=== PATIENT | female | born 1970 | race Caucasian/White ===

== ENCOUNTER → 2019-12-09 09:23 | Outpatient (BNVA) | payer MEDICAID, SELFPAY | PROVIDERS: Family Provider Registered Nurse; PCP Nurse Practitioner Family; Visit Provider Nurse Practitioner | DX: G89.29 Other chronic pain (principal); M48.061 Spinal stenosis, lumbar region without neurogenic claudication; F17.210 Nicotine dependence, cigarettes, uncomplicated; Z79.891 Long term (current) use of opiate analgesic | CPT/HCPCS: 99212; 99213 ==

== ENCOUNTER → 2019-12-23 10:50 | Outpatient (BNVA) | payer MEDICAID, SELFPAY | PROVIDERS: Family Provider Registered Nurse; PCP Nurse Practitioner Family; Visit Provider Nurse Practitioner Psychiatric/Mental Health | DX: F43.12 Post-traumatic stress disorder, chronic (principal); F33.2 Major depressive disorder, recurrent severe without psychotic features; F10.21 Alcohol dependence, in remission; F17.210 Nicotine dependence, cigarettes, uncomplicated | CPT/HCPCS: 99213 ==

== ENCOUNTER → 2020-02-05 09:36 | Outpatient (BNVA) | payer MEDICAID, SELFPAY | PROVIDERS: Family Provider Registered Nurse; PCP Nurse Practitioner Family; Visit Provider Nurse Practitioner | DX: M48.061 Spinal stenosis, lumbar region without neurogenic claudication (principal); M47.816 Spondylosis without myelopathy or radiculopathy, lumbar region; F17.210 Nicotine dependence, cigarettes, uncomplicated; Z79.891 Long term (current) use of opiate analgesic; Z71.6 Tobacco abuse counseling | CPT/HCPCS: 99213; 99214 ==

== ENCOUNTER 2020-03-22 10:48 | Outpatient (CLI) | payer MEDICAID, SELFPAY ==
--- NOTE | 2020-03-22 11:00 | MR_ITS ---
WS: [id number] MRI LUMBAR SPINE NONCONTRAST HISTORY: lumbar pain COMPARISON: 04/02/2019 TECHNIQUE: Sagittal and axial multisequence imaging is submitted. Prior cervical fusion. Normal lumbar alignment. No fractures or marrow edema. Mild disc space narrowing and desiccation at L4-5 and L5-S1. No progression. Conus terminates normally at L1-2 disc level. L1-L2: Normal. L2-L3: Small amount of fluid in the facet joints. No stenosis. L3-L4: Asymmetric facet joint arthropathy, greatest on the RIGHT. RIGHT facet joint arthritis and lig amentum flavum hypertrophy encroaching upon the RIGHT lateral thecal sac with mild deformity. Small a mount of fluid in the facet joints bilaterally. Moderate stenosis involving the RIGHT subarticular re cess and proximal foramen without progression. L4-L5: Moderate ligamentum flavum hypertrophy and facet arthritis with mild annular disc bulging. No focal disc protrusion. Bilateral facet joint cysts. Mild central stenosis. Moderate RIGHT and moderat e to severe LEFT foraminal stenosis without significant progression of disease. Bilateral annular fis sures. L5-S1: Moderate facet joint arthritis bilaterally with mild ligamentum flavum hypertrophy. Very mild encroachment upon the central thecal sac. Mild osteophytic ridging. Mild bilateral foraminal narrowin g. Fluid in the facet joint on the RIGHT. Bilateral facet joint cysts. Paraspinal soft tissues are negative. Mild atherosclerosis aorta. MR/MR lumbar spine wo con* [id number] IMPRESSION: 1. Stenoses and degenerative changes at L4-5 and L5-S1 are similar to the prio r study. Most significant stenosis involving the foramina at L4-5. 2. Moderate RIGHT subarticular recess and proximal foraminal stenosis at L3-4 with no change. 3. Mild central stenosis with moderate RIGHT and moderate to severe LEFT kimberly inal stenosis at L4-5. 4. Mild bilateral foraminal stenosis at L5-S1. Not quite as significant as on the prior study but there is still advanced facet joint arthritis.
--- NOTE | 2020-03-22 12:29 | XRR_ITS ---
PROCEDURE INFORMATION: Exam: XR Lumbosacral Spine, 2 or 3 Views Exam date and time: 03/22/2020 12:38 PM Age: 49 years old Clinical indication: Low back pain; Additional info: Lumbar pain x 5 years TECHNIQUE: Imaging protocol: XR of the lumbosacral spine, 2 or 3 views. COMPARISON: CR Lumbar Spine Flex/Extens [id number] 10/22/2018 4:22 PM FINDINGS: Vertebrae: Degenerative change with prominent lumbar facet arthropathy. Anatomic alignment. No instability. Questionable L5 spondylolysis, which can be better evaluated with oblique radiographs. Gastrointestinal tract: Prominent stool. Vasculature: Vascular calcification. XR/XR lumbar spine f/e only [id number] IMPRESSION: Degenerative change with prominent lumbar facet arthropathy.
== END 2020-03-22 10:49 | disposition home or self-care (01) ==
LOC: RADSHAW 10:51
PROVIDERS: PCP Nurse Practitioner Family; Visit Provider Specialist
DX: M54.5 Low back pain (principal); M47.816 Spondylosis without myelopathy or radiculopathy, lumbar region; M48.07 Spinal stenosis, lumbosacral region
CPT/HCPCS: 72120; 72148

== ENCOUNTER → 2020-05-11 13:10 | Outpatient (BNVA) | payer MEDICAID, SELFPAY | PROVIDERS: Family Provider Registered Nurse; PCP Nurse Practitioner Family; Visit Provider Anesthesiology | DX: M48.061 Spinal stenosis, lumbar region without neurogenic claudication (principal); M47.816 Spondylosis without myelopathy or radiculopathy, lumbar region; M54.16 Radiculopathy, lumbar region; M25.50 Pain in unspecified joint; F17.210 Nicotine dependence, cigarettes, uncomplicated; Z79.891 Long term (current) use of opiate analgesic; Z71.6 Tobacco abuse counseling | CPT/HCPCS: 99214 ==

== ENCOUNTER → 2020-07-07 13:29 | Outpatient (BNVA) | payer MEDICAID, SELFPAY | PROVIDERS: Family Provider Registered Nurse; PCP Nurse Practitioner Family; Visit Provider Anesthesiology | DX: M48.061 Spinal stenosis, lumbar region without neurogenic claudication (principal); M54.16 Radiculopathy, lumbar region; M47.816 Spondylosis without myelopathy or radiculopathy, lumbar region; M25.50 Pain in unspecified joint; F17.210 Nicotine dependence, cigarettes, uncomplicated; Z79.891 Long term (current) use of opiate analgesic | CPT/HCPCS: 99213; 99214 ==

== ENCOUNTER → 2020-07-27 07:50 | Outpatient (BNVA) | payer MEDICAID, SELFPAY | PROVIDERS: Family Provider Registered Nurse; PCP Nurse Practitioner Family; Visit Provider Nurse Practitioner Psychiatric/Mental Health | DX: F43.12 Post-traumatic stress disorder, chronic (principal); F33.2 Major depressive disorder, recurrent severe without psychotic features; F10.21 Alcohol dependence, in remission; F17.210 Nicotine dependence, cigarettes, uncomplicated | CPT/HCPCS: 99214 ==

== ENCOUNTER → 2020-08-18 12:01 | Outpatient (BNVA) | payer MEDICAID, SELFPAY | PROVIDERS: Family Provider Registered Nurse; PCP Nurse Practitioner Family; Referring Provider Specialist; Visit Provider Specialist | DX: G62.9 Polyneuropathy, unspecified; G83.11 Monoplegia of lower limb affecting right dominant side; M62.838 Other muscle spasm; G57.01 Lesion of sciatic nerve, right lower limb | CPT/HCPCS: 99204 ==

== ENCOUNTER → 2020-08-24 07:34 | Outpatient (BNVA) | payer MEDICAID, SELFPAY | PROVIDERS: Family Provider Registered Nurse; PCP Nurse Practitioner Family; Visit Provider Nurse Practitioner Psychiatric/Mental Health | DX: F43.12 Post-traumatic stress disorder, chronic (principal); F33.2 Major depressive disorder, recurrent severe without psychotic features; F10.21 Alcohol dependence, in remission; F17.210 Nicotine dependence, cigarettes, uncomplicated; F25.0 Schizoaffective disorder, bipolar type | CPT/HCPCS: 99214 ==

== ENCOUNTER → 2020-09-03 13:10 | Outpatient (BNVA) | payer MEDICAID, SELFPAY | PROVIDERS: Family Provider Registered Nurse; PCP Nurse Practitioner Family; Visit Provider Anesthesiology | DX: M48.061 Spinal stenosis, lumbar region without neurogenic claudication (principal); M54.16 Radiculopathy, lumbar region; M47.816 Spondylosis without myelopathy or radiculopathy, lumbar region; F17.210 Nicotine dependence, cigarettes, uncomplicated; Z79.891 Long term (current) use of opiate analgesic | CPT/HCPCS: 99213; 99214 ==

== ENCOUNTER → 2020-10-05 07:29 | Outpatient (BNVA) | payer MEDICAID, SELFPAY | PROVIDERS: Family Provider Registered Nurse; PCP Nurse Practitioner Family; Visit Provider Nurse Practitioner Psychiatric/Mental Health | DX: F43.12 Post-traumatic stress disorder, chronic (principal); F33.2 Major depressive disorder, recurrent severe without psychotic features; F10.21 Alcohol dependence, in remission; F17.210 Nicotine dependence, cigarettes, uncomplicated | CPT/HCPCS: 99213 ==

== ENCOUNTER → 2020-11-18 12:51 | Outpatient (BNVA) | payer MEDICAID, SELFPAY | PROVIDERS: Family Provider Registered Nurse; PCP Nurse Practitioner Family; Visit Provider Nurse Practitioner | DX: M48.061 Spinal stenosis, lumbar region without neurogenic claudication (principal); M47.816 Spondylosis without myelopathy or radiculopathy, lumbar region; M54.16 Radiculopathy, lumbar region; G83.11 Monoplegia of lower limb affecting right dominant side; M25.50 Pain in unspecified joint; F17.210 Nicotine dependence, cigarettes, uncomplicated; Z79.891 Long term (current) use of opiate analgesic; Z71.6 Tobacco abuse counseling | CPT/HCPCS: 99213; 99214 ==

== ENCOUNTER → 2020-11-24 13:57 | Outpatient (BNVA) | payer MEDICAID, SELFPAY | PROVIDERS: Family Provider Registered Nurse; PCP Nurse Practitioner Family; Visit Provider Specialist | DX: G83.11 Monoplegia of lower limb affecting right dominant side (principal); F17.210 Nicotine dependence, cigarettes, uncomplicated | CPT/HCPCS: 64642; 99212; J0585 ==

== ENCOUNTER → 2020-12-22 08:14 | Outpatient (BNVA) | payer MEDICAID, SELFPAY | PROVIDERS: Family Provider Registered Nurse; Visit Provider Nurse Practitioner Psychiatric/Mental Health | DX: F43.12 Post-traumatic stress disorder, chronic (principal); F33.2 Major depressive disorder, recurrent severe without psychotic features; F10.21 Alcohol dependence, in remission; F17.210 Nicotine dependence, cigarettes, uncomplicated | CPT/HCPCS: 99214 ==

== ENCOUNTER → 2021-01-13 09:19 | Outpatient (BNVA) | payer MEDICAID, SELFPAY | PROVIDERS: Family Provider Registered Nurse; PCP Nurse Practitioner Family; Visit Provider Nurse Practitioner | DX: G83.11 Monoplegia of lower limb affecting right dominant side (principal); M48.061 Spinal stenosis, lumbar region without neurogenic claudication; M47.816 Spondylosis without myelopathy or radiculopathy, lumbar region; M54.16 Radiculopathy, lumbar region; M25.50 Pain in unspecified joint; F17.210 Nicotine dependence, cigarettes, uncomplicated; Z79.1 Long term (current) use of non-steroidal anti-inflammatories (NSAID); Z79.891 Long term (current) use of opiate analgesic | CPT/HCPCS: 99213; 99214 ==

== ENCOUNTER → 2021-01-27 08:11 | Outpatient (BNVA) | payer MEDICAID, SELFPAY | PROVIDERS: Family Provider Registered Nurse; Visit Provider Nurse Practitioner Psychiatric/Mental Health | DX: F43.12 Post-traumatic stress disorder, chronic (principal); F33.2 Major depressive disorder, recurrent severe without psychotic features; F10.21 Alcohol dependence, in remission; F17.210 Nicotine dependence, cigarettes, uncomplicated | CPT/HCPCS: 99214 ==

== ENCOUNTER → 2021-02-24 09:38 | Outpatient (BNVA) | payer MEDICAID, SELFPAY | PROVIDERS: Family Provider Registered Nurse; Visit Provider Nurse Practitioner Psychiatric/Mental Health | DX: F43.12 Post-traumatic stress disorder, chronic (principal); F33.2 Major depressive disorder, recurrent severe without psychotic features; F10.21 Alcohol dependence, in remission; F17.210 Nicotine dependence, cigarettes, uncomplicated | CPT/HCPCS: 99214 ==

== ENCOUNTER → 2021-03-15 11:20 | Outpatient (BNVA) | payer MEDICAID, SELFPAY | PROVIDERS: Family Provider Registered Nurse; PCP Nurse Practitioner Family; Visit Provider Nurse Practitioner | DX: M48.061 Spinal stenosis, lumbar region without neurogenic claudication (principal); M47.816 Spondylosis without myelopathy or radiculopathy, lumbar region; M54.16 Radiculopathy, lumbar region; G83.11 Monoplegia of lower limb affecting right dominant side; F17.210 Nicotine dependence, cigarettes, uncomplicated; Z79.1 Long term (current) use of non-steroidal anti-inflammatories (NSAID); Z79.891 Long term (current) use of opiate analgesic; Z71.6 Tobacco abuse counseling | CPT/HCPCS: 99214 ==

== ENCOUNTER → 2021-03-28 07:35 | Outpatient (BNVA) | payer MEDICAID, SELFPAY | PROVIDERS: Family Provider Registered Nurse; PCP Nurse Practitioner Family; Visit Provider Nurse Practitioner Psychiatric/Mental Health | DX: F43.12 Post-traumatic stress disorder, chronic (principal); F33.2 Major depressive disorder, recurrent severe without psychotic features; F10.21 Alcohol dependence, in remission; F17.210 Nicotine dependence, cigarettes, uncomplicated | CPT/HCPCS: 99214 ==

== ENCOUNTER → 2021-04-25 08:08 | Outpatient (BNVA) | payer MEDICAID, SELFPAY | PROVIDERS: Family Provider Registered Nurse; PCP Nurse Practitioner Family; Visit Provider Nurse Practitioner Psychiatric/Mental Health | DX: F43.12 Post-traumatic stress disorder, chronic (principal); F33.2 Major depressive disorder, recurrent severe without psychotic features; F10.21 Alcohol dependence, in remission; F17.210 Nicotine dependence, cigarettes, uncomplicated | CPT/HCPCS: 99214 ==

== ENCOUNTER → 2021-05-10 10:57 | Outpatient (BNVA) | payer MEDICAID, SELFPAY | PROVIDERS: Family Provider Registered Nurse; PCP Nurse Practitioner Family; Visit Provider Nurse Practitioner | DX: M47.816 Spondylosis without myelopathy or radiculopathy, lumbar region (principal); M48.061 Spinal stenosis, lumbar region without neurogenic claudication; M54.16 Radiculopathy, lumbar region; M25.50 Pain in unspecified joint; G83.11 Monoplegia of lower limb affecting right dominant side; F17.210 Nicotine dependence, cigarettes, uncomplicated; Z79.1 Long term (current) use of non-steroidal anti-inflammatories (NSAID); Z79.891 Long term (current) use of opiate analgesic; Z71.6 Tobacco abuse counseling | CPT/HCPCS: 99214 ==

== ENCOUNTER → 2021-05-27 09:53 | Outpatient (BNVA) | payer MEDICAID, SELFPAY | PROVIDERS: Family Provider Registered Nurse; PCP Nurse Practitioner Family; Visit Provider Orthopaedic Surgery | DX: M47.896 Other spondylosis, lumbar region (principal); M54.5 Low back pain | CPT/HCPCS: 72110 ==

== ENCOUNTER → 2021-06-06 07:25 | Outpatient (BNVA) | payer MEDICAID, SELFPAY | PROVIDERS: Family Provider Registered Nurse; PCP Nurse Practitioner Family; Visit Provider Nurse Practitioner Psychiatric/Mental Health | DX: F43.12 Post-traumatic stress disorder, chronic (principal); F33.2 Major depressive disorder, recurrent severe without psychotic features; F10.21 Alcohol dependence, in remission; F17.210 Nicotine dependence, cigarettes, uncomplicated | CPT/HCPCS: 99214 ==

== ENCOUNTER → 2021-07-06 10:22 | Outpatient (BNVA) | payer MEDICAID, SELFPAY | PROVIDERS: PCP Nurse Practitioner Family; Visit Provider Anesthesiology | DX: M48.061 Spinal stenosis, lumbar region without neurogenic claudication (principal); M54.16 Radiculopathy, lumbar region; M47.816 Spondylosis without myelopathy or radiculopathy, lumbar region; M48.062 Spinal stenosis, lumbar region with neurogenic claudication; F17.210 Nicotine dependence, cigarettes, uncomplicated; Z79.891 Long term (current) use of opiate analgesic; Z79.1 Long term (current) use of non-steroidal anti-inflammatories (NSAID) | CPT/HCPCS: 99213 ==

== ENCOUNTER → 2021-07-08 11:35 | Outpatient (BNVA) | payer MEDICAID, SELFPAY | PROVIDERS: PCP Nurse Practitioner Family; Visit Provider Orthopaedic Surgery | DX: Z01.812 Encounter for preprocedural laboratory examination (principal); Z20.822 Contact with and (suspected) exposure to COVID-19 | CPT/HCPCS: 87635 ==

== ENCOUNTER → 2021-07-09 14:46 | Outpatient (BNVA) | payer MEDICAID, SELFPAY | PROVIDERS: PCP Nurse Practitioner Family; Visit Provider Registered Nurse Neonatal Intensive Care | DX: Z20.2 Contact with and (suspected) exposure to infections with a predominantly sexual mode of transmission (principal) | CPT/HCPCS: 87491; 87591; 87661 ==

== ENCOUNTER 2021-07-11 11:41 | Day surgery (SDC) | payer MEDICAID, SELFPAY ==
[2021-07-01 09:38] VITALS: BMI 29.4
--- NOTE | 2021-07-01 09:53 | ANES.PREANE2 ---
Pre-Anesthetic Assessment Pre-Anesthetic Assessment: Height/Weight: Height 1.7 m Weight 85.275 kg Preop Diagnosis: back pain Proposed Procedure: Operation Date: 07/11/21 10:20 Proposed Procedures p MIS lumbar decompression L3/4 97922 L4/5 49937 M48.062(Not Applicable) - Eusebio Pereira DO Familial anesthetic complications: none Social: Social History: Tobacco and No alcohol Exam: Pre-Anes Outpt Exam: alert, oriented x 3, clear to auscultation bilaterally and regular rate & rhythm Airway: Cervical ROM: WNL MP: 2 Dentition: Full Pulmonary: Pulmonary: COPD Musc/skel: Musc/skel: Lower Back Pain Neuropsych: Comments: R leg anesthesia Anesthetic Plan: ASA status: 3 Anesthesia: General Risk of > 500 ml blood loss (7ml/kg in children): No PFSH Anesthesia PFSH: Medical History (Updated 05/27/21 @ 10:30 by Eusebio Pereira DO) Alcohol use disorder, moderate, in sustained remission Chronic post-traumatic stress disorder Generalized joint pain Heavy cigarette smoker 1-1.5 pack cigarettes per day Lumbar spondylosis Major depressive disorder, recurrent severe without psychotic features Smoker Spinal stenosis of lumbar region with radiculopathy Surgical History H/O spinal fusion 1998 [facility] C5-C6 DISCECTOMY/ FUSION/ FIXATION Hx of foot surgery (~2017) RIGHT FOOT SURGERY POST WOUND NOT HEALING OSTEOMYLITIS S/P correction of deviated nasal septum S/P excision of ganglion cyst S/P tonsillectomy Status post carpal tunnel release of both wrists Status post delivery Family History Father Cancer STOMACH CANCER Mother Dementia Other Heart disease Social History Smoking and tobacco status: current every day smoker cigarettes Years cigarettes smoked: 40 [ Other cigarette details: 1 TO 1.5 PKS DAY ] Quit status (tobacco): not considering quitting Second hand smoke exposure: Yes Smoking risk assessment/counseling performed?: No Alcohol intake: former Former alcohol use details: QUIT 2014 Adopted: No Caregiver/support person: No Lives independently: Yes Household members: none Housing: Apartment Marital status: Marital status details: since 2009 Number of children: 3 Number of grandchildren: 6 Highest education level completed: GED or Equivalent service: No Current occupational status: disabled Current occupational exposures/hazards: No Pets and animals: No History of recent travel: No Leisure activites: other Leisure activities details: TV and plant weinstein Sexually active: No Current gender identity: Female Celeste/Protestant: Restorationism Special celeste needs: No Agree to transfusion: Yes Financial difficulty paying for basics: Not Very Hard Female Reproductive History: Para: 3 Spontaneous abortions: No Data Anesthesia Cardiac Studies: No Data to Display
[2021-07-11] VITALS (9 sets, daily range): BP systolic 91–132; BP diastolic 64–96; PULSE 62–113; RESP 15–18; TEMP 36.1–36.7; O2SAT 93–99
--- NOTE | 2021-07-11 | SCC_ITS ---
Procedure Done: 1. right L3/4 laminectomy with partial facetectomy 2. right L4/5 laminectomy with partial facetectomy 34.4 seconds of fluoroscopic guidance, for a cumulative dose of 10.12 mGy, was provided to Dr. Pereira by the radiology department. C-arm images of the lumbar spine were saved for the patient's permanent record. [facility]
--- NOTE | 2021-07-11 | XR_ITS ---
WS: [id number] C-ARM RADIOGRAPHS LUMBAR SPINE; 8 IMAGES HISTORY: VALENTINE PICS COMPARISON: None available. Intraoperative imaging during fusion of the lumbar spine. XR/XR lumbar spine 1V port [id number] IMPRESSION: Intraoperative imaging during lumbar fusion.
[2021-07-11] MEDS: sodium chloride 0.9% 1,000 ML 30 ML IV (12:39)
--- NOTE | 2021-07-11 13:02 | P.ANESUD_ITS ---
Pre-Anesthetic Update Pre-Anesthetic Assessment: Date of Surgery/Procedure: 07/11/21 Preop Che gnosis: lumbar stenosis with neurogenic claudication Proposed Procedure: Operation Date: 07/11/21 13:10 Proposed Procedures p MIS lumbar decompression L3/4 77578 L4/5 10058 M48.062(Not Applicable) - Eusebio Pereira, DO Any changes to Pre-Anesthetic Assessment?: No Last Intake: Intake Last Liquid Date 07/10/21 Last Liquid Time 23:59 Last Solid Date 07/10/21 Last Solid Time 18:00 Vitals: Temperature 98.1 F 07/11/21 12:10 Temperature Source Temporal Artery S can 07/11/21 12:10 Pulse Rate 62 07/11/21 12:10 Respiratory Rate 18 07/11/21 12:10 Blood Pressure 91/64 07/11/21 12:10 Blood Pressure Zena n 73 07/11/21 12:10 Pulse Oximetry 99 07/11/21 12:10 Oxygen Delivery Me thod 07/11/21 12:41 Exam: Pre-Anes Outpt Exam: alert, oriented x 3, clear to auscultation bilaterally and regular rate & rhythm Cardiac Studies: No Data to Display
--- NOTE | 2021-07-11 13:34 | PM.HP ---
Providers/Chief Complaint Primary Care Provider: Daljit Rosen Chief Complaint: MIS lumbar decompression L3/4 94829 L4/5 History of Present Illness Kailyn Jeffers is a 50 year old female She states in 2014 she tried to commit suicide by consume pills. She states she has no sensation to her right lower extremity. Her pain today is 5/10. Chief Complaint: low back pain Onset: 2014 Duration: 6 years Characteristics: sharp, tight, ache, weakness Severity: 510 Location: low back Radiating symptoms: hips, posterior thigh Aggravating factors: walking Alleviating factors: laying down , ice with some relief Neuro deficits: denies incontinence of bowel/bladder, saddle anesthesia. Prior tx: injection with Hien Lozano Review of Systems Narrative: General ROS: negative for weight changes, fever ENT ROS: negative for nasal congestion, drainage or bleeding, sore throat, dysphagia or ear pain Eyes: PERRL Hematological and Lymphatic ROS: negative for swollen glands or abnormal bleeding Endocrine ROS: negative for polyuria/polydpsia or new changes in weight Respiratory ROS: negative for cough, shortness of breath, or wheezing Cardiovascular ROS: negative for chest pain or dyspnea on exertion Gastrointestinal ROS: negative for reflux, abdominal pain, change in bowel habits, or black or bloody stools Musculoskeletal ROS: negative for back pain, neck pain, or joint pain or swelling except for current problem Neurological ROS: negative for TIA or stoke symptoms Skin: no rashes Medications/Allergies Home Medications Medication Instructions Recorded Confirmed Last Taken Type acetaminophen 500 mg tablet 1,000 mg PO TID PRN tab 12/03/19 07/09/21 Unknown History albuterol sulfate 90 mcg/actuation 2 puff INHALATION Q6H PRN 12/03/19 07/09/21 07/10/21 History aerosol inhaler ibuprofen 600 mg tablet 600 mg PO Q6H PRN 12/03/19 07/09/21 Unknown History zonisamide 100 mg capsule 400 mg PO DAILY #120 cap 02/21/21 07/09/21 07/11/21 09:00 Rx atorvastatin 40 mg tablet 40 mg PO DAILY 03/15/21 07/09/21 07/09/21 History pregabalin 300 mg capsule 300 mg PO BID 30 Days #60 cap 05/24/21 07/09/21 07/11/21 09:00 Rx trazodone 50 mg tablet 50 mg PO .bedtime PRN #30 tab 06/06/21 07/09/21 07/10/21 Rx Vitamin D3 1 tab PO DAILY 07/01/21 07/09/21 07/11/21 09:00 History ascorbic acid (vitamin C) 500 mg 250 mg PO .6 tabs day tab 07/06/21 07/11/21 07/11/21 09:00 History tablet diclofenac sodium 75 mg 75 mg PO BID #60 tab 07/06/21 07/11/21 07/11/21 09:00 Rx tablet,delayed release gabapentin 600 mg tablet 600 mg PO .HS #30 tab 07/06/21 07/11/21 07/10/21 Rx oxycodone 15 mg tablet 15 mg PO TID PRN 30 Days #90 tab 07/06/21 07/11/21 07/11/21 09:00 Rx tizanidine 4 mg tablet 4 - 8 mg PO TID PRN 30 Days #180 07/06/21 07/11/21 07/11/21 09:00 Rx tab ipratropium-albuterol [Combivent 1 puff INHALATION DAILY 07/11/21 07/11/21 07/10/21 History Respimat] Allergies Allergy/AdvReac Type Severity Reaction Status Date / Time bacitracin Allergy BLISTERS Verified 07/09/21 12:33 [From Neosporin ([id number])] neomycin Allergy BLISTERS Verified 07/09/21 12:33 [From Neosporin ([id number])] polymyxin B Allergy BLISTERS Verified 07/09/21 12:33 [From Neosporin ([id number])] PFSH Acute PFSH: Medical History Alcohol use disorder, moderate, in sustained remission Chronic post-traumatic stress disorder Generalized joint pain Heavy cigarette smoker 1-1.5 pack cigarettes per day Lumbar spondylosis Major depressive disorder, recurrent severe without psychotic features Smoker Spinal stenosis of lumbar region with radiculopathy Surgical History H/O spinal fusion 1998 [facility] C5-C6 DISCECTOMY/ FUSION/ FIXATION Hx of foot surgery (~2017) RIGHT FOOT SURGERY POST WOUND NOT HEALING OSTEOMYLITIS S/P correction of deviated nasal septum S/P excision of ganglion cyst S/P tonsillectomy Status post carpal tunnel release of both wrists Status post delivery Family History Father Cancer STOMACH CANCER Mother Dementia Other Heart disease Social History Smoking and tobacco status: current every day smoker cigarettes Years cigarettes smoked: 40 [ Other cigarette details: 1 TO 1.5 PKS DAY ] Quit status (tobacco): not considering quitting Second hand smoke exposure: Yes Smoking risk assessment/counseling performed?: No Alcohol intake: former Former alcohol use details: QUIT 2014 Adopted: No Caregiver/support person: No Lives independently: Yes Household members: none Housing: Apartment Marital status: Marital status details: since 2009 Number of children: 3 Number of grandchildren: 6 Highest education level completed: GED or Equivalent service: No Current occupational status: disabled Current occupational exposures/hazards: No Pets and animals: No History of recent travel: No Leisure activites: other Leisure activities details: TV and plant weinstein Sexually active: No Current gender identity: Female Celeste/Faith: Anabaptist Special celeste needs: No Agree to transfusion: Yes Financial difficulty paying for basics: Not Very Hard Female Reproductive History: Para: 3 Spontaneous abortions: No Vitals/I&O/Wt Last Vital Signs Temp 98.1 F 07/11/21 12:10 Pulse 62 07/11/21 12:10 Resp 18 07/11/21 12:10 BP 91/64 07/11/21 12:10 Pulse Ox 99 07/11/21 12:10 Physical Exam Narrative: EXAM NARRATIVE: General ROS: negative for weight changes, fever ENT ROS: negative for nasal congestion, drainage or bleeding, sore throat, dysphagia or ear pain Eyes: PERRL Hematological and Lymphatic ROS: negative for swollen glands or abnormal bleeding Endocrine ROS: negative for polyuria/polydpsia or new changes in weight Respiratory ROS: negative for cough, shortness of breath, or wheezing Cardiovascular ROS: negative for chest pain or dyspnea on exertion Gastrointestinal ROS: negative for reflux, abdominal pain, change in bowel habits, or black or bloody stools Musculoskeletal ROS: negative for back pain, neck pain, or joint pain or swelling except for current problem Neurological ROS: negative for TIA or stoke symptoms Skin: no rashes A&P Additional A&P Information Patient has severe lumbar stenosis at L3-4 and L4-5. Patient is complaining of right sided leg pain. My plan is to do a right L3-4 and L4-5 minimally invasive decompression. Patient's failed conservative therapy which includes injections and physical therapy. Risk and benefits of surgery explained to patient which include bleeding infection scar pain damage blood vessels nerves risk of further surgery and anesthesia risk. Attestations Medical Necessity Statement*: failed conservatieve tx Coding Level of Care Code Acute Registered Clinical Dietitian for Corazon Goldstein
--- NOTE | 2021-07-11 15:19 | PM.OP ---
Operative Report Date of procedure: July 11, 2021 Pre-op Diagnosis: lumbar stenosis with neurogenic claudication Post-op diagnosis: same Procedure Done: 1. right L3/4 laminectomy with partial facetectomy 2. right L4/5 laminectomy with partial facetectomy Surgeon: Eusebio Pereira Anesthesia: General Estimated blood loss (mL): 50 Condition: stable Disposition: PACU Procedure: 1. right L3/4 laminectomy with partial facetectomy 2. right L4/5 laminectomy with partial facetectomy Patient is brought to the operative suite. After undergoing anesthesia they are placed in the supine position. All areas of impingement are well padded. Patient is then prepped and draped in the normal sterile fashion. A skin incision is made over the L3/4 level. This is confirmed under c-arm guidance. A series of dilators are passed and the tubular retractor is docked on the L3 lamina. A bovie is used to clear the soft tissue off the lamina and the L 3/4 facet joint. A high speed paul is then used to perform the laminectomy and take down the medial aspect of the L 3/4 facet joint. A kerrison rongeure was then used to take down the remaining lamina and smooth the edge of the laminectomy up to the point where the ligamentum flavum attaches. Attention was then brought to the medial aspect of the facet joint. The remaining medial aspect of the superior and inferior aspect of the facet joint were taken down with the kerrison from the pedicle of L3 to L 4. The facet joint had significant hypertrophy. Attention was then brought to the Ligamentum Flavum. The ligament was taken down from the lamina of L3 to L4 and out medially to the remaining facet joint. The ligament was thick. The dura was then exposed. The dura was in good repair. The L3 nerve was then traced with a curette out the L3/4 foramen and found to be adequately decompressed. The L4 nerve was traced with a curette around the L4 pedicle. The lateral recess was opened with a kerrison helping to further decompress the L4 nerve. A skin incision is made over the L4/5 level. This is confirmed under c-arm guidance. A series of dilators are passed and the tubular retractor is docked on the L4 lamina. A bovie is used to clear the soft tissue off the lamina and the L 4/5 facet joint. A high speed paul is then used to perform the laminectomy and take down the medial aspect of the L 4/5 facet joint. A kerrison rongeure was then used to take down the remaining lamina and smooth the edge of the laminectomy up to the point where the ligamentum flavum attaches. Attention was then brought to the medial aspect of the facet joint. The remaining medial aspect of the superior and inferior aspect of the facet joint were taken down with the kerrison from the pedicle of L4 to L 5. The facet joint had significant hypertrophy. Attention was then brought to the Ligamentum Flavum. The ligament was taken down from the lamina of L4 to L5 and out medially to the remaining facet joint. The ligament was thick. The dura was then exposed. The dura was in good repair. The L4 nerve was then traced with a curette out the L4/5 foramen and found to be adequately decompressed. The L5 nerve was traced with a curette around the L5 pedicle. The lateral recess was opened with a kerrison helping to further decompress the L5 nerve. Wound is then irrigated copiously with saline and surgiflo is used to stop any bleeding. The tubular retractor is removed and the wound is closed with vicryl and monocryl suture. Glue is then used to protect the wound. A sterile dressing is then placed. Patient was then placed in the supine position and transferred to the PACU in stable condition.
--- NOTE | 2021-07-11 15:41 | SUR.PHASEI ---
PT MORE AWAKE ALERT WITH GOOD RESP NOTED PT ON RA TRIAL TAKING OCC ICE CHIPS VSS.
--- NOTE | 2021-07-11 15:42 | SUR.PHASEI ---
PT SATS 93-94% ON RA PT COUGHING TO COMMAND TAKING ICE CHIPS MOVES ALL EXTREMITIES TO COMMAND AND, STRONGLY.
[2021-07-11] MEDS: fentaNYL 50 mcg/mL INJ 2mL IVP (15:46)
--- NOTE | 2021-07-11 16:01 | ANE.PACU2 ---
Inpatient post-anesthesia follow up: Airway intact: Yes Vital signs: Temperature 97.1 F Pulse Rate 83 Respiratory Rate 17 Blood Pressure 130/85 Pulse Oximetry 93 Oxygen Delivery Me thod Room Air Oxygen Flow Rate 6 Fraction of Inspir ed Oxygen Hydration adequate: Yes Nausea and vomiting: No Pain level: 2 Mental status: Baseline
== END 2021-07-11 17:15 | disposition home or self-care (01) ==
PROVIDERS: PCP Nurse Practitioner Family; Visit Provider Orthopaedic Surgery
PROC: (CPT 63005; principal; 2021-07-11 13:10)
DX: M48.062 Spinal stenosis, lumbar region with neurogenic claudication (principal); F17.210 Nicotine dependence, cigarettes, uncomplicated; Z98.1 Arthrodesis status; J44.9 Chronic obstructive pulmonary disease, unspecified
CPT/HCPCS: 63047; 63048; 72020; 76000; 96365; J0690; J1100; J2405; J2704; J3010; J3490; J7030

== ENCOUNTER → 2021-08-01 07:40 | Outpatient (BNVA) | payer MEDICAID, SELFPAY | PROVIDERS: PCP Nurse Practitioner Family; Visit Provider Nurse Practitioner Psychiatric/Mental Health | DX: F43.12 Post-traumatic stress disorder, chronic (principal); F33.2 Major depressive disorder, recurrent severe without psychotic features; F10.21 Alcohol dependence, in remission; F17.210 Nicotine dependence, cigarettes, uncomplicated | CPT/HCPCS: 99214 ==

== ENCOUNTER → 2021-09-06 14:54 | Outpatient (BNVA) | payer MEDICAID, SELFPAY | PROVIDERS: PCP Nurse Practitioner Family; Visit Provider Physician Assistant | DX: Z48.89 Encounter for other specified surgical aftercare (principal) | CPT/HCPCS: 72110 ==

== ENCOUNTER → 2021-09-27 11:00 | Outpatient (BNVA) | payer MEDICAID, SELFPAY | PROVIDERS: PCP Nurse Practitioner Family; Visit Provider Anesthesiology | DX: G89.29 Other chronic pain (principal); M47.816 Spondylosis without myelopathy or radiculopathy, lumbar region; M48.061 Spinal stenosis, lumbar region without neurogenic claudication; M48.062 Spinal stenosis, lumbar region with neurogenic claudication; M54.16 Radiculopathy, lumbar region; G62.9 Polyneuropathy, unspecified; F17.210 Nicotine dependence, cigarettes, uncomplicated; Z79.1 Long term (current) use of non-steroidal anti-inflammatories (NSAID); Z79.891 Long term (current) use of opiate analgesic; Z71.6 Tobacco abuse counseling | CPT/HCPCS: 99214 ==

== ENCOUNTER → 2021-12-06 10:35 | Outpatient (BNVA) | payer MEDICAID, SELFPAY | PROVIDERS: PCP Nurse Practitioner Family; Visit Provider Anesthesiology | DX: M47.816 Spondylosis without myelopathy or radiculopathy, lumbar region (principal); M48.061 Spinal stenosis, lumbar region without neurogenic claudication; M48.062 Spinal stenosis, lumbar region with neurogenic claudication; G57.00 Lesion of sciatic nerve, unspecified lower limb; G62.9 Polyneuropathy, unspecified; F17.210 Nicotine dependence, cigarettes, uncomplicated; Z79.891 Long term (current) use of opiate analgesic | CPT/HCPCS: 99213 ==

== ENCOUNTER → 2022-04-24 13:17 | Outpatient (BNVA) | payer MEDICAID, SELFPAY | PROVIDERS: PCP Nurse Practitioner Family; Visit Provider Nurse Practitioner Psychiatric/Mental Health | DX: F33.2 Major depressive disorder, recurrent severe without psychotic features (principal); F43.12 Post-traumatic stress disorder, chronic; F17.210 Nicotine dependence, cigarettes, uncomplicated; F10.21 Alcohol dependence, in remission | CPT/HCPCS: 80053; 80061; 83036; 99214 ==

== ENCOUNTER 2022-06-23 12:46 | Emergency (ER) | payer MEDICAID, SELFPAY ==
[2022-06-23 12:57] VITALS: BP 93/63; PULSE 69; RESP 16; TEMP 36.4; O2SAT 98; BMI 29.0
--- NOTE | 2022-06-23 13:06 | XR_ITS ---
WS: [id number] XR foot RT min 3V* [id number] REASON FOR EXAM: pain after kicking bed this morning FINDINGS: No fracture or focal bone lesion. Findings of moderate osteoarthritis in the metatarsal-phalangeal and tarsal metatarsal joint of the g reat toe with mild valgus deformity. Remainder of the joint spaces of the right forefoot, midfoot, and hindfoot are intact and without sig nificant abnormality. No bone abnormality in the midfoot or hindfoot. XR/XR foot RT min 3V* [id number] IMPRESSION: No acute abnormality. Osteoarthritis great toe.
--- NOTE | 2022-06-23 14:13 | ED_ITS ---
HPI - Extremity Problem General: Chief complaint: Extremity Injury, Lower Stated complaint: right foot injury Time Seen by Provider: 06/23/22 13:06 History of Present Illness: Patient is a 51-year-old female comes to the ED with right foot pain. Just prior to arrival patient was walking in her house and stubbed her foot on her bed. Patient has peripheral neuropathy and does not feel her feet. Denies any pain in right foot. She just wanted to get checked out to make sure she did not break any bones. Associated symptoms: Deny chest pain, fever(s) or rash Review of Systems Const: Denies: fever(s), chills or fatigue Eyes: Denies: change in vision or eye discomfort ENMT: Denies: throat pain, odynophagia, nasal discharge or nasal congestion Card: Denies: chest pain, palpitations, edema, swelling of feet/ankles, dyspnea on exertion or orthopnea Resp: Denies: dyspnea, productive cough or non-productive cough GI: Denies: abdominal pain, nausea, vomiting, diarrhea, constipation or hematochezia : Denies: flank pain, dysuria or hematuria Musc: Reports: extremity pain (Right foot) and extremity swelling (Right foot); Denies: neck pain or back pain Skin/Breast: Denies: rash or new lesions Neuro: Denies: headache(s), numbness in extremities or weakness in extremities PFSH ED PFSH: Medical History Alcohol use disorder, moderate, in sustained remission Chronic post-traumatic stress disorder Cigarette smoker motivated to quit Generalized joint pain Heavy cigarette smoker 1-1.5 pack cigarettes per day Lumbar spondylosis Major depressive disorder, recurrent severe without psychotic features Psychiatric care Smoker Spinal stenosis of lumbar region with radiculopathy Surgical History H/O spinal fusion 1998 [facility] C5-C6 DISCECTOMY/ FUSION/ FIXATION Hx of foot surgery (~2017) RIGHT FOOT SURGERY POST WOUND NOT HEALING OSTEOMYLITIS S/P correction of deviated nasal septum S/P excision of ganglion cyst S/P tonsillectomy Status post carpal tunnel release of both wrists Status post delivery Family History Father Cancer STOMACH CANCER Mother Dementia Other Heart disease Social History (Updated 12/06/21 @ 11:25 by Shirley Razo LPN) Smoking and tobacco status: current every day smoker cigarettes Years cigarettes smoked: 40 [ Other cigarette details: 1 PPD] Quit status (tobacco): considering quitting Second hand smoke exposure: Yes Smoking risk assessment/counseling performed?: No Alcohol intake: former Former alcohol use details: QUIT 2014 Adopted: No Caregiver/support person: No Lives independently: Yes Household members: none Housing: Apartment Marital status: Marital status details: since 2009 Number of children: 3 Number of grandchildren: 6 Highest education level completed: GED or Equivalent service: No Current occupational status: disabled Current occupational exposures/hazards: No Pets and animals: No History of recent travel: No Leisure activites: other Leisure activities details: TV and plant weinstein Sexually active: No Current gender identity: Female Celeste/Mosque: Jewish Special celeste needs: No Agree to transfusion: Yes Financial difficulty paying for basics: Not Very Hard Female Reproductive History: Para: 3 Spontaneous abortions: No Physical Exam Const: COMMON NORMALS: no acute distress, patient oriented x3 and alert GENERAL APPEARANCE: cooperative and comfortable HENMT: COMMON NORMALS: normocephalic HEAD & SCALP: normocephalic MOUTH: Normal oral and palatal mucosa present THROAT: posterior oropharynx normal and uvula midline Neck/C-Spine: COMMON NORMALS: supple GENERAL: Yes normal visual inspection Resp: COMMON NORMALS: normal respiratory effort, No retractions, No use of accessory muscles and clear to auscultation bilaterally AUSCULTATION: clear to auscultation bilaterally Cardio: COMMON NORMALS: regular rate, regular rhythm, S1 normal heart sound present, S2 normal heart sound present, No gallops present (Cardio), No clicks present (Cardio), No murmurs present (Cardio) and Peripheral pulses 2+ throughout RATE: regular rate RHYTHM: regular rhythm HEART SOUNDS: S1 normal heart sound present and S2 normal heart sound present PERIPHERAL PULSES: Peripheral pulses 2+ throughout GI: COMMON NORMALS: Normal to inspection, nondistended, normoactive bowel sounds present, Soft to palpation, non-tender and no masses PALPATION: Yes Soft to palpation : COMMON NORMALS: Yes no CVA tenderness BLADDER/KIDNEY EXAM: Yes no CVA tenderness Back/Pelvis: COMMON NORMALS: no CVA tenderness Extremity: NARRATIVE EXTREMITY EXAM: Right foot?no visible deformity noted. Mild swelling and tenderness to lateral midfoot. Neurovascular tact. Neuro: COMMON NORMALS: patient oriented x3 SENSORIUM/ORIENTATION: Yes alert GAIT: Yes Normal gait present Skin: GENERAL SKIN EXAM: dry skin Course Vital Signs: Vital signs: Vital Signs Temperature 97.6 F 06/23/22 12:57 Pulse Rate 69 06/23/22 12:57 Respiratory Rate 16 06/23/22 12:57 Blood Pressure 93/63 06/23/22 12:57 Pulse Oximetry 98 06/23/22 12:57 Oxygen Delivery Me thod 06/23/22 12:57 MDM - Extremity (Nontraumatic) Medical Decision Making Patient is a 51-year-old female comes to the ED with right foot injury. Patient stubbed her right foot on bed. Vitals are stable. Patient appears in no acute distress or pain. Right foot has a little bit of swelling and tenderness over lateral aspect of midfoot. X-ray of right foot showed no acute fractures or findings. Patient was diagnosed with right foot contusion and was discharged home. Told to follow-up with PCP in the next week for reevaluation. Return to ED precautions given. Patient understood and agreed with plan. Lab Data Radiology Impressions Foot X-Ray 06/23/22 13:06 IMPRESSION: No acute abnormality. Osteoarthritis great toe. Discharge Plan Discharge Patient Disposition: Home Clinical Impression: Contusion of foot, right Qualifiers: Encounter type: initial encounter Qualified Code(s): S90.31XA - Contusion of right foot, initial encounter Condition: Stable Prescriptions: No Action atorvastatin 40 mg tablet 40 mg PO DAILY albuterol sulfate [ProAir HFA] 90 mcg/actuation HFA aerosol inhaler 2 puff INHALATION Q6H PRN (Reason: sob) acetaminophen [Tylenol Extra Strength] 500 mg tablet 1,000 mg PO TID PRN (Reason: Pain) oxycodone 5 mg tablet 5 mg PO TID PRN pregabalin [Lyrica] 300 mg capsule 300 mg PO BID tizanidine 4 mg tablet 4 - 8 mg PO TID PRN (Reason: muscle spasm) diclofenac sodium 75 mg tablet,delayed release (DR/EC) 75 mg PO BID fluoxetine [Prozac] 40 mg capsule 40 mg PO QAM Qty: 30 3RF Rx Instructions: Take one capsule every morning aripiprazole [Abilify] 2 mg tablet 2 mg PO .morning Qty: 30 3RF Rx Instructions: Take one tablet every morning trazodone 50 mg tablet 50 mg PO .bedtime PRN (Reason: sleep) Qty: 60 3RF Rx Instructions: Take one to two tablets at bedtime as needed for sleep Combivent Respimat 20-100 mcg/actuation mist 1 puff INHALATION DAILY Discharge Orders: Discharge ED (Routine); Ordered 06/23/22 Ordered By: Immanuel Ca Referrals: Yobany Iverson [Primary Care Provider] - Discharge Diet: Regular Discharge Activity: Increase activity as tolerated Patient Instructions: Foot Contusion (ED) Activity Restrictions/Additional Instructions: Follow-up with medical provider as directed in the next 5 to 7 days for reevaluation. Continue taking all home medications as previously prescribed. Rest, ice and elevate right foot as needed for the next couple days and limit weightbearing for the next 2 to 3 days to help with healing. Return to the ER or your medical provider if condition worsens. Please read and understand discharge instructions. Thank you for choosing [facility] for your healthcare needs today. Oni singh realize this is an emergency room and that we are providing you with a medical screening exam and this may not be complete and all inclusive of all the testing and or work up that you may need to determine your ailment or severity of your illness. It is very important that you follow up as instructed or that you return to the Emergency Department should you have concerns or if your condition changes or worsens in any way. Coding Level of Care Code ED [employer] Founder for Corazon Goldstein Exam Comprehensive
== END 2022-06-23 14:31 | disposition home or self-care (01) ==
PROVIDERS: Emergency Provider Physician Assistant; PCP Family Medicine
DX: S90.31XA Contusion of right foot, initial encounter (principal); F17.210 Nicotine dependence, cigarettes, uncomplicated; W22.03XA Walked into furniture, initial encounter
CPT/HCPCS: 73630; 99283

== ENCOUNTER 2022-06-28 15:33 | Outpatient (CLI) | payer MEDICAID, SELFPAY ==
--- NOTE | 2022-06-28 15:41 | MM_ITS ---
WS: [id number] BILATERAL 3D TOMOSYNTHESIS DIGITAL SCREENING MAMMOGRAPHY WITH CAD CLINICAL INFORMATION: SCREENING HISTORY: Screening mammogram. RIGHT breast soreness COMPARISON: February 16, 2021 TECHNIQUE: Bilateral CC and MLO views. FINDINGS: Scattered fibroglandular densities bilaterally. A few tiny punctate calcifications. No suspicious foc al mass, asymmetry, calcifications, or architectural distortion. No evidence of malignancy. MM/[place] [id number] IMPRESSION: BI-RADS: 2-Benign FOLLOW UP: 1 Year Follow-up Recommend return to annual screening mammography.
== END 2022-06-28 15:34 | disposition home or self-care (01) ==
LOC: RAD 15:34
PROVIDERS: PCP Family Medicine; Visit Provider Family Medicine
DX: Z12.31 Encounter for screening mammogram for malignant neoplasm of breast (principal)
CPT/HCPCS: 77063; 77067

== ENCOUNTER 2023-03-27 17:11 | Outpatient (CLI) | payer MEDICAID, SELFPAY ==
--- NOTE | 2023-03-27 17:15 | CT_ITS ---
WS: [id number] CT NECK TECHNIQUE: Contrast-enhanced CT of the neck with coronal and sagittal reformatted images. CLINICAL INFORMATION: NEOPLASM OF UNCERTAIN BEHAVIOR OF PHARYNX COMPARISON: None. DLP: 215.[address] scans at [facility] use at least one of these dose optimization techniques: automated e xposure control; mA and/or kV adjustment per patient size (includes targeted exams where dose is matc hed to clinical indication); or iterative reconstruction. FINDINGS: Mastoid air cells well aerated. Paranasal sinuses well aerated. Normal posterior nasopharynx. Normal parapharyngeal fat. Polypoid lesion in the posterior nasal cavity measuring 1.7 x 1.1 CM. No evidence of supraglottic or glottic mass. Normal subglottic airway. Lung apices are well aerated. Calcified g ranuloma RIGHT upper lobe. Fibrosis and emphysematous changes in the lung apices. Small nodule RIGHT upper lobe anteriorly measu ring 6 mm. Lungs can be further evaluated chest CT. A few additional smaller subcentimeter nodules. T hyroid gland appears normal. Parotid glands are normal. Submandibular glands. Straightening of the normal cervical lordosis. Prior postoperative changes in the cervical spine. CT/CT neck w con* [id number] IMPRESSION: 1. Normal salivary glands. 2. No evidence of supraglottic or glottic mass. 3. Polypoid lesion in the posterior RIGHT nasal cavity measuring 1.7 x 1.1 CM. Recommend direct visualization. 4. Otherwise normal posterior nasopharynx. 5. No cervical lymphadenopathy. 6. Small nodule RIGHT upper lobe anteriorly measuring 6 mm. Lungs can be furth er evaluated with chest CT.
[2023-03-27] MEDS: iohexol 350 mg/mL 500 mL Btl (per mL) IV (17:33)
== END 2023-03-27 17:12 | disposition home or self-care (01) ==
PROVIDERS: PCP Family Medicine; Visit Provider Otolaryngology
DX: D37.05 Neoplasm of uncertain behavior of pharynx (principal)
CPT/HCPCS: 70491; Q9967

== ENCOUNTER 2023-04-16 17:10 | Outpatient (CLI) | payer MEDICAID, SELFPAY ==
--- NOTE | 2023-04-16 17:36 | ECG_ITS ---
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 Measurements Intervals [place] Rate: 70 P: 56 FL: 152 QRS: 59 QRSD: 101 T: 59 QT: 410 QTc: 443 Interpretive Statements SINUS RHYTHM No previous ECG available for comparison Electronically Signed On 04-16-2023 18:28:22 CDT by Zen Rhodes M.D. [email or web address]
[2023-04-16 18:13] LABS: Alanine Aminotransferase 25 U/L (0-33); Alkaline Phosphatase 74 U/L (35-105); Anion Gap 14.3 (5-19); Aspartate Amino Transferase 22 U/L (0-32); Blood Urea Nitrogen 9 mg/dL (6-20); Calcium 8.9 mg/dL (8.5-10.5); Carbon Dioxide 27 mmol/L (22-29); Chloride 104 mmol/L (98-107); Globulin 2.6 g/dL (1.3-4.6); Glomerular Filtration Rate 74.7 mL/min (90-130); Glucose 106 mg/dL (65-115); NT Pro B Type Natriuretic Pept 292 pg/mL (0-125); Osmolality Calculated 291 mOsm/kg (285-295); Potassium 4.3 mmol/L (3.5-5.1); Sodium 141 mmol/L (136-145); Total Bilirubin 0.3 mg/dL (0.15-1.2); Total Protein 6.6 g/dL (6.6-8.7)
== END 2023-04-16 17:11 | disposition home or self-care (01) ==
PROVIDERS: PCP Family Medicine; Visit Provider Nurse Practitioner Psychiatric/Mental Health
DX: I50.810 Right heart failure, unspecified (principal); Z79.899 Other long term (current) drug therapy
CPT/HCPCS: 36415; 80053; 83880; 93005

== ENCOUNTER 2023-07-02 17:05 | Emergency (ER) | payer MEDICAID, SELFPAY ==
[2023-07-02 17:47] VITALS: BMI 35.5
[2023-07-02 17:50] VITALS: BP 96/67; PULSE 62; RESP 16; TEMP 36.8; O2SAT 94
--- NOTE | 2023-07-02 18:39 | XRR_ITS ---
PROCEDURE INFORMATION: Exam: XR Chest Exam date and time: 07/02/2023 6:45 PM Age: 52 years old Clinical indication: Other: Swelling; Additional info: Edema TECHNIQUE: Imaging protocol: Radiologic exam of the chest. Views: 1 view. COMPARISON: CT neck w con* [id number] 03/27/2023 5:25 PM FINDINGS: Lungs: No consolidation. Pleural spaces: No pleural effusion. No pneumothorax. Heart/Mediastinum: No cardiomegaly. Bones/joints: Postop changes of the cervical spine are noted. XR/XR chest 1V portable [id number] IMPRESSION: No acute abnormality demonstrated.
--- NOTE | 2023-07-02 18:40 | ED_ITS ---
HPI - General Adult General: Chief complaint: General Medical Stated complaint: body swelling, blisters in mouth Time Seen by Provider: 07/02/23 18:07 Source: patient and other (And) Mode of arrival: ambulatory Limitations: no limitations History of Present Illness: This patient is here in the emergency department accompanied by one of her friends. She developed some blisters on her tongue over the past few days that are painful. She is also had dependent edema which she has been off and on and apparently worsening according to the friend. Has chronic low back pain and hip pain. There is been no recent injuries. She states she has been taking all the medications prescribed. She denies any exposure to anyone with recent oral angina, herpes, upper respiratory infection etc. She denies any recent URIs sore throat etc. She is a tobacco user. She also has a history of COPD. No history of congestive heart failure or coronary disease or renal failure. [facility] ED PFSH: Medical History Alcohol use disorder, moderate, in sustained remission Chronic post-traumatic stress disorder Cigarette smoker motivated to quit Generalized joint pain Heavy cigarette smoker 1-1.5 pack cigarettes per day Lumbar spondylosis Major depressive disorder, recurrent severe without psychotic features Psychiatric care Smoker Spinal stenosis of lumbar region with radiculopathy Surgical History H/O spinal fusion 1998 [facility] C5-C6 DISCECTOMY/ FUSION/ FIXATION Hx of foot surgery (~2017) RIGHT FOOT SURGERY POST WOUND NOT HEALING OSTEOMYLITIS S/P correction of deviated nasal septum S/P excision of ganglion cyst S/P tonsillectomy Status post carpal tunnel release of both wrists Status post delivery Family History Father Cancer STOMACH CANCER Mother Dementia Other Heart disease Social History (Updated 10/24/22 @ 09:32 by Eduardo Murdock LPN) Smoking and tobacco status: current every day smoker cigarettes Years cigarettes smoked: 40 [ Other cigarette details: 1 PPD] Quit status (tobacco): considering quitting Second hand smoke exposure: Yes Smoking risk assessment/counseling performed?: No Alcohol intake: current Alcohol intake frequency: holidays/special occasions only Substance/Drug Use: current Substance/Drug use frequency: few times a month Other substance/drug use details: smokes about once a week Adopted: No Caregiver/support person: No Lives independently: Yes Household members: none Housing: Apartment Marital status: Marital status details: since 2009 Number of children: 3 Number of grandchildren: 6 Highest education level completed: GED or Equivalent service: No Current occupational status: disabled Current occupational exposures/hazards: No Pets and animals: No Leisure activites: other Leisure activities details: TV and plant weinstein Sexually active: No Do you think of yourself as: Straight/Heterosexual Current gender identity: Female Celeste/Jain: Protestant Special celeste needs: No Agree to transfusion: Yes Financial difficulty paying for basics: Not Very Hard Female Reproductive History: Para: 3 Spontaneous abortions: No Physical Exam Narrative: EXAM NARRATIVE: Patient answers questions appropriately in a goal-directed fashion. Not appear to be in any acute distress. Const: COMMON NORMALS: no acute distress, patient oriented x3 and alert GENERAL APPEARANCE: comfortable NUTRITIONAL APPEARANCE: overweight HENMT: COMMON NORMALS: normocephalic, Normal nasal mucous membranes and turbinates present and moist oral mucous membranes HEAD & SCALP: normoce phalic NOSE: Normal nasal mucous membranes and turbinates present MOUTH: Normal oral and palatal mucosa present and lip normal MOUTH IMAGES: 1. Area of leukoplakia and irregular papillae Eye: COMMON NORMALS: Equal, round and reactive pupils present, EOMs intact b ilaterally, conjunctivae normal and no scleral icterus CONJUNCTIVA: Yes c onjunctivae normal PUPIL: Yes Equal, round and reactive pupils present Neck/C-Spine: COMMON NORMALS: full ROM, no lymphadenopathy and Thyroid normal THYROID: Thyroid normal Chest: COMMONS NORMALS: normal inspection of the chest Resp: COMMON NORMALS: normal respiratory effort, No retractions, No use of accessory muscles and clear to auscultation bilaterally AUSCULTATION: clear to auscultation bilaterally Cardio: COMMON NORMALS: regular rate, regular rhythm, No murmurs present (Cardio) and Peripheral pulses 2+ throughout RATE: regular rate RHYTHM: regular rhythm PERIPHERAL PULSES: Peripheral pulses 2+ throughout GI: COMMON NORMALS: Normal to inspection, nondistended, normoactive bowel sounds present and Soft to palpation PALPATION: Yes Soft to palpation : COMMON NORMALS: Yes no CVA tenderness BLADDER/KIDNEY EXAM: Yes no CVA tenderness Back/Pelvis: COMMON NORMALS: no CVA tenderness, thoracic and lumbar spine normal to inspection and straight leg raise negative bilaterally SACROILIAC JOINTS: Yes SI joint(s) abnormal SI joint details: tender to palpation (Bilaterally but right greater than left.) Extremity: COMMON NORMALS: normal to inspection, full ROM, capillary refill normal and no calf tenderness NARRATIVE EXTREMITY EXAM: She has trace pretibial edema which is notable of both lower extremities. There is no proximal lymphadenitis, lymphadenopathy, Neuro: COMMON NORMALS: patient oriented x3, moves all extremities, no focal motor deficits and no sensory deficits noted SENSORIUM/ORIENTATION: Yes alert SPEECH: speech normal Psych: COMMON NORMALS: mental status grossly normal, denies hallucinations, denies homicidal ideation and denies suicidal ideation SPEECH: Yes slow and Yes soft MOOD & AFFECT: Yes Flat affect present INSIGHT: Limited insight present (Psych) JUDGEMENT: Fair judgement present (Psych) Skin: COMMON NORMALS: no rashes or lesions noted, no wounds and turgor normal GENERAL SKIN EXAM: no rashes or lesions noted and turgor normal Course Reevaluation(s): Reevaluation #1: Patient remains clinically stable. No new or focal findings on repeat examination. We reviewed her current findings their limitations and implications with the patient as well as the accompanying friends and family. Time: 21:10 Vital Signs: Vital signs: Vital Signs Temperature 98.3 F 07/02/23 17:50 Pulse Rate 56 L 07/02/23 21:03 Respiratory Rate 16 07/02/23 21:03 Blood Pressure 112/80 07/02/23 21:03 Pulse Oximetry 91 07/02/23 21:03 Oxygen Delivery Me thod Room Air 07/02/23 17:50 [facility] - General Adult Medical Decision Making Presented to the emergency department with various somatic complaints to include tongue blisters, peripheral edema, somnolence at times and edema. The symptoms of been going on for many many months according to the friend but she is here now because they think something needs to be done. I initially reviewed her history as well as her medications that she had presented with. There is are numerous medications to include trazodone, opiates, Lyrica etc. that may contribute to her decreased alertness at times. There is also chronic nonsteroidals as well as Lasix that may or may not be a factor in some of her edema. We will engage in a work-up to evaluate for possible acute kidney disease versus chronic kidney disease versus other potential causes for edema. And then evaluate after the studies are obtained. Laboratories are obtained. No evidence of renal dysfunction, thyroid dysfunction, or other abnormalities on chest x-ray resting EKG etc. At this point does not suggest renal dysfunction, congestive heart failure, other suggest she findings of ongoing emergency medical condition. I think most of her presentation is related to her chronic opiate use and other sedating medications to include her tizanidine Lyrica and trazodone. Her relative inactivity due to these medications and probably because of some of her chronic sciatica likely contributed to her fluid retention and lower extremity edema. Discussed the need to reduce her opiate and other medication use and become more physically active to improve her overall health and reduce much of her symptoms. She does have mild stomatitis which does not appear to be significant verity at this time. She also had freely admits to chewing her tongue as well as teeth grinding at night which may also of contributed to the appearance of her tongue. We will place a consult to case management for Ortho follow-up from her spine surgeon. We also discussed this in detail regarding follow-up as well as return precautions and future for any worsening symptoms and this was discussed now with the patient but in the presence of friends and family. Medical Records I reviewed the patient's medical records. Prior surgery in 2020 for spinal stenosis Lab Data I reviewed the patient's lab results. 07/02/23 18:56 07/02/23 19:35 Radiology Impressions Chest X-Ray 07/02/23 18:39 IMPRESSION: No acute abnormality demonstrated. Laboratory Results WBC 7.0 10^3/uL (4.0-10.0) 07/02/23 18:56 RBC 4.85 10^6/uL (4.1-5.3) 07/02/23 18:56 Hgb 15.0 g/dL (11.5-15.3) 07/02/23 18:56 Hct 45.8 % (37.0-47.0) 07/02/23 18:56 MCV 94.4 fl (81-99) 07/02/23 18:56 MCH 30.9 pg (28.0-34.0) 07/02/23 18:56 MCHC 32.8 g/dL (30.0-36.0) 07/02/23 18:56 RDW 14.2 % (12.1-15.1) 07/02/23 18:56 Plt Count 129 10^3/cmm (130-400) L 07/02/23 18:56 MPV 13.4 fL (7.4-10.4) H 07/02/23 18:56 Neut % (Auto) 34.6 % 07/02/23 18:56 Lymph % (Auto) 51.2 % 07/02/23 18:56 [place] % (Auto) 7.8 % 07/02/23 18:56 Eos % (Auto) 5.4 % 07/02/23 18:56 Baso % (Auto) 0.9 % 07/02/23 18:56 Neut # (Auto) 2.43 10^3/uL (1.8-7.7) 07/02/23 18:56 Lymph # (Auto) 3.6 10^3/uL (0.8-4.8) 07/02/23 18:56 [place]ven # (Auto) 0.6 10^3/uL (0.2-0.9) 07/02/23 18:56 Eos # (Auto) 0.4 10^3/uL (0.0-0.8) 07/02/23 18:56 Baso # (Auto) 0.1 10^3/uL (0.0-0.1) 07/02/23 18:56 Nucleated RBC % (auto) 0 % 07/02/23 18:56 Nucleated RBCs # 0.0 /100WBC 07/02/23 18:56 Sodium 138 mmol/L (136-145) 07/02/23 19:35 Potassium 4.0 mmol/L (3.5-5.1) 07/02/23 19:35 Chloride 101 mmol/L (98-107) 07/02/23 19:35 Carbon Dioxide 30 mmol/L (22-29) H 07/02/23 19:35 Anion Gap 11.0 (5-19) 07/02/23 19:35 BUN 9 mg/dL (6-20) 07/02/23 19:35 Creatinine 0.9 mg/dL (0.5-0.9) 07/02/23 19:35 GFR Calculation 65.2 mL/min (90-130) L 07/02/23 19:35 Glucose 92 mg/dL (65-115) 07/02/23 19:35 Calculated Osmolality 284 mOsm/kg (285-295) L 07/02/23 19:35 Calcium 8.6 mg/dL (8.5-10.5) 07/02/23 19:35 Magnesium 1.9 mg/dL (1.7-2.3) 07/02/23 19:35 Total Bilirubin 0.4 mg/dL (0.15-1.2) 07/02/23 19:35 AST 19 U/L (0-32) 07/02/23 19:35 ALT 24 U/L (0-33) 07/02/23 19:35 Alkaline Phosphatase 75 U/L (35-105) 07/02/23 19:35 Total Protein 6.2 g/dL (6.6-8.7) L 07/02/23 19:35 Albumin 3.6 g/dL (3.5-5.2) 07/02/23 19:35 Globulin 2.6 g/dL (1.3-4.6) 07/02/23 19:35 TSH 0.71 uIU/mL (0.27-4.20) 07/02/23 19:35 Urine Color Yellow (Yellow) 07/02/23 19:05 Urine Appearance Clear (CLEAR) 07/02/23 19:05 Urine pH 5 (5-7) 07/02/23 19:05 Ur Specific [place] 1.015 (1.005-1.030) 07/02/23 19:05 Urine Protein Neg (Negative) 07/02/23 19:05 Urine Glucose (UA) Norm (Normal) 07/02/23 19:05 Urine Ketones Negative (Negative) 07/02/23 19:05 Urine Blood Neg (Negative) 07/02/23 19:05 Urine Nitrate Negative (Negative) 07/02/23 19:05 Urine Bilirubin Neg (Negative) 07/02/23 19:05 Urine Urobilinogen Norm mg/dL (Negative) 07/02/23 19:05 Ur Leukocyte Esterase Negative (Negative) 07/02/23 19:05 EKG Data EKG 1: I personally reviewed and interpreted this EKG as follows: Interpretation: Resting EKG contemporaneously reviewed reveals ventricular rate of 54 bpm consistent with sinus bradycardia. Normal SC interval, QRS duration, corrected QT interval. Normal axis. Low voltage in the precordial leads however no acute ST-T wave changes noted. Computer generated interpretation: Chest X-Ray 07/02/23 18:39 IMPRESSION: No acute abnormality demonstrated. 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, Sciatic neuropathy, Stomatitis Condition: Stable Prescriptions: No Action atorvastatin 40 mg tablet 40 mg PO DAILY albuterol sulfate [ProAir HFA] 90 mcg/actuation HFA aerosol inhaler 2 puff INHALATION Q6H PRN (Reason: sob) acetaminophen [Tylenol Extra Strength] 500 mg tablet 1,000 mg PO TID PRN (Reason: Pain) trazodone 50 mg tablet 50 mg PO .bedtime PRN (Reason: sleep) Qty: 60 4RF Rx Instructions: Take one to two tablets at bedtime as needed for sleep escitalopram oxalate 10 mg tablet 10 mg PO .morning Qty: 30 4RF Rx Instructions: Take one tablet every morning oxycodone 5 mg tablet 5 mg PO TID PRN pregabalin [Lyrica] 300 mg capsule 300 mg PO BID tizanidine 4 mg tablet 4 - 8 mg PO TID PRN (Reason: muscle spasm) diclofenac sodium 75 mg tablet,delayed release (DR/EC) 75 mg PO BID Combivent Respimat 20-100 mcg/actuation mist 1 puff INHALATION DAILY Discharge Orders: Discharge ED (Routine); Ordered 07/02/23 Ordered By: Tommie iHlls Referrals: Yobany Iverson [Primary Care Provider] - Discharge Diet: Usual diet and Low Salt Discharge Activity: Increase activity as tolerated Patient Instructions: Opioid Safety, Pain Management Activity Restrictions/Additional Instructions: We are concerned about your long-term multidrug use that may be contributing to your feeling of being tired and wanting to sleep frequently. We recommend a gradual reduction in your opiate use and in an attempt to reduce it to the lowest level in fact complete reduction of that medication might improve your overall health. We have also placed a case management consult in to get you followed up with the orthopedic surgeon and spine surgeon for any additional treatment and/or therapy that might help your condition. We recommend that you ambulate and get up and move around as that will reduce the amount of lower leg swelling that you have been experiencing. We recommend using a peroxide-based mouthwash in which you swish and then spit out after approximately 20 seconds of swishing. If it anytime you have worsening symptoms you are welcome to return to the emergency department for reevaluation. 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
--- NOTE | 2023-07-02 18:47 | ECG_ITS ---
[facility] Test Date: 2023-07-02 Pat Name: Kailyn Jeffers Department: Room: Gender: Female Night Custodian: : 1970 Requested By: Tommie Hills Order Number: [id number] Susan MD: Geovanna Blanco M.D. Measurements Intervals [place] Rate: 54 P: 63 DC: 175 QRS: 23 QRSD: 93 T: 57 QT: 439 QTc: 418 Interpretive Statements SINUS BRADYCARDIA INDETERMINATE AXIS LOW QRS VOLTAGE IN PRECORDIAL LEADS [QRS DEFLECTION < 1.0 mV IN CHEST LEADS] POSSIBLE ANTERIOR MYOCARDIAL INFARCTION , PROBABLY OLD [30 ms Q WAVE IN V3/V4, OR R < 0.2 mV IN V4] Compared to ECG 04/16/2023 17:26:55 Indeterminate axis now present Low QRS voltage now present Myocardial infarct finding now present Sinus rhythm no longer present Electronically Signed On 07-03-2023 6:42:26 CDT by Geovanna Blanco M.D. [id number]
[2023-07-02 19:09] LABS: Add Urine Microscopic? NO; Charge for UA Resulting for Rev
[2023-07-02 19:10] LABS: Basophils # 0.1 10^3/uL (0.0-0.1); Basophils % 0.9 %; Eosinophils # 0.4 10^3/uL (0.0-0.8); Eosinophils % 5.4 %; Hematocrit 45.8 % (37.0-47.0); Lymphocytes # 3.6 10^3/uL (0.8-4.8); Lymphocytes % 51.2 %; Mean Corpuscular HGB Conc 32.8 g/dL (30.0-36.0); Mean Corpuscular Hemoglobin 30.9 pg (28.0-34.0); Mean Corpuscular Volume 94.4 fl (81-99); Mean Platelet Volume 13.4 fL (7.4-10.4); Monocytes # 0.6 10^3/uL (0.2-0.9); Monocytes % 7.8 %; Neutrophils # 2.43 10^3/uL (1.8-7.7); Neutrophils % 34.6 %; Nucleated Red Blood Cells % 0 %; Platelet Count 129 10^3/cmm (130-400); Red Blood Count 4.85 10^6/uL (4.1-5.3); Red Cell Distribution Width 14.2 % (12.1-15.1)
[2023-07-02 19:18] LABS: Bilirubin Urine Neg (Negative); Blood Urine Neg (Negative); Glucose Urine UA Norm (Normal); Ketones Urine Negative (Negative); Leukocyte Esterase Urine Negative (Negative); Nitrate Urine Negative (Negative); Protein Urine Neg (Negative); Specific Gravity, Urine 1.015 (1.005-1.030); Urine Appearance Clear (CLEAR); Urine Color Yellow (Yellow); Urobilinogen Urine Norm (Negative); pH Urine 5 (5-7)
[2023-07-02 19:49] LABS: Slide Review Slide Review Perform
[2023-07-02 20:21] LABS: Alanine Aminotransferase 24 U/L (0-33); Albumin Level 3.6 g/dL (3.5-5.2); Alkaline Phosphatase 75 U/L (35-105); Aspartate Amino Transferase 19 U/L (0-32); Blood Urea Nitrogen 9 mg/dL (6-20); Calcium 8.6 mg/dL (8.5-10.5); Carbon Dioxide 30 mmol/L (22-29); Chloride 101 mmol/L (98-107); Globulin 2.6 g/dL (1.3-4.6); Glomerular Filtration Rate 65.2 mL/min (90-130); Glucose 92 mg/dL (65-115); Magnesium 1.9 mg/dL (1.7-2.3); Osmolality Calculated 284 mOsm/kg (285-295); Sodium 138 mmol/L (136-145); Thyroid Stimulating Hormone 0.71 uIU/mL (0.27-4.20); Total Bilirubin 0.4 mg/dL (0.15-1.2); Total Protein 6.2 g/dL (6.6-8.7)
--- NOTE | 2023-07-02 20:47 | PC.NURSE ---
Family expresses concern regarding pt's chronic lethargy and pain. Family member states that pt has trouble staying awake during the day as well. Pt is currently drowsy at this time.
[2023-07-02] MEDS: ketorolac 30 mg/mL INJ IM (20:59)
[2023-07-02 21:03] VITALS: BP 112/80; PULSE 56; RESP 16; O2SAT 91
[2023-07-02 21:17] VITALS: BP 112/80; PULSE 56; RESP 16; TEMP 36.8; O2SAT 91
--- NOTE | 2023-07-03 08:40 | DCPLANNER ---
Addendum entered by Faby Avila 07/03/23 11:52: manager in training received the following message from the ortho clinic regarding follow up appointment: attempt made to contact patient - left vm and mailed letter to call our clinic to schedule w/ dr duarte or criss jason Original Note: manager in training had message to schedule a follow up appointment for patient with ortho. manager in training sent patients information to the front office staff at ortho. Patients information will be printed and reviewed. Clinic will call patient with appointment information.
== END 2023-07-02 21:18 | disposition home or self-care (01) ==
PROVIDERS: Emergency Provider Emergency Medicine; PCP Family Medicine
DX: K12.1 Other forms of stomatitis (principal); G57.00 Lesion of sciatic nerve, unspecified lower limb; Z79.891 Long term (current) use of opiate analgesic; F17.210 Nicotine dependence, cigarettes, uncomplicated
CPT/HCPCS: 36415; 71045; 80053; 81003; 83735; 84443; 85025; 93005; 96372; 99285; J1885

== ENCOUNTER → 2023-08-21 14:31 | Outpatient (BNVA) | payer MEDICAID, SELFPAY | PROVIDERS: PCP Family Medicine; Referring Provider Emergency Medicine; Visit Provider Physician Assistant | DX: M48.062 Spinal stenosis, lumbar region with neurogenic claudication (principal); M47.816 Spondylosis without myelopathy or radiculopathy, lumbar region; M47.817 Spondylosis without myelopathy or radiculopathy, lumbosacral region; M46.1 Sacroiliitis, not elsewhere classified; M96.1 Postlaminectomy syndrome, not elsewhere classified | CPT/HCPCS: 72110; 99214 ==

== ENCOUNTER 2023-10-16 07:53 | Outpatient (CLI) | payer MEDICAID, SELFPAY ==
--- NOTE | 2023-10-16 07:58 | MR_ITS ---
WS: [id number] MRI LUMBAR SPINE NONCONTRAST TECHNIQUE: Sagittal T1, T2 and STIR imaging. Axial T1 and T2 imaging. CLINICAL INFORMATION: lumbar pain COMPARISON: None. FINDINGS: Mild lumbar curve. No acute compression. L1-L2: Normal. L2-L3: Mild annular bulging. Mild facet arthropathy. Mild LEFT foraminal narrowing. L3-L4: Mild annular bulging. RIGHT hemilaminectomy. Mild narrowing of the thecal sac progressed beena red to previous. Mild bilateral foraminal narrowing. New RIGHT synovial cyst impinges the RIGHT subar ticular recess and traversing RIGHT L4 nerve root. Mild narrowing of the thecal sac is progressed com pared to previous. L4-L5: Mild annular bulging. Moderate to severe narrowing of the thecal sac with lobulated midline sy novial cyst with compression dorsal thecal sac. Narrowing of the subarticular recess bilaterally. Mod erate to severe LEFT and moderate RIGHT bony foraminal narrowing. Moderate facet arthropathy. L5-S1: Minimal annular bulging. Osteophytic ridging. Moderate facet arthropathy. Spinal canal and for amen are patent. Visualized pelvic bony structures: Normal. Paravertebral soft tissues: Normal. Slightly aneurysmal distal abdominal aorta measuring 2.3 x 2.3 cm AP by transverse IMPRESSION: 1. Moderate to severe narrowing of the thecal sac L4-5 with a new dorsal lobulated synovial cyst wit h impingement on the dorsal thecal sac. Synovial cyst measures 4.1 x 12.1 mm 2. Progressed moderate to severe LEFT and moderate RIGHT bony foraminal narrowing L4-5. 3. RIGHT hemilaminectomy L3-4 with a small synovial cyst is new from previous with impingement on th e RIGHT subarticular recess and RIGHT L4 nerve root. Mild thecal sac narrowing at this level appears progressed 4. Lobulated LEFT paracentral disc protrusion cervical spine on the cavalry scout imaging C6-7 with indentat ion on the cervical cord. This could be further evaluated with cervical spine MRI.
== END 2023-10-16 07:54 | disposition home or self-care (01) ==
LOC: RAD 07:53
PROVIDERS: PCP Family Medicine; Visit Provider Physician Assistant
DX: M48.062 Spinal stenosis, lumbar region with neurogenic claudication (principal)
CPT/HCPCS: 72148

== ENCOUNTER → 2023-11-20 07:50 | Outpatient (BNVA) | payer MEDICAID, SELFPAY | PROVIDERS: PCP Family Medicine; Visit Provider Orthopaedic Surgery | DX: M96.1 Postlaminectomy syndrome, not elsewhere classified; M48.061 Spinal stenosis, lumbar region without neurogenic claudication; M54.16 Radiculopathy, lumbar region | CPT/HCPCS: 36415; 80053; 81001; 83036; 85025; 99214 ==

== ENCOUNTER → 2023-12-05 10:03 | Outpatient (BNVA) | payer MEDICAID, SELFPAY | PROVIDERS: PCP Family Medicine; Visit Provider Family Medicine | DX: Z01.818 Encounter for other preprocedural examination (principal) | CPT/HCPCS: 81003 ==

== ENCOUNTER → 2024-01-22 14:38 | Outpatient (BNVA) | payer MEDICAID, SELFPAY | PROVIDERS: PCP Family Medicine; Visit Provider Family Medicine | DX: Z01.818 Encounter for other preprocedural examination (principal) | CPT/HCPCS: 80053; 81003; 85025 ==

== ENCOUNTER → 2024-01-23 11:06 | Outpatient (BNVA) | payer MEDICAID, SELFPAY | PROVIDERS: PCP Family Medicine; Visit Provider Family Medicine | DX: Z01.818 Encounter for other preprocedural examination (principal) | CPT/HCPCS: 87077; 87086; 87184 ==

== ENCOUNTER 2024-01-28 16:30 | Inpatient (IN) | payer MEDICAID, SELFPAY ==
[2024-01-27 13:57] LABS: Add Urine Culture? No; Bacteria Urine TRACE /hpf; Bilirubin Urine Neg (Negative); Blood Urine Neg (Negative); Glucose Urine UA Norm (Normal); Ketones Urine Negative (Negative); Leukocyte Esterase Urine Negative (Negative); Nitrate Urine Negative (Negative); Protein Urine Neg (Negative); Specific Gravity, Urine 1.005 (1.005-1.030); Urine Appearance Clear (CLEAR); Urine Color Straw (Yellow); Urobilinogen Urine Norm (Negative); WBC Urine 0-4 /hpf (0-5); pH Urine 7 (5-7)
[2024-01-28] VITALS (19 sets, daily range): BP systolic 76–153; BP diastolic 46–128; PULSE 71–115; RESP 10–18; TEMP 36.2–37; O2SAT 90–98; BMI 36.4
--- NOTE | 2024-01-28 | XR_ITS ---
WS: [id number] Lumbar spine, C-arm fluoroscopy views, 01/28/2024 Clinical Data: OR PICS Comparison: Lumbar spine, 08/21/2023 Findings: Dr. Pereira performed a posterior lumbosacral fusion. Impression: Posterior lumbosacral fusion.
--- NOTE | 2024-01-28 10:42 | ANES.PREANE2 ---
Pre-Anesthetic Assessment Height/Weight: Height 1.68 m Preop Diagnosis: Lumbar stenosis with neurogenic claudication Operation Date: 01/28/24 11:50 Proposed Procedures p Spinal Fusion PSF(Not Applicable) - Eusebio Pereira DO s Lumbar Spine Decompression Lumbar Decompression(Not Applicable) - DO lucila Wilkins Sacroiliac Joint Fusion SI Joint Fusion/ open(Not Applicable) - Eusebio Pereira DO Familial anesthetic complications: None Was Beta Grace taken within 24 hours: N/A Was Clonidine taken within 24 hours: N/A Last intake: > 8hrs Social Tobacco (encouraged smoking cessation) and No alcohol Exam alert, oriented x 3, clear to auscultation bilaterally and regular rate & rhythm Airway Mallampati: Class III Dentition: full Pulmonary Chronic Obstructive Pulmonary Disease CV/HEM hypotension GI Gastroesophageal Reflux Disease Anesthetic Plan ASA status: 3 Anesthesia: General Other: A-line Risk of > 500 ml blood loss (7ml/kg in children): Yes, adequate IV access and fluids planned Medications/Allergies Home Medications Medication Instructions Recorded Confirmed Last Taken Type acetaminophen 500 mg tablet 1,000 mg PO TID PRN Pain 12/03/19 01/28/24 01/26/24 History (Tylenol Extra Strength) albuterol sulfate 90 mcg/actuation 2 puff inhalation Q6H PRN sob 12/03/19 01/28/24 01/28/24 History aerosol inhaler (ProAir HFA) diclofenac sodium 75 mg 75 mg PO BID pain 04/24/22 01/28/24 01/27/24 History tablet,delayed release pregabalin 300 mg capsule (Lyrica) 300 mg PO BID pain 04/24/22 01/28/24 01/28/24 History tizanidine 4 mg tablet 4 - 8 mg PO TID PRN muscle spasm 04/24/22 01/28/24 01/28/24 History trazodone 50 mg tablet 50 mg PO .bedtime PRN sleep #60 04/16/23 01/28/24 01/27/24 Rx tabs oxycodone 5 mg tablet 7.5 mg PO TID PRN Pain 12/05/23 01/28/24 01/28/24 History budesonide-formoterol HFA 160 1 puff inhalation DAILY 01/22/24 01/28/24 01/27/24 History mcg-4.5 mcg/actuation aerosol inhaler (Symbicort) sulfamethoxazole 800 1 tab PO BID 5 days #10 tabs 01/24/24 01/28/24 01/28/24 Rx mg-trimethoprim 160 mg tablet (Bactrim DS) cetirizine 10 mg tablet 10 mg PO BEDTIME 01/25/24 01/28/24 01/27/24 History famotidine 20 mg tablet 20 mg PO BID 01/25/24 01/28/24 01/28/24 History levocetirizine 5 mg tablet 5 mg PO DAILY 01/25/24 01/28/24 01/28/24 History omeprazole 20 mg capsule,delayed 20 mg PO DAILY 01/25/24 01/28/24 01/27/24 History release Allergies Allergy/AdvReac Type Severity Reaction Status Date / Time bacitracin Allergy BLISTERS Verified 01/28/24 10:20 [From Neosporin ([id number])] neomycin Allergy BLISTERS Verified 01/28/24 10:20 [From Neosporin ([id number])] polymyxin B Allergy BLISTERS Verified 01/28/24 10:20 [From Neosporin ([id number])] [facility] Anesthesia Medical History Cigarette smoker motivated to quit Psychiatric care Heavy cigarette smoker Alcohol use disorder, moderate, in sustained remission Major depressive disorder, recurrent severe without psychotic features Chronic post-traumatic stress disorder Generalized joint pain Lumbar spondylosis Spinal stenosis of lumbar region with radiculopathy Smoker Surgical History S/P tonsillectomy H/O spinal fusion [address] [facility] C5-C6 DISCECTOMY/ FUSION/ FIXATION Status post carpal tunnel release of both wrists Status post delivery S/P excision of ganglion cyst S/P correction of deviated nasal septum Hx of foot surgery (~2017) RIGHT FOOT SURGERY POST WOUND NOT HEALING OSTEOMYLITIS Family History Father Cancer STOMACH CANCER Mother Dementia Other Heart disease Social History Smoking and tobacco/nicotine status: current every day tobacco/nicotine user cigarettes Years cigarettes smoked: 40 [ Other cigarette details: 1 PPD] Quit status (tobacco/nicotine): considering quitting Second hand smoke exposure: Yes Alcohol intake: current Alcohol intake frequency: holidays/special occasions only Substance/Drug Use: current Substance/Drug use frequency: few times a month Other substance/drug use details: smokes about once a week Adopted: No Caregiver/support person: No Lives independently: Yes Household members: none Housing: Apartment Marital status: Marital status details: since 2009 Number of children: 3 Number of grandchildren: 6 Highest education level completed: GED or Equivalent service: No Current occupational status: disabled Current occupational exposures/hazards: No Pets and animals: No Leisure activites: other Leisure activities details: TV and plant weinstein Sexually active: No Do you think of yourself as: Straight/Heterosexual Current gender identity: Female Celeste/Yazdanism: Judaism Special celeste needs: No Agree to transfusion: Yes Female Reproductive History Para: 3 Spontaneous abortions: No Data Anesthesia Urine 01/27/24 Range/Units 13:27 Urine Color Straw (Yellow) Urine Appearance Clear (CLEAR) Urine pH 7 (5-7) Ur Specific [place] 1.005 (1.005-1.030) Urine Protein Neg (Negative) Urine Glucose (UA) Norm (Normal) Urine Ketones Negative (Negative) Urine Nitrate Negative (Negative) Urine Bilirubin Neg (Negative) Ur Leukocyte Esterase Negative (Negative) Urine RBC None (0-2) /hpf Urine WBC 0-4 H (0-5) /hpf Cardiac Studies: No Data to Display
--- NOTE | 2024-01-28 10:44 | W.PM.OPSUD ---
Surgery/Procedure H&P Update DATE OF PROCEDURE: January 28, 2024 DATE H&P PERFORMED: 01/22/24 H&P UPDATE INFORMATION: I have reviewed H&P completed within last 30 days, I have examined patient prior to procedure and No changes to prior documentation PREOP DIAGNOSIS: Lumbar stenosis with neurogenic claudication PLANNED PROCEDURE: Operation Date: 01/28/24 11:50 Proposed Procedures p Spinal Fusion PSF(Not Applicable) - DO lucila Wilkins Lumbar Spine Decompression Lumbar Decompression(Not Applicable) - DO lucila Wilkins Sacroiliac Joint Fusion SI Joint Fusion/ open(Not Applicable) - Eusebio Pereira DO
[2024-01-28] MEDS: sodium chloride 0.9% 1,000 ML 30 ML IV (10:48)
[2024-01-28] MEDS: ceFAZolin 2,000 MG in sodium chloride 0.9% (plus) 50 ML 100 MG IV ×2 (11:24→17:59)
[2024-01-28] MEDS: lidocaine-epi 1% 20 mL INJ INJECTION (13:00)
[2024-01-28] MEDS: heparin, porcine 1,000 unit/mL INJ 10 mL 6000 UNIT IRRIGATION (13:00)
[2024-01-28] MEDS: vancomycin 1,000 MG SDV 1000 MG XX (13:00)
--- NOTE | 2024-01-28 15:42 | PM.OP ---
Operative Report Date of procedure: January 28, 2024 Pre-op diagnosis: Lumbar stenosis with neurogenic claudication Post-op diagnosis: same Procedure done: 1. Posterior fusion L3-pelvis 2.? Instrumentation L3-S1 3.? Lumbopelvic instrumentation 4. open right Sacral iliac fusion 5. open left sacral iliac fusion 6. L3/4 laminectomy with partial facetectomy 7. L4/5 laminectomy with partial facetectomy 8. use of computer navigation / stereotactic spine 9. use of autograft from same incision 10. allograft 11. Bone marrow aspirate from right iliac crest 12. Revision laminctomy and partial facetectomy L3/4 and L4/5 Surgeon: Eusebio Pereira DO Estimated blood loss (mL): 500 Procedure: 1. Posterior fusion L3-pelvis 2.? Instrumentation L3-S1 3.? Lumbopelvic instrumentation 4. open right Sacral iliac fusion 5. open left sacral iliac fusion 6. L3/4 laminectomy with partial facetectomy 7. L4/5 laminectomy with partial facetectomy 8. use of computer navigation / stereotactic spine 9. use of autograft from same incision 10. allograft 11. Bone marrow aspirate from right iliac crest 12. Revision laminctomy and partial facetectomy L3/4 and L4/5 Patient is brought to the operative suite.? After undergoing anesthesia, the patient had neuro monitoring attached.? Patient was then placed in the prone position on the Jr table.? All areas of impingement were well-padded.? Patient was then prepped and draped in the normal sterile fashion.? Skin incision was then made over the L3 to the sacrum.? Subperiosteal dissection was made out to the transverse processes of L3 bilaterally,?L4 bilaterally L5 bilaterally and sacral ala bilaterally.? The [employer] bone marrow aspirate kit was used to aspirate bone marrow aspirate.? This was done by using the sharp probe to open up the bone.? Aspiration was performed and then the blunt probe was then used to dissect down to through the bone tunnel.? An aspirating well drawn back a millimeter approximately 20 cc of bone marrow aspirate was used.? Admixed with the allograft and autograft bone that will be used. Next tension was brought to placing the fiducial for the computer navigation.? 2 pins were placed into the right iliac crest.? The fiducial was attached.? The C-arm was brought in and information from the C arm was then linked to the computer used for placing the screws.? Next attention was brought to placing the pedicle screws.? This was done by using the gearshift probe linked to computer navigation.? The probe was used to identify the pedicle.? Then the pedicle feeler was used followed by placement of screw length to the computer navigation.? This was done at?L3 bilaterally L4 bilaterally, L5 bilaterally and S1 bilaterally. Next attension was brought to placing the iliac screws.? This was done using the sacral ala iliac technique.? The gearshift probe linked to computer navigation was then placed through the sacral ala into the sacroiliac joint into the iliac crest.? Next the pedicle feeler was used followed by the computer navigated tap.? And then the screw was passed a 80 mm screw was placed on the right side and a 80 mm screw was placed on the left side.? Both the screws were 9.5 mm in diameter. Next attension was brought to performing the open and sacral iliac fusion.? This was done by again using the gearshift probe linked to computer navigation.? Followed by pedicle feeler followed by placing a wire and then the drill drilled over the wire and then bone graft was packed into the sacroiliac joint and into the drill hole.? And the sacroiliac screw was then placed.? This technique was done on both the right and left side. Next attention was brought to performing the laminectomy of L3.? This was done using the high-speed bur Kerrisons and curettes.? Once the lamina was removed and then attention was brought to performing a partial facetectomy on the contralateral side.? This was done again using the high-speed bur curettes and Kerrisons.? The ligamentum flavum was taken down bilaterally from L3 to L4.? Attention was then brought to the facet on the ipsilateral side.? The facet was taken down.? The L4 nerve was decompressed as it passed around the L4 pedicle.? The L3 nerve was identified as it traversed through the L3/4 foramen.? The L4 nerve was traced around the L4 pedicles bilateral.? .? There was found to be in good repair. This level had significant scar tissue which was taken down off of the facet to work around the scar tissue. Next attention was brought to performing the laminectomy ofL4.? This was done using the high-speed bur Kerrisons and curettes.? Once the lamina was removed and then attention was brought to performing a partial facetectomy on the contralateral side.? This was done again using the high-speed bur curettes and Kerrisons.? The ligamentum flavum was taken down bilaterally from L4 to L5.? Attention was then brought to the facet on the ipsilateral side.? The facet was taken down.? The L5 nerve was decompressed as it passed around the L5 pedicle.? The L4 nerve was traced out the foramen felt to be adequately decompressed. Dura was in good repair. Again the scar tissue was marked around using curved curette and Kerrison rongeurs. Attention was then brought to attaching the rods to the screws placed in the L3 bilaterally, L4 bilaterally, L5 bilaterally and S1 bilaterally.? This was then attached to the sacroiliac screw providing the lumbopelvic fixation.? Caps were torqued into position. Locking the construct in place. Wound was copiously irrigated and then attention was brought to decorticating the facets and transverse processes laterally.? Bone that was taken down from the lamina was used along with osteoamp fibers and sponges were packed into the lateral gutters along the facet joints.? This was done bilaterally. Wound was then closed in a layered fashion starting with the thoracolumbar fascia.? 0-vicryl was used the sub cutaneous tissue was closed with 2-0 vicryl and skin with 4-0 monocryl.? Glue was then used to seal the skin and a steril dressing was applied.? Patient was then placed in the supine position. The endotracheal tube was removed and patient was transferred to the PACU in stable condition.
[2024-01-28] MEDS: fentaNYL 50 mcg/mL INJ 2mL IVP (16:16)
[2024-01-28] MEDS: HYDROmorphone 1 mg/mL INJ 1 mL 0.5 MG IVP (16:30)
--- NOTE | 2024-01-28 16:46 | SUR.PHASEI ---
180ml removed from hemovac drain
--- NOTE | 2024-01-28 17:00 | ANE.PACU2 ---
Inpatient post-anesthesia follow up: Airway intact: Yes Vital signs: Temperature 97.2 F Pulse Rate 94 Respiratory Rate 10 Blood Pressure 99/66 Pulse Oximetry 93 Oxygen Delivery Me thod Nasal Cannula Oxygen Flow Rate 2 Fraction of Inspir ed Oxygen Hydration adequate: Yes Nausea and vomiting: No Pain level: 1 Mental status: Baseline
[2024-01-28] MEDS: lactated ringers 1,000 ML 90 ML IV (17:27)
[2024-01-28] MEDS: oxyCODONE-APAP 10-325 mg Tablet PO (17:31)
[2024-01-28] MEDS: ketorolac 30 mg/mL INJ IVP (17:31)
[2024-01-28] MEDS: famotidine 20 mg Tablet PO (17:32)
[2024-01-28] MEDS: pregabalin 150 mg Capsule 300 MG PO (17:32)
[2024-01-28] MEDS: docusate sodium 100 mg Capsule PO (17:32)
[2024-01-28] MEDS: sulfamethoxazole-trimeth DS 160-800 mg Tablet 1 TAB PO (17:32)
[2024-01-28] MEDS: albuterol 2.5 mg/3 mL Neb INHALATION (20:09)
[2024-01-28] MEDS: budesonide 0.5 mg/2 mL Neb INHALATION (20:09)
[2024-01-28] MEDS: cetirizine 10 mg Tablet PO (21:43)
[2024-01-29] VITALS (11 sets, daily range): BP systolic 81–107; BP diastolic 61–70; PULSE 66–85; RESP 16–20; TEMP 36.5–36.6; O2SAT 90–94
[2024-01-29] MEDS: oxyCODONE-APAP 10-325 mg Tablet PO ×3 (02:46→15:19)
[2024-01-29] MEDS: ketorolac 30 mg/mL INJ IVP (02:46)
[2024-01-29] MEDS: ceFAZolin 2,000 MG in sodium chloride 0.9% (plus) 50 ML 100 MG IV ×2 (02:50→11:15)
[2024-01-29] MEDS: lactated ringers 1,000 ML 90 ML IV (03:42)
--- NOTE | 2024-01-29 07:36 | PM.PN ---
Subjective Subjective: Patient asleep when I walked in the room. Patient stated that she was in a lot of pain. Has not been out of bed yet. Vitals/I&O/Wt Last Vital Signs Temp 98.6 F 01/28/24 19:32 Pulse 74 01/29/24 04:06 Resp 18 01/29/24 04:06 BP 107/70 01/29/24 04:06 Pulse Ox 90 01/29/24 04:06 O2 Del Method Room Air 01/28/24 20:11 O2 Flow Rate 2 01/28/24 20:00 01/28/24 01/29/24 01/29/24 22:59 06:59 14:59 Intake Total 2221.5 / 2271.5 1092.5 / 3364.0 Output Total 775 / 775 1249 / 2024 Balance 1446.5 / 1496.5 -157.5 / 1339.0 Weight last 48 hrs Weight 233 lb 7 oz Weight 226 lb Weight 226 lb Physical Exam Narrative: Was in bed sleeping when I walked in stated that she is in a lot of pain. At this point is to get strength in her legs drain had about 300 out of it we will leave the drain in at this point. Will check with her later this afternoon. Urinary Catheter Management: Silva: Cath Placed During This Visit: yes, but has since been removed by the nurse Reason for Continuing Indwelling Catheter: Decision to DC Catheter Urinary Catheter Date of Insertion: 01/28/24 Urinary Catheter Time of Insertion: 11:50 Date Urinary Catheter Removed: 01/29/24 Time Urinary Catheter Discontinued: 05:00 A&P Assessment and plan (1) Status post lumbar laminectomy: Patient is status post lumbar fusion. Will get up with physical therapy and reevaluate. Attestations Medical Necessity Statement*: Pain control Coding Level of Care Code Acute Code for Chg Fwd Diagnoses Status post lumbar laminectomy Z98.890
[2024-01-29] MEDS: budesonide 0.5 mg/2 mL Neb INHALATION (07:52)
[2024-01-29] MEDS: albuterol 2.5 mg/3 mL Neb INHALATION (07:52)
[2024-01-29] MEDS: pantoprazole DR 40 mg Tablet PO (08:12)
[2024-01-29] MEDS: docusate sodium 100 mg Capsule PO (08:12)
[2024-01-29] MEDS: sulfamethoxazole-trimeth DS 160-800 mg Tablet 1 TAB PO (08:12)
[2024-01-29] MEDS: famotidine 20 mg Tablet PO (08:12)
[2024-01-29] MEDS: pregabalin 150 mg Capsule 300 MG PO (08:13)
[2024-01-29 08:17] LABS: Hematocrit 36.7 % (36-47)
--- NOTE | 2024-01-29 10:08 | PC.CHAP ---
Pastoral Care Encounter/Spiritual Assessment Type of Contact [] Declined manager support services visit [] Patient/Family/Request visit [] Outpatient visit [] Follow-up visit [] Physician referral [] Code/Alert [x] Routine visit [] Staff referral [] Actively dying [] Patient sleeping [x] Family support [] [] Out of room [] Palliative care [] [] Receiving care in room [] Pre-surgical visit [] Trauma [] Long length of stay [] ICU visit [] Other: Relational/Emotional Strength [x] Patient feels connected with others/family/visitors/staff [] Distress [] Loneliness/isolation [] Abandonment Spirituality of Patient [x] Person of [place] [] Attends Religious of their [place] [x] Believes in Prayer [] Reads Bible or Yarsanism materials [] There are Spiritual issues to be addressed [employer] Interventions [x] Prayer [x] Active listening [x] Non-anxious presence [x] Spiritual/emotional support [] Crisis/trauma care [] Spiritual counseling [] Bereavement support [] Provided bereavement packet [] Provided Bible/devotional materials [] Provided toy/stuffed animal, coloring book to patient or family member [] Provided Communion [] Anointing/[place] [] Salvation [x] Completed spiritual assessment [] Other: Impact on Illness or Injury [] Angry [] Fearful [] Anxious [] Often cries [] Exhaustion [] Unable to work [] Unable to attend sabianism [] Unable to walk/stand [] Unable to read [] Unable to drive [] Unable to eat/drink [] Unable to sleep [] Unable to be with family [] Patient intubated [] Other: Summary Time spent with patient 5 min
--- NOTE | 2024-01-29 14:04 | P.DS_ITS ---
Discharge Providers Date of Admission: 01/28/24 16:30 Date of Discharge: January 29, 2024 Attending Provider at Admission: Eusebio Pereira DO Attending Provider at Discharge: Eusebio Pereira DO Primary Care Provider: Yobany Iverson Diagnoses at Discharge Discharge Diagnosis (1) Status post lumbar laminectomy: Status: Acute Reason for Visit Reason for Visit: M48.061, Z01.818 Physical Exam Urinary Catheter Management: Silva: Cath Placed During This Visit: yes, but has since been removed by the nurse Reason for Continuing Indwelling Catheter: Decision to DC Catheter Urinary Catheter Date of Insertion: 01/28/24 Urinary Catheter Time of Insertion: 11:50 Date Urinary Catheter Removed: 01/29/24 Time Urinary Catheter Discontinued: 05:00 Discharge Data Studies Completed and Pending Completed Studies During Hospitalization Category Date Time Status XR lumbar spine 2-3V* [id number] Routine Exams 01/28/24 00:00 Completed Laboratory Results Hgb 12.10 g/dL (11.27-16.99) 01/29/24 08:05 Hct 36.7 % (36-47) 01/29/24 08:05 Urine Color Straw (Yellow) 01/27/24 13:27 Urine Appearance Clear (CLEAR) 01/27/24 13:27 Urine pH 7 (5-7) 01/27/24 13:27 Ur Specific [place] 1.005 (1.005-1.030) 01/27/24 13:27 Urine Protein Neg (Negative) 01/27/24 13:27 Urine Glucose (UA) Norm (Normal) 01/27/24 13:27 Urine Ketones Negative (Negative) 01/27/24 13:27 Urine Blood Neg (Negative) 01/27/24 13:27 Urine Nitrate Negative (Negative) 01/27/24 13:27 Urine Bilirubin Neg (Negative) 01/27/24 13:27 Urine Urobilinogen Norm mg/dL (Negative) 01/27/24 13:27 Ur Leukocyte Esterase Negative (Negative) 01/27/24 13:27 Urine RBC None /hpf (0-2) 01/27/24 13:27 Urine WBC 0-4 /hpf (0-5) H 01/27/24 13:27 Ur Squamous Epith Cells 5-10 /hpf (0-5) H 01/27/24 13:27 Amorphous Sediment Not Reportable 01/27/24 13:27 Urine Bacteria Trace /hpf (NONE) 01/27/24 13:27 Vitals Last Vital Signs Temp 97.7 F 01/29/24 11:58 Pulse 80 01/29/24 11:58 Resp 18 01/29/24 11:58 BP 86/64 01/29/24 12:36 Pulse Ox 90 01/29/24 11:58 O2 Del Method Room Air 01/29/24 11:58 O2 Flow Rate 2 01/28/24 20:00 Discharge Plan Discharge Patient Disposition: Home Condition: Stable Prescriptions: New oxycodone-acetaminophen 10-325 mg tablet 1 tab PO Q4H PRN (Reason: pain) 7 Days Qty: 40 0RF Continued albuterol sulfate [ProAir HFA] 90 mcg/actuation HFA aerosol inhaler 2 puff INHALATION Q6H PRN (Reason: sob) acetaminophen [Tylenol Extra Strength] 500 mg tablet 1,000 mg PO TID PRN (Reason: Pain) trazodone 50 mg tablet 50 mg PO .bedtime PRN (Reason: sleep) Qty: 60 4RF Rx Instructions: Take one to two tablets at bedtime as needed for sleep budesonide-formoterol [Symbicort] 160-4.5 mcg/actuation HFA aerosol inhaler 1 puff inhalation DAILY pregabalin [Lyrica] 300 mg capsule 300 mg PO BID tizanidine 4 mg tablet 4 - 8 mg PO TID PRN (Reason: muscle spasm) diclofenac sodium 75 mg tablet,delayed release (DR/EC) 75 mg PO BID sulfamethoxazole-trimethoprim [Bactrim DS] 800-160 mg tablet 1 tab PO BID 5 Days Qty: 10 0RF cetirizine 10 mg tablet 10 mg PO BEDTIME famotidine 20 mg tablet 20 mg PO BID omeprazole 20 mg capsule,delayed release(DR/EC) 20 mg PO DAILY levocetirizine 5 mg tablet 5 mg PO DAILY Discontinued oxycodone 5 mg tablet 7.5 mg PO TID PRN (Reason: Pain) Discharge Orders: Discharge Order (Routine); Ordered 01/29/24 Ordered By: Eusebio Pereira Referrals: Eusebio Pereira, DO [Physician] - Discharge Diet: Advance as tolerated Discharge Activity: Limit activity as instructed Patient Instructions: Opioid Safety Activity Restrictions/Additional Instructions: [facility] The following is a list of instructions, from your provider, to follow upon your discharge to ensure you have the optimal recovery from your recent injury orsurgery. Follow-up care is a guidry part of your treatment and safety. Be sure to make and go to all appointments, and call your doctor if you are having problems. If you do not already have a follow-up appointment made, call Dr. Pereira office in the next 1-3 days to make follow up appointment for 1 weeks at [phone]. It is also a good idea to know your test results and keep a list of the medicines you take. Medications will be prescribed for you at your provider's discretion. These medications are to be used as instructed; if they are taken more often that prescribed they will not be refilled early and in most cases will not be refilled at all. > When a refill is needed,you should contact jacobo mendez 2-3 business days before your prescription runs out. Medications will NOT be refilled by environmental sampling technician providers after hours! > Many pain medications contain Tylenol (Acetaminophen). Do not consume more than 4,000 mg of Tylenol per day in total with any combination ofmedications. > Pain medications can cause constipation. Please use an over the counter stool softener as directed, while taking pain medications. Consulty our local pharmacist with questions or recommendations on stool softeners. If constipation persists, contact our office or your primary care provider. > While under our care,you are not to receive pain medications or other controlled substances from any other provider unless our office is notified and approves. Any attempts to do so will result in refusal to prescribe any further pain medications and possible dismissal from our practice. ? Your wound and/or dressing should remain clean and dry for 7 days after surgery. On postoperative day 7. Will change dressing in clinic. It is okay to shower and get the incision wet. Pad dry afterwards. No further dressing should be required from that point on. Do not put any creams or ointments on theincision > It is normal for there to be a small amount of discharge (bloody or blood tinged) present from a surgical wound for the first 1-3days. > The wound should be examined twice a day for signs of infection. Mild redness or bruising is to be expected but indications that an infection maybe starting would include; An increase in redness, swelling, or discharge, a foul odor present around the incision, and/or a fever greater than 101 ?F ? Showering is permitted, however we ask that you do not take a bath, sit in a whirlpool / Jacuzzi, or go swimming for 1 month. For only the first 2 days after surgery, lt wilt be necessary for you to cover your wound/dressing with plastic and tape to keep it dry. ? Walking is essential for the healing process after surgery. We would like you to slowly advance your walking. This should be done on relatively flat clear ground (inside or out) or can be done on a treadmill. Remember this goal does not have to happen all at once, slowly increase your distance and duration. This can be broken into more more than one walk per day as tolerated. Patients who walk as directed after surgery rarely require Physical Therapy. In the unlikely event this issue arises your provider will direct hospital staff to make the appropriate arrangements. ? No lifting over 5 pounds {a gallon of milk) or bending/twisting until further notice. Each of these activities places an unnecessary amount of stress onto the body and can impede the delicate healing process. > Instead of bending at the waist, keep your back straight and bend at the knees. > Instead of twisting your torso, keep your back straight and turn your entire body with your feet. ? You may sleep in any position which makes you comfortable. Many patients find comfort sleeping in a reclining chair. It is not abnormal to have difficulty sleeping for the first several weeks following your surgery. We recommend trying Benadry! or Tylenol PM as directed to help with your sleeping difficulties. Both medications are over the counter and available withoutprescription. ? NO SMOKING!!! Smoking dramatically increases the probability of developing postoperative wound infections. ? Common complaints after lumbar and/or thoracic spine surgery include, but are not limited to: numbness and/or tingling in the legs, pain around the incision and surrounding tissues, muscle spasms, or stiffness of the middle to low back. Contact our office if these symptoms persist or if an acute change occurs. ? No driving for the first 3-5days, and not while taking narcotics [] until seen at your follow-up appointment and cleared. There are no restrictions for riding on short trips, however if you take a longer trip, arrangements should be made to make regular stops to get out of the vehicle and stretch . ? Swelling is an unfortunate event that will take place with any surgery and is the primary source of your postoperative discomfort. While walking and regular approved activities helps control inflammation, there are additional steps you can take to minimizeswelling. > Place ice over the surgical site and surrounding tissue for twenty minutes, followed by applying a low/medium heat (heating pad) for an additional twenty minutes every 1-2 hours as needed for painrelief. > You may use of over the counter anti-inflammatory medications (Ibuprofen, Motrin, Aleve, Advil, etc) as directed on the package label. These types of medicines wm significantly reduce the amount of discomfort you experience after surgery from swelling. It should be noted that if you have and allergy to any of these medications, or a history of ulcers or kidney disease you should consult you primary care provider prior to starting these medications. Discharge Attestations Time Spent in Discharge Care*: less than 30 min Quality Metrics Clinical Quality Measures [ No reported AMI, CVA or VTE this stay] Coding Level of Care Code Acute Code for Chg Fwd Diagnoses Status post lumbar laminectomy Z98.890
--- NOTE | 2024-01-29 14:33 | PC.NURSE ---
hemovac discontinued per doctor's order, patient tolerated well.
--- NOTE | 2024-01-29 15:40 | PC.NURSE ---
Patient's blood pressure has remained low this shift, Dr. Pereira is aware. patient states her blood pressure stays low all the time and it's normal Patient is asymptomatic at this time
== END 2024-01-29 16:39 | disposition home or self-care (01) | DRG 454 ==
LOC: MEDSURG 16:33
PROVIDERS: Admitting Provider Orthopaedic Surgery; PCP Family Medicine; Visit Provider Orthopaedic Surgery
PROC: 0SG107J Fusion of 2 or more Lumbar Vertebral Joints with Autologous Tissue Substitute, Posterior Approach, Anterior Column, Open Approach (ICD-10-PCS; principal; 2024-01-28 11:30)
PROC: 0SG107J Fusion of 2 or more Lumbar Vertebral Joints with Autologous Tissue Substitute, Posterior Approach, Anterior Column, Open Approach (ICD-10-PCS; CPT 63005; 2024-01-28 11:30)
PROC: 0SG107J Fusion of 2 or more Lumbar Vertebral Joints with Autologous Tissue Substitute, Posterior Approach, Anterior Column, Open Approach (ICD-10-PCS; CPT 27280; 2024-01-28 11:30)
DX: M47.26 Other spondylosis with radiculopathy, lumbar region (principal); F33.9 Major depressive disorder, recurrent, unspecified; M48.061 Spinal stenosis, lumbar region without neurogenic claudication; F17.210 Nicotine dependence, cigarettes, uncomplicated; J44.9 Chronic obstructive pulmonary disease, unspecified; K21.9 Gastro-esophageal reflux disease without esophagitis; F10.11 Alcohol abuse, in remission; F43.12 Post-traumatic stress disorder, chronic
CPT/HCPCS: 36415; 51702; 72100; 76000; 81001; 85014; 85018; 94640; 97116; 97161; 97530; C1713; C1762; J0131; J0690; J1100; J1170; J1644; J1885; J2371; J2405; J2704; J3010; J3370; J3490; J7030; J7120; J7613; J7626

== ENCOUNTER → 2024-02-12 11:04 | Outpatient (BNVA) | payer MEDICAID, SELFPAY | PROVIDERS: PCP Family Medicine; Visit Provider Orthopaedic Surgery | DX: Z98.890 Other specified postprocedural states (principal) | CPT/HCPCS: 99024 ==

== ENCOUNTER → 2024-02-26 10:56 | Outpatient (BNVA) | payer MEDICAID, SELFPAY | PROVIDERS: PCP Family Medicine; Visit Provider Orthopaedic Surgery | DX: Z98.1 Arthrodesis status (principal) | CPT/HCPCS: 72100; 99024 ==

== ENCOUNTER → 2024-03-13 11:16 | Outpatient (BNVA) | payer MEDICAID, SELFPAY | PROVIDERS: PCP Family Medicine; Visit Provider Orthopaedic Surgery | DX: Z98.1 Arthrodesis status (principal); M25.552 Pain in left hip | CPT/HCPCS: 72100; 73502; 99024 ==

== ENCOUNTER → 2024-10-23 13:28 | Outpatient (BNVA) | payer MEDICAID, SELFPAY | PROVIDERS: PCP Family Medicine; Visit Provider Orthopaedic Surgery | DX: Z98.1 Arthrodesis status (principal); Z98.890 Other specified postprocedural states; M48.062 Spinal stenosis, lumbar region with neurogenic claudication; M47.816 Spondylosis without myelopathy or radiculopathy, lumbar region; G57.00 Lesion of sciatic nerve, unspecified lower limb; M25.559 Pain in unspecified hip | CPT/HCPCS: 72100; 73523; 99214 ==

== ENCOUNTER → 2024-11-19 09:12 | Outpatient (BNVA) | payer MEDICAID, SELFPAY | PROVIDERS: PCP Family Medicine; Visit Provider Physician Assistant | DX: M25.551 Pain in right hip (principal); M16.0 Bilateral primary osteoarthritis of hip; M54.59 Other low back pain | CPT/HCPCS: 73502; 99213 ==

== ENCOUNTER 2024-11-27 15:47 | Outpatient (CLI) | payer MEDICAID, SELFPAY ==
--- NOTE | 2024-11-27 15:45 | CT_ITS ---
WS: [id number] CT LUMBAR SPINE, noncontrast. HISTORY: back pain TECHNIQUE: Contiguous 2.0 mm axial imaging are performed. Sagittal and coronal reformats are submitte d and reviewed. All CT scans at [facility] use at least one of these dose optimization techni ques: automated exposure control; mA and/or kV adjustment per patient size (includes targeted exams w here dose is matched to clinical indication); or iterative reconstruction. IV contrast: None DLP: 808.37 mGy.cm COMPARISON: Radiograph 10/23/2024 Status post posterior lumbosacral fusion from L3-S2. 3 mm retrolisthesis of L3 and L4. No fractures. Circumferential significant lucency surrounding the pedicle screws at L3. Lucency extends through the superior endplate of the LEFT L3 pedicle screw. Small bone gap superior endplate of L3 on the RIGHT. Margins are well corticated but this does appear to be a fracture site. L1-2: Normal. L2-3: Mild asymmetric disc bulging to the LEFT. LEFT foraminal disc protrusion. Mild LEFT foraminal s tenosis. L3-4: Large posterior laminectomy defect. At least moderate bilateral foraminal stenosis. L4-5: Large posterior laminectomy defect. Moderate bilateral foraminal stenosis. L5-S1: Large posterior laminectomy defect. Disc bulging. Mild foraminal stenosis. Sacral screws appear intact. No sacral fracture. Mildly ectatic abdominal aorta. CT/CT lumbar spine wo con* [id number] IMPRESSION: 1. Posterior lumbosacral fusion from L3-S2. 2. Significant perihardware lucency associated with the L3 pedicle screws. Con sistent with hardware loosening. 3. Lucency erodes through the superior endplate on the LEFT at the L3 pedicle screw and there is an bone gap along the superior endplate of L3 on the RIGHT. Consistent with a prior fracture. 4. Large posterior laminectomy defect from L3-4 to L5-S1. 5. Mild LEFT foraminal stenosis due to asymmetric disc bulging at L2-3. 6. Moderate foraminal stenosis at L3-4 and L4-5. 7. Mild foraminal stenosis at L5-S1.
== END 2024-11-27 15:48 | disposition home or self-care (01) ==
LOC: RAD 15:48
PROVIDERS: PCP Family Medicine; Visit Provider Orthopaedic Surgery
DX: M48.061 Spinal stenosis, lumbar region without neurogenic claudication (principal); M48.07 Spinal stenosis, lumbosacral region; Z98.1 Arthrodesis status; M96.89 Other intraoperative and postprocedural complications and disorders of the musculoskeletal system; M43.16 Spondylolisthesis, lumbar region; M51.369 Other intervertebral disc degeneration, lumbar region without mention of lumbar back pain or lower extremity pain; M51.26 Other intervertebral disc displacement, lumbar region; M51.379 Other intervertebral disc degeneration, lumbosacral region without mention of lumbar back pain or lower extremity pain; I77.811 Abdominal aortic ectasia; R93.89 Abnormal findings on diagnostic imaging of other specified body structures
CPT/HCPCS: 72131

== ENCOUNTER → 2024-12-11 14:38 | Outpatient (BNVA) | payer MEDICAID, SELFPAY | PROVIDERS: PCP Family Medicine; Visit Provider Orthopaedic Surgery | DX: Z01.818 Encounter for other preprocedural examination (principal); Z98.1 Arthrodesis status; M48.062 Spinal stenosis, lumbar region with neurogenic claudication | CPT/HCPCS: 36415; 80053; 81001; 85025; 99214 ==

== ENCOUNTER → 2025-01-16 05:38 | Day surgery (SDC) | payer MEDICAID, SELFPAY ==
[2025-01-16] VITALS (51 sets, daily range): BP systolic 79–124; BP diastolic 44–88; PULSE 53–92; RESP 9–20; TEMP 36.1–37; O2SAT 89–99; BMI 32.3
--- NOTE | 2025-01-16 06:15 | W.PM.OPSFHP ---
Same Day Surgery H&P Indication for Procedure/HPI DATE OF PROCEDURE: January 16, 2025 CHIEF COMPLAINT/INDICATIONFOR SURGICAL PROCEDURE: Back pain PREOP DIAGNOSIS: Painful orthopedic hardware in lumbar spine PLANNED PROCEDURE: Operation Date: 01/16/25 07:00 Proposed Procedures p Hardware Removal Back(Not Applicable) - Eusebio Pereira, DO Medications/Allergies* Home Medications ?Medication ?Instructions ?Recorded ?Confirmed ?Type acetaminophen 500 mg tablet 1,000 mg PO TID PRN Pain 12/03/19 01/15/25 History (Tylenol Extra Strength) diclofenac sodium 75 mg 75 mg PO BID pain 04/24/22 01/15/25 History tablet,delayed release pregabalin 300 mg capsule (Lyrica) 300 mg PO BID pain 04/24/22 01/15/25 History budesonide-formoterol HFA 160 1 puff inhalation DAILY 01/22/24 01/15/25 History mcg-4.5 mcg/actuation aerosol inhaler (Symbicort) cetirizine 10 mg tablet 10 mg PO BEDTIME 01/25/24 01/15/25 History famotidine 20 mg tablet 20 mg PO BID 01/25/24 01/15/25 History omeprazole 20 mg capsule,delayed 20 mg PO DAILY 01/25/24 01/15/25 History release buspirone 5 mg tablet 5 mg PO DAILY 01/15/25 01/15/25 History ipratropium 20 mcg-albuterol 100 20 - 100 puff inhalation DAILY 01/15/25 01/15/25 History mcg/actuation mist for inhalation (Combivent Respimat) Allergies/Adverse Reactions Allergy/AdvReac Type Severity Reaction Status Date / Time bacitracin (From Neosporin Allergy BLISTERS Verified 12/29/24 10:45 ([id number])) neomycin (From Neosporin Allergy BLISTERS Verified 12/29/24 10:45 ([id number])) polymyxin B (From Neosporin Allergy BLISTERS Verified 12/29/24 10:45 ([id number])) Pertinent History/Comorbid Conditions* Medical History Cigarette smoker motivated to quit Heavy cigarette smoker Alcohol use disorder, moderate, in sustained remission Major depressive disorder, recurrent severe without psychotic features Chronic post-traumatic stress disorder Generalized joint pain Lumbar spondylosis Spinal stenosis of lumbar region with radiculopathy Smoker Surgical History (Updated 02/26/24 @ 11:20 by Eusebio Pereira DO) S/P tonsillectomy H/O spinal fusion 1998 [facility] C5-C6 DISCECTOMY/ FUSION/ FIXATION Status post carpal tunnel release of both wrists Status post delivery S/P excision of ganglion cyst S/P correction of deviated nasal septum Hx of foot surgery (~2017) RIGHT FOOT SURGERY POST WOUND NOT HEALING OSTEOMYLITIS Family History (Updated 12/03/19 @ 12:02 by Jacinta Pink RN) Dementia Mother Heart disease Cancer Father STOMACH CANCER Social History Smoking and tobacco/nicotine status: current every day tobacco/nicotine user cigarettes Years cigarettes smoked: 40 [ Other cigarette details: 1 PPD] Quit status (tobacco/nicotine): considering quitting Second hand smoke exposure: Yes Alcohol intake: current Alcohol intake frequency: holidays/special occasions only Substance/Drug Use: current Substance/Drug use frequency: few times a month Other substance/drug use details: smokes about once a week Adopted: No Caregiver/support person: No Lives independently: Yes Household members: none Housing: Apartment Marital status: Marital status details: since 2009 Number of children: 3 Number of grandchildren: 6 Highest education level completed: GED or Equivalent service: No Current occupational status: disabled Current occupational exposures/hazards: No Pets and animals: No Leisure activites: other Leisure activities details: TV and plant weinstein Sexually active: No Do you think of yourself as: Straight/Heterosexual Current gender identity: Female Celeste/Scientology: Yarsanism Special celeste needs: No Agree to transfusion: Yes Pertinent Exam Findings alert, oriented x 3 and procedure specific exam findings Recommendations Surgery/Procedure today Coding Level of Care Code Acute Code for Chg Fwd
[2025-01-16] MEDS: sodium chloride 0.9% 1,000 ML 30 ML IV ×2 (06:37→10:38)
--- NOTE | 2025-01-16 06:51 | ANES.PREANE2 ---
Pre-Anesthetic Assessment Height/Weight: Height 1.68 m Weight 90.718 kg Temp Pulse Resp BP Pulse Ox O2 Del Method 98.6 F 85 18 101/78 94 Room Air 01/16/25 06:05 01/16/25 06:05 01/16/25 06:05 01/16/25 06:05 01/16/25 06:05 01/16/25 06:05 Preop Diagnosis: Painful orthopedic hardware in lumbar spine Operation Date: 01/16/25 07:00 Proposed Procedures p Hardware Removal Back(Not Applicable) - Eusebio Pereira, DO Familial anesthetic complications: None Was Beta Grace taken within 24 hours: N/A Was Clonidine taken within 24 hours: N/A Last intake: Intake Last Liquid Date 01/15/25 Last Liquid Time 23:55 Last Solid Date 01/15/25 Last Solid Time 23:00 Social Tobacco and No alcohol Exam alert, oriented x 3, clear to auscultation bilaterally and regular rate & rhythm Airway Mallampati: Class III Dentition: full Comments: Comments: mutiple broken and missing, 2 recently removed Pulmonary Chronic Obstructive Pulmonary Disease GI Gastroesophageal Reflux Disease Anesthetic Plan ASA status: 3 Anesthesia: General Risk of > 500 ml blood loss (7ml/kg in children): No Medications/Allergies Home Medications ?Medication ?Instructions ?Recorded ?Confirmed ?Last Taken ?Type acetaminophen 500 mg tablet 1,000 mg PO TID PRN Pain 12/03/19 01/16/25 2 Weeks Ago History (Tylenol Extra Strength) ~01/02/25 diclofenac sodium 75 mg 75 mg PO BID pain 04/24/22 01/15/25 01/15/25 History tablet,delayed release pregabalin 300 mg capsule (Lyrica) 300 mg PO BID pain 04/24/22 01/15/25 01/15/25 History trazodone 50 mg tablet 50 mg PO .bedtime PRN sleep #60 04/16/23 01/15/25 01/14/25 Rx tabs budesonide-formoterol HFA 160 1 puff inhalation DAILY 01/22/24 01/15/25 01/16/25 05:30 History mcg-4.5 mcg/actuation aerosol inhaler (Symbicort) cetirizine 10 mg tablet 10 mg PO BEDTIME 01/25/24 01/15/25 01/15/25 History famotidine 20 mg tablet 20 mg PO BID 01/25/24 01/15/25 01/15/25 History omeprazole 20 mg capsule,delayed 20 mg PO DAILY 01/25/24 01/15/25 01/15/25 History release naloxone 4 mg/actuation nasal 1 spray intranasal Q3M #2 ea 03/25/24 01/15/25 Unknown Rx spray (Narcan) oxycodone 10 mg tablet 10 mg PO Q4H PRN pain 7 days #40 04/14/24 01/15/25 01/15/25 Rx tabs buspirone 5 mg tablet 5 mg PO DAILY 01/15/25 01/15/25 01/15/25 History ipratropium 20 mcg-albuterol 100 20 - 100 puff inhalation DAILY 01/15/25 01/15/25 01/15/25 History mcg/actuation mist for inhalation (Combivent Respimat) Allergies Allergy/AdvReac Type Severity Reaction Status Date / Time bacitracin (From Neosporin Allergy BLISTERS Verified 12/29/24 10:45 ([id number])) neomycin (From Neosporin Allergy BLISTERS Verified 12/29/24 10:45 ([id number])) polymyxin B (From Neosporin Allergy BLISTERS Verified 12/29/24 10:45 ([id number])) Current Medications Generic Name Dose Route Start Last Admin Trade Name Freq PRN Reason Stop Dose Admin Sodium Chloride 1,000 mls @ 30 mls/hr 01/16/25 06:00 01/16/25 06:37 Sodium Chloride 0.9% IV 01/17/25 05:59 30 mls/hr .Q24H PRICE Administration PFSH Anesthesia Medical History Cigarette smoker motivated to quit Heavy cigarette smoker Alcohol use disorder, moderate, in sustained remission Major depressive disorder, recurrent severe without psychotic features Chronic post-traumatic stress disorder Generalized joint pain Lumbar spondylosis Spinal stenosis of lumbar region with radiculopathy Smoker Surgical History S/P tonsillectomy H/O spinal fusion 1998 [facility] C5-C6 DISCECTOMY/ FUSION/ FIXATION Status post carpal tunnel release of both wrists Status post delivery S/P excision of ganglion cyst S/P correction of deviated nasal septum Hx of foot surgery (~2017) RIGHT FOOT SURGERY POST WOUND NOT HEALING OSTEOMYLITIS Family History Father Cancer STOMACH CANCER Mother Dementia Other Heart disease Social History Smoking and tobacco/nicotine status: current every day tobacco/nicotine user cigarettes Years cigarettes smoked: 40 [ Other cigarette details: 1 PPD] Quit status (tobacco/nicotine): considering quitting Second hand smoke exposure: Yes Alcohol intake: current Alcohol intake frequency: holidays/special occasions only Substance/Drug Use: current Substance/Drug use frequency: few times a month Other substance/drug use details: smokes about once a week Adopted: No Caregiver/support person: No Lives independently: Yes Household members: none Housing: Apartment Marital status: Marital status details: since 2009 Number of children: 3 Number of grandchildren: 6 Highest education level completed: GED or Equivalent service: No Current occupational status: disabled Current occupational exposures/hazards: No Pets and animals: No Leisure activites: other Leisure activities details: TV and plant weinstein Sexually active: No Do you think of yourself as: Straight/Heterosexual Current gender identity: Female Celeste/Scientology: Catholic Special celeste needs: No Agree to transfusion: Yes Female Reproductive History Para: 3 Spontaneous abortions: No Data Anesthesia Cardiac Studies: No Data to Display
[2025-01-16] MEDS: ceFAZolin 2,000 mg SDV 2000 MG IVP (06:58)
[2025-01-16] MEDS: VANCOMYCIN ADD-Vantage 1,000 MG VIAL 1000 MG XX (07:27)
[2025-01-16] MEDS: lidocaine-epi 1% 20 mL INJ 10 ML INJECTION (07:28)
--- NOTE | 2025-01-16 07:58 | PM.OP ---
Operative Report Date of procedure: January 16, 2025 Pre-op diagnosis: Painful orthopedic hardware in spine Post-op diagnosis: same Post-op findings: Removal of deep hardware from lumbar spine Surgeon: Eusebio Pereira DO Estimated blood loss (mL): 10 Procedure: Removal orthopedic hardware from lumbar spine Patient brought the op suite after undergoing anesthesia was placed in the prone position. All areas impingement were well-padded. Patient was then prepped and draped normal sterile fashion. Skin incision was made over the proximal part of the incision. Dissection was made down to the thoracolumbar fascia. A Wiltsie approach was used on the right side. Dissecting down through the muscle retractors placed the sailaja and screws were identified. The screw Was removed. Then the sailaja was cut just proximal to the L4 screw. The L3 screw on the right was then removed. Wound was irrigated vancomycin powder was placed and thoracolumbar fascia was closed. Next tension was brought to the left side. Again a Wiltsie approach was used over the screw dissected down through the muscle of the sailaja and L3 screw identified. Retractors placed the sailaja was cut using a metal cutting bur. The screw at L3 was then removed. Wound was irrigated vancomycin powder was placed in the thoracolumbar fascia was closed. Wound was then closed in a layered fashion with 0 Vicryl 2-0 Vicryl Monocryl suture. Sterile dressings were applied patient transferred to the PACU in stable condition.
[2025-01-16] MEDS: fentaNYL 50 mcg/mL INJ 2mL IVP ×2 (08:05→08:22)
[2025-01-16] MEDS: HYDROmorphone 1 mg/mL INJ 1 mL 0.5 MG IVP ×4 (08:31→12:28)
--- NOTE | 2025-01-16 09:07 | XR_ITS ---
WS: [id number] XR lumbar spine 2-3V* [id number] REASON FOR EXAM: HARDWARE REMOVAL FINDINGS: Posterior lumbar fusion with bilateral pedicle screws and pelvic screws with interconnecting rods L3 to the pelvis. Surgical instrument overlies the L3-L4 disc space from the left side. XR/XR lumbar spine 2-3V* [id number] IMPRESSION: Lumbar localization and surgery as above.
--- NOTE | 2025-01-16 09:40 | PC.NURSE ---
BP - down to 79/44. Dr. Bravo called. Here to give med for BP
--- NOTE | 2025-01-16 10:03 | PC.NURSE ---
BP - gave medication for LOW bp
[2025-01-16] MEDS: acetaminophen 1,000 MG/100 ML PIGGYBACK 100 MG (10:36)
--- NOTE | 2025-01-16 11:40 | ANE.PACU2 ---
Inpatient post-anesthesia follow up: Airway intact: Yes Vital signs: Temperature 97.4 F Pulse Rate 63 Respiratory Rate 12 Blood Pressure 90/62 Pulse Oximetry 93 Oxygen Delivery Me thod Room Air Oxygen Flow Rate 3 Fraction of Inspir ed Oxygen Hydration adequate: Yes Nausea and vomiting: No Pain level: 1 Mental status: Baseline
--- NOTE | 2025-01-16 12:18 | PC.NURSE ---
Patient returned to OPS approximately 1210 with complaints of soiled dressing. Dressing appeared saturated, with small amount of drainage leaking from the bottom of the seal. Soiled dressing removed, no active bleeding noted, witnessed by Lavonne Camarena RN. Using aseptic technique, a new silverlon dressing placed over incision.
== END | disposition home or self-care (01) ==
PROVIDERS: PCP Family Medicine; Visit Provider Orthopaedic Surgery
PROC: (CPT 20680; principal; 2025-01-16 07:00)
DX: T84.84XA Pain due to internal orthopedic prosthetic devices, implants and grafts, initial encounter (principal); J44.9 Chronic obstructive pulmonary disease, unspecified; K21.9 Gastro-esophageal reflux disease without esophagitis; F17.210 Nicotine dependence, cigarettes, uncomplicated; Z98.1 Arthrodesis status
CPT/HCPCS: 20680; 72100; 76000; J0131; J0690; J1100; J1171; J2250; J2405; J2704; J2710; J3010; J3370; J3490; J7030; J9999

== ENCOUNTER 2025-02-11 10:38 | Inpatient (IN) | payer MEDICAID, SELFPAY ==
[2025-02-11] VITALS (75 sets, daily range): BP systolic 76–133; BP diastolic 54–81; PULSE 89–102; RESP 11–38; TEMP 36.4–36.6; O2SAT 83–100; BMI 35.9
[2025-02-11 11:04] LABS: Basophils # 0.1 10^3/uL (0.0-0.1); Basophils % 0.9 %; Eosinophils # 0.1 10^3/uL (0.0-0.8); Eosinophils % 0.9 %; Hematocrit 42.1 % (36-47); Lymphocytes # 0.8 10^3/uL (0.8-4.8); Mean Corpuscular HGB Conc 34.2 g/dL (30-55); Mean Corpuscular Hemoglobin 32.2 pg (27-33); Mean Corpuscular Volume 94.2 fl (85-98); Mean Platelet Volume 13.4 fL (7.4-10.4); Monocytes # 0.6 10^3/uL (0.2-0.9); Monocytes % 4.4 %; Neutrophils # 11.68 10^3/uL (1.8-7.7); Neutrophils % 86.1 %; Nucleated Red Blood Cells % 0 %; Platelet Count 83 10^3/cmm (157-399); Red Blood Count 4.47 10^6/uL (3.85-5.65); Red Cell Distribution Width 13.3 % (12.1-15.1); White Blood Count 13.56 10^3/uL (3.29-11.43)
[2025-02-11 11:22] LABS: Alanine Aminotransferase 42 U/L (0-33); Alkaline Phosphatase 305 U/L (35-105); Anion Gap 18.8 (5-19); Aspartate Amino Transferase 53 U/L (0-32); Blood Urea Nitrogen 46 mg/dL (6-20); Calcium 8.5 mg/dL (8.5-10.5); Carbon Dioxide 26 mmol/L (22-29); Chloride 90 mmol/L (98-107); Globulin 3.1 g/dL (1.3-4.6); Glomerular Filtration Rate 11.3 mL/min (90-130); Glucose 108 mg/dL (65-115); Lipase 17 U/L (13-60); Osmolality Calculated 284 mOsm/kg (285-295); Potassium 3.8 mmol/L (3.5-5.1); Sodium 131 mmol/L (136-145); Total Bilirubin 3.6 mg/dL (0.15-1.2); Total Protein 6.1 g/dL (6.6-8.7)
[2025-02-11 11:30] LABS: Slide Review Slide Review Perform
--- NOTE | 2025-02-11 11:34 | CT_ITS ---
WS: [id number] CT ABDOMEN AND PELVIS NONCONTRAST HISTORY: abd pain TECHNIQUE: Imaging performed through the abdomen and pelvis. Coronal and sagittal reformats are submitted. All CT scans at [facility] use at least one of these dose optimization techniques: automated exposure control; mA and/or kV adjustment per patient size (includes targeted exams where dose is matched to clinical indication); or iterative reconstruction. DLP: 909.59 mGy.cm COMPARISON: None available. Lower thorax: Small hiatal hernia. Otherwise negative. Liver: Liver is slightly enlarged with hepatic steatosis. Gallbladder: Gallbladder appears mildly distended. There is some mild increased attenuation within the gallbladder but no adjacent inflammation. Gallbladder ultrasound would be of benefit. Common bile duct is not dilated. Pancreas: Normal size and attenuation. Normal pancreatic duct. No pancreatitis or mass. Spleen: Normal size spleen with granulomata. Adrenal glands: Normal. No mass. Right kidney: Mild perinephric stranding. No obstruction. Mild renal enlargement. Left kidney: Mild perinephric stranding with obstruction. Kidneys measuring slightly enlarged. There is very mild periureteral soft tissue stranding. No obstructing ureteral calcification. Mild soft tissue thickening along the pararenal fascia of each kidney. Aorta: Mild atherosclerosis abdominal aorta with no aneurysm. Small amount of calcified plaque at the origin of the SMA and celiac axis. There is very mild soft tissue thickening and edema surrounding the celiac axis. No free fluid, intraperitoneal air or significant lymphadenopathy. GI tract: Nondistended stomach. No small bowel obstruction. Normal appendix. No colitis. Abdominal wall: Small umbilical hernia contains fat only. Pelvis: Urinary bladder is nondistended. Silva catheter is in place. Osseous structures: Prior lumbosacral fusion. Hardware removal with residual tract at L3. CT/CT kidney stone [id number] IMPRESSION: 1. Mild renal enlargement with perinephric stranding and thickening along the pararenal fascia. No obstruction. Correlate for pyelonephritis or acute glomeru lonephritis. 2. Increased attenuation within the gallbladder. Recommend RIGHT upper quadran t ultrasound. There is no adjacent inflammation. No bile duct dilatation. Stone s or sludge may be present. 3. Normal appendix. 4. Silva catheter in a nondistended bladder.
--- NOTE | 2025-02-11 11:34 | US_ITS ---
WS: [id number] RIGHT UPPER QUADRANT ULTRASOUND HISTORY: abd pain COMPARISON: CT 02/11/2025 Liver: 14.1 cm in length. Mild hepatic steatosis. No intrahepatic duct dilatation. No mass. Portal Vein: Normal hepatopetal flow with monophasic waveform. Gallbladder: Low-level echoes within the gallbladder with a few tiny foci which may be cholesterol deposits or stones. No pericholecystic fluid. Gallbladder wall is measuring 5 mm which is slightly enlarged. CBD: 0.5 cm Pancreas: Normal size and echogenicity. Right kidney: 11.9 cm in length. Normal size and echogenicity. No hydronephrosis or mass. Aorta and IVC: Unremarkable abdominal aorta and IVC. No ascites. US/US gall bladder [id number] IMPRESSION: 1. Mild sludge scattered throughout the gallbladder with a few tiny stones wit hin the sludge. 2. No pericholecystic fluid or bile duct dilatation.
--- NOTE | 2025-02-11 11:34 | XRR_ITS ---
PROCEDURE INFORMATION: Exam: XR Chest Exam date and time: 02/11/2025 10:38 AM Age: 54 years old Clinical indication: Prior surgery; Surgery date: <1 month; Surgery type: Lumbar surg x 3 weeks ago; Epigastric pain; N/v; Hypotension; SOB; Weakness; Additional info: Possible sepsis TECHNIQUE: Imaging protocol: Radiologic exam of the chest. Views: 1 view. COMPARISON: CR XR chest 1V portable [id number] 07/02/2023 6:45 PM FINDINGS: Lungs: Mild right basilar atelectasis or opacity laterally. Pleural spaces: Unremarkable. No pleural effusion. No pneumothorax. Heart/Mediastinum: There is straightening of the left heart border. Bones/joints: See Heart/Mediastinum finding. XR/XR chest 1V portable [id number] IMPRESSION: Mild right basilar atelectasis or opacity.
--- NOTE | 2025-02-11 11:45 | ECG_ITS ---
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[id number] Requested By: Agueda López Order Number: [id number] Reading MD: JASMINE YOU Measurements Intervals [place] Rate: 95 P: 76 CA: 144 QRS: 107 QRSD: 115 T: -11 QT: 371 QTc: 467 Interpretive Statements SINUS RHYTHM POSSIBLE LEFT ATRIAL ENLARGEMENT [-0.1mV P-WAVE IN V1/V2] RIGHT AXIS DEVIATION [QRS AXIS > 100] LOW QRS VOLTAGE IN PRECORDIAL LEADS [QRS DEFLECTION < 1.0 mV IN CHEST LEADS] SEPTAL MYOCARDIAL INFARCTION , OF INDETERMINATE AGE [40+ ms Q WAVE IN V1/V2] MODERATE T-WAVE ABNORMALITY, CONSIDER ANTEROLATERAL ISCHEMIA [-0.1+ mV T-WAVE IN V3-V6] Compared to ECG 07/02/2023 18:47:15 Right-axis deviation now present T-wave abnormality now present Possible ischemia now present Electronically Signed On 02-15-2025 21:54:02 CDT by JASMINE YOU [email or web address]
--- NOTE | 2025-02-11 11:47 | ED_ITS ---
HPI - Abdominal Pain 2 General: Chief Complaint: Abdominal Pain Stated Complaint: abd pain, nausea, sweating Time Seen by Provider: 02/11/25 11:33 Source: patient Mode of arrival: ambulatory Limitations: no limitations History of Present Illness: 54-year-old female states she has been h aving abdominal pain for last 3 to 4 days. States its diffuse in nature she states she has had some decreased urination her urine has been dark and foul odor. She denies any vomiting or diarrhea has had nausea denies any fevers denies any worse improving factors. Does have a history of alcohol use. Associated Symptoms: Reports nausea; Denies chills, diarrhea, dysuria, fever(s) and vomiting Related Data Home Medications ?Medication ?Instructions ?Recorded ?Confirmed acetaminophen 500 mg tablet 1,000 mg PO TID PRN Pain 0 12/03/19 02/11/25 (Tylenol Extra Strength) diclofenac sodium 75 mg 75 mg PO BID pain 04/24/22 0 02/11/25 tablet,delayed release budesonide-formoterol HFA 160 1 puff inhalation DAILY 01/22/24 02/11/25 mcg-4.5 mcg/actuation aerosol inhaler (Symbicort) buspirone 5 mg tablet 5 mg PO DAILY 01/15/2502/11 ipratropium 20 mcg-albuterol 100 20 - 100 puff inhalat ion DAILY 01/15/25 02/11/25 mcg/actuation mist for inhalation (Combivent Respimat) albuterol sulfate 90 mcg/actuation 2 puff inhalation Q 6H PRN 02/11/25 02/11/25 aerosol inhaler (Ventolin HFA) Shortness Of Breath duloxetine 60 mg capsule,delayed 601 mg PO DAILY 02/1102/11/25 release hydrocodone 5 mg-acetaminophen 325 1 - 2 tab PO .Q4-6H PRN Pain 02/11/25 02/11/25 mg tablet mupirocin 2 % topical ointment 1 applic topical BID NC N Skin 02/11/25 02/11/25 Irritation pregabalin 200 mg capsule 200 mg PO BID 02/11/2502/11 trazodone 50 mg tablet 50 - 100 mg PO .bedtime PRN sleep 02/11/25 02/11/25 Previous Rx's ?Medication ?Instructions ?Recorded naloxone 4 mg/actuation nasal 1 spray intranasal Q3M # 2 ea 03/25/24 spray (Narcan) oxycodone 10 mg tablet 10 mg PO Q4H PRN pain 7 days #40 01/28/25 tabs Allergies Allergy/AdvReac Type Severity Reaction Status Date / Time bacitracin (From Neosporin Allergy BLISTERS Verified 12/29/24 10:45 ([id number])) neomycin (From Neosporin Allergy BLISTERS Verified 12/29/24 10:45 ([id number])) polymyxin B (From Neosporin Allergy BLISTERS Verified 12/29/24 10:45 ([id number])) Review of Systems 2 Const: Denies: fever(s), chills, body aches or change in appetite ENMT: Denies: throat pain or dental pain Card: Denies: chest pain Resp: Denies: dyspnea GI: Reports: abdominal pain and nausea; Denies: vomiting or diarrhea : Denies: dysuria Musc: Denies: neck pain or back pain Skin/Breast: Denies: rash Neuro: Denies: headache(s) PFSH ED 2 PFSH: Medical History Cigarette smoker motivated to quit Heavy cigarette smoker Alcohol use disorder, moderate, in sustained remission Major depressive disorder, recurrent severe without psychotic features Chronic post-traumatic stress disorder Generalized joint pain Lumbar spondylosis Spinal stenosis of lumbar region with radiculopathy Smoker Surgical History S/P tonsillectomy H/O spinal fusion 1998 [facility] C5-C6 DISCECTOMY/ FUSION/ FIXATION Status post carpal tunnel release of both wrists Status post delivery S/P excision of ganglion cyst S/P correction of deviated nasal septum Hx of foot surgery (~2017) RIGHT FOOT SURGERY POST WOUND NOT HEALING OSTEOMYLITIS Family History Father Cancer STOMACH CANCER Mother Dementia Other Heart disease Social History Smoking and tobacco/nicotine status: current every day tobacco/nicotine user cigarettes Years cigarettes smoked: 40 [ Other cigarette details: 1 PPD] Quit status (tobacco/nicotine): considering quitting Second hand smoke exposure: Yes Alcohol intake: current Alcohol intake frequency: holidays/special occasions only Substance/Drug Use: current Substance/Drug use frequency: few times a month Other substance/drug use details: smokes about once a week Adopted: No Caregiver/support person: No Lives independently: Yes Household members: none Housing: Apartment Marital status: Marital status details: since 2009 Number of children: 3 Number of grandchildren: 6 Highest education level completed: GED or Equivalent service: No Current occupational status: disabled Current occupational exposures/hazards: No Pets and animals: No Leisure activites: other Leisure activities details: TV and plant weinstein Sexually active: No Do you think of yourself as: Straight/Heterosexual Current gender identity: Female Celeste/Mosque: Caodaism Special celeste needs: No Agree to transfusion: Yes Female Reproductive History: Para: 3 Spontaneous abortions: No Physical Exam 2 Const: COMMON NORMALS: patient oriented x3 HENMT: COMMON NORMALS: normocephalic and atraumatic HEAD & SCALP: n ormocephalic and atraumatic Eye: COMMON NORMALS: conjunctivae normal CONJUNCTIVA: Yes conjunctivae normal Neck/C-Spine: COMMON NORMALS: full ROM and supple Chest: COMMONS NORMALS: normal inspection of the chest and normal palpation of entire chest wall Resp: COMMON NORMALS: normal respiratory effort, No retractions, No use of accessory muscles and clear to auscultation bilaterally AUSCULTATION: clear to auscultation bilaterally Cardio: COMMON NORMALS: regular rate, regular rhythm and No murmurs present (Cardio) RATE: regular rate RHYTHM: regular rhythm GI: COMMON NORMALS: Normal to inspection, nondistended, normoactive bowel sounds present, Soft to palpation and no masses PALPATION: Yes Soft to palpation OTHER: diffuse abd tenderness Extremity: COMMON NORMALS: normal to inspection and full ROM Neuro: COMMON NORMALS: patient oriented x3, moves all extremities and no focal motor deficits Psych: COMMON NORMALS: mental status grossly normal, Normal thought process present and cooperative THOUGHT PROCESS: Normal thought process present Skin: COMMON NORMALS: no rashes or lesions noted and no wounds GENERAL SKIN EXAM: no rashes or lesions noted Course 2 Vital Signs: Vital signs: Vital Signs Temperature 97.8 F 02/11/25 11:28 Pulse Rate 96 02/11/25 19:00 Respiratory Rate 16 02/11/25 18:04 Blood Pressure 99/72 02/11/25 19:00 Pulse Oximetry 95 02/11/25 19:00 Oxygen Delivery Me thod Nasal Cannula 02/11/25 19:00 Oxygen Flow Rate 2 02/11/25 18:04 MDM - Abdominal Pain Medical Decision Making Patient presents here with UTI causing sepsis along with acute neck injury injury likely from dehydration. Patient's blood pressure improved greatly after sepsis bolus did start on IV antibiotics spoke to hospice will admit at this time Medical Records I reviewed the patient's medical records. Lab Data I reviewed the patient's lab results. 02/11/25 10:56 02/11/25 10:56 Labs/Radiology: Radiology Impressions Abdomen/Pelvis CT 02/11/25 11:34 IMPRESSION: 1. Mild renal enlargement with perinephric stranding and thickening along the pararenal fascia. No obstruction. Correlate for pyelonephritis or acute glomerulonephritis. 2. Increased attenuation within the gallbladder. Recommend RIGHT upper quadrant ultrasound. There is no adjacent inflammation. No bile duct dilatation. Stones or sludge may be present. 3. Normal appendix. 4. Silva catheter in a nondistended bladder. Chest X-Ray 02/11/25 11:34 IMPRESSION: Mild right basilar atelectasis or opacity. Gallbladder Ultrasound 02/11/25 11:34 IMPRESSION: 1. Mild sludge scattered throughout the gallbladder with a few tiny stones within the sludge. 2. No pericholecystic fluid or bile duct dilatation. Laboratory Results WBC 13.56 10^3/uL (3.29-11.43) H 02/11/25 10:56 RBC 4.47 10^6/uL (3.85-5.65) 02/11/25 10:56 Hgb 14.40 g/dL (11.27-16.99) 02/11/25 10:56 Hct 42.1 % (36-47) 02/11/25 10:56 MCV 94.2 fl (85-98) 02/11/25 10:56 MCH 32.2 pg (27-33) 02/11/25 10:56 MCHC 34.2 g/dL (30-55) 02/11/25 10:56 RDW 13.3 % (12.1-15.1) 02/11/25 10:56 Plt Count 83 10^3/cmm (157-399) L 02/11/25 10:56 MPV 13.4 fL (7.4-10.4) H 02/11/25 10:56 Neut % (Auto) 86.1 % 02/11/25 10:56 Lymph % (Auto) 6.0 % 02/11/25 10:56 [place] % (Auto) 4.4 % 02/11/25 10:56 Eos % (Auto) 0.9 % 02/11/25 10:56 Baso % (Auto) 0.9 % 02/11/25 10:56 Neut # (Auto) 11.68 10^3/uL (1.8-7.7) H 02/11/25 10:56 Lymph # (Auto) 0.8 10^3/uL (0.8-4.8) 02/11/25 10:56 [place] # (Auto) 0.6 10^3/uL (0.2-0.9) 02/11/25 10:56 Eos # (Auto) 0.1 10^3/uL (0.0-0.8) 02/11/25 10:56 Baso # (Auto) 0.1 10^3/uL (0.0-0.1) 02/11/25 10:56 Nucleated RBC % (auto) 0 % 02/11/25 10:56 Nucleated RBCs # 0.0 /100WBC 02/11/25 10:56 PT 14.50 SECONDS (12.1-14.9) 02/11/25 10:56 INR 1.06 (0.8-1.2) 02/11/25 10:56 Sodium 131 mmol/L (136-145) L 02/11/25 10:56 Potassium 3.8 mmol/L (3.5-5.1) 02/11/25 10:56 Chloride 90 mmol/L (98-107) L 02/11/25 10:56 Carbon Dioxide 26 mmol/L (22-29) 02/11/25 10:56 Anion Gap 18.8 (5-19) 02/11/25 10:56 BUN 46 mg/dL (6-20) H 02/11/25 10:56 Creatinine 4.1 mg/dL (0.5-0.9) H 02/11/25 10:56 GFR Calculation 11.3 mL/min (90-130) L 02/11/25 10:56 Glucose 108 mg/dL (65-115) 02/11/25 10:56 Calculated Osmolality 284 mOsm/kg (285-295) L 02/11/25 10:56 Lactic Acid 3.3 mmol/L (0.5-2.2) H 02/11/25 10:56 Calcium 8.5 mg/dL (8.5-10.5) 02/11/25 10:56 Total Bilirubin 3.6 mg/dL (0.15-1.2) H 02/11/25 10:56 AST 53 U/L (0-32) H 02/11/25 10:56 ALT 42 U/L (0-33) H 02/11/25 10:56 Alkaline Phosphatase 305 U/L (35-105) H 02/11/25 10:56 Total Protein 6.1 g/dL (6.6-8.7) L 02/11/25 10:56 Albumin 3.0 g/dL (3.5-5.2) L 02/11/25 10:56 Globulin 3.1 g/dL (1.3-4.6) 02/11/25 10:56 Lipase 17 U/L (13-60) 02/11/25 10:56 TSH 0.32 uIU/mL (0.27-4.20) 02/11/25 10:56 Urine Color Dark yellow (Yellow) A 02/11/25 12:35 Urine Appearance Cloudy (CLEAR) A 02/11/25 12:35 Urine pH 7 (5-7) 02/11/25 12:35 Ur Specific [place] 1.010 (1.005-1.030) 02/11/25 12:35 Urine Protein 3+ (Negative) H 02/11/25 12:35 Urine Glucose (UA) Norm (Normal) 02/11/25 12:35 Urine Ketones Negative (Negative) 02/11/25 12:35 Urine Blood 3+ (Negative) H 02/11/25 12:35 Urine Nitrate Negative (Negative) 02/11/25 12:35 Urine Bilirubin 1+ (Negative) H 02/11/25 12:35 Urine Urobilinogen 4 mg/dL (Negative) H 02/11/25 12:35 Ur Leukocyte Esterase 2+ (Negative) H 02/11/25 12:35 Urine RBC >100 /hpf (0-2) H 02/11/25 12:35 Urine WBC >100 /hpf (0-5) H 02/11/25 12:35 Ur Squamous Epith Cells 6-10 /hpf (0-5) 02/11/25 12:35 Amorphous Sediment Not Reportable 02/11/25 12:35 Urine Bacteria Exceeds /hpf (NONE) 02/11/25 12:35 Hyaline Casts 67.74 /lpf 02/11/25 12:35 Ethyl Alcohol < 10 mg/dL (0-10) 02/11/25 10:56 Hepatitis A IgM Ab Non-reactive (Nonreactive) 02/11/25 11:58 Hep Bs Antigen Non-reactive (Nonreactive) 02/11/25 11:58 Hep Bs Antibody < 3.5 (11.5-1000) L 02/11/25 11:58 Hep B Core Total Ab Non-reactive (Nonreactive) 02/11/25 11:58 Hepatitis C Antibody Non-reactive (Nonreactive) 02/11/25 11:58 All radiology interpretation(s) finalized by discharge EKG Data EKG 1: I personally reviewed and interpreted this EKG as follows: EKG interpretation date: 02/11/25 EKG interpretation time: 11:36 Interpretation: nsr hr [address] elevation qrs 115 qtc 424 Critical Care Time 2 Critical Care Time: Critical Care Time: Yes Total Critical Care Time: 50 Attestation: The high probability of a clinically significant, sudden or life threatening deterioration of the patient's gu system(s) required my full and direct attention, intervention and personal management. The critical care time is as shown. This time is in addition to time spent performing any reported procedures but includes the following: [x] Data and vital sign review and interpretation [x] Patient assessment, examination and intervention [x] Documentation [x] Medication orders and management Discharge Plan Discharge Patient Disposition: Admitted As Inpatient Admit Provider: Stella Watson Clinical Impression: Acute kidney injury, Hypotension, Pyelonephritis Condition: Stable Coding Level of Care Code ED Glue Maker for Chg Angelita
[2025-02-11] MEDS: VANCOMYCIN ADD-Vantage 1,000 MG in 0.9% NaCl ADD-Vantage 250 ML 250 MG IV (12:23)
[2025-02-11] MEDS: sodium chloride 0.9% 2,857.62 ML 2857.62 ML IV (12:23)
[2025-02-11] MEDS: ondansetron 2 mg/ML SDV 2 mL 4 MG IVP (12:23)
[2025-02-11] MEDS: piperacillin-tazobactam 3.375 GM in sodium chloride 0.9% (plus) 50 ML IV (12:23)
[2025-02-11 12:39] LABS: INR 1.06 (0.8-1.2)
[2025-02-11 12:47] LABS: Urine Appearance Cloudy (CLEAR); Urine Color Dark Yellow (Yellow)
[2025-02-11 12:48] LABS: Add Urine Microscopic? YES; Bilirubin Urine 1+ (Negative); Blood Urine 3+ (Negative); Glucose Urine UA Norm (Normal); Ketones Urine Negative (Negative); Leukocyte Esterase Urine 2+ (Negative); Nitrate Urine Negative (Negative); Protein Urine 3+ (Negative); Urobilinogen Urine 4 mg/dL (Negative); pH Urine 7 (5-7)
[2025-02-11 12:48] LABS: Alcohol Level < 10 mg/dL (0-10)
[2025-02-11 12:49] LABS: Lactic Sepsis W/Reflex 3.3 mmol/L (0.5-2.2)
[2025-02-11 12:50] LABS: Bacteria Urine EXCEEDS /hpf; Hyaline Casts Urine 67.74 /lpf; RBC Urine >100 /hpf (0-2); WBC Urine >100 /hpf (0-5)
[2025-02-11 13:02] LABS: UA Slide Review UA Slide Review Perf
[2025-02-11 13:04] LABS: Add Urine Culture? Yes
[2025-02-11 13:09] LABS: Hepatitis A Antibody IgM Non-Reactive (Nonreactive); Hepatitis B Core AB, Total Non-Reactive (Nonreactive); Hepatitis B Surface AB < 3.5 (11.5-1000); Hepatitis B Surface Antigen Non-Reactive (Nonreactive); Hepatitis C Virus Antibody Non-Reactive (Nonreactive)
[2025-02-11 14:10] LABS: Reflex Lactate Order REFLEX LACTIC ORDERD
[2025-02-11] MEDS: sodium chloride 0.9% 1,000 ML 100 ML IV ×2 (14:50→23:31)
[2025-02-11 15:06] LABS: Lactic Acid level (Lactate) 2.2 mmol/L (0.5-2.2)
--- NOTE | 2025-02-11 15:43 | PHA.VACGOAL ---
Vancomycin Goal - Goal Vancomycin Indication:: Other - Therapy Day of therpy:: Day []of [] . Actual body weight (kg): 210 lb - Data Labs: WBC 13.56 10^3/uL (3.29-11.43) H 02/11/25 10:56 RBC 4.47 10^6/uL (3.85-5.65) 02/11/25 10:56 Hgb 14.40 g/dL (11.27-16.99) 02/11/25 10:56 Hct 42.1 % (36-47) 02/11/25 10:56 MCV 94.2 fl (85-98) 02/11/25 10:56 MCH 32.2 pg (27-33) 02/11/25 10:56 MCHC 34.2 g/dL (30-55) 02/11/25 10:56 RDW 13.3 % (12.1-15.1) 02/11/25 10:56 Sodium 131 mmol/L (136-145) L 02/11/25 10:56 Potassium 3.8 mmol/L (3.5-5.1) 02/11/25 10:56 Chloride 90 mmol/L (98-107) L 02/11/25 10:56 Carbon Dioxide 26 mmol/L (22-29) 02/11/25 10:56 Anion Gap 18.8 (5-19) 02/11/25 10:56 BUN 46 mg/dL (6-20) H 02/11/25 10:56 Creatinine 4.1 mg/dL (0.5-0.9) H 02/11/25 10:56 GFR Calculation 11.3 mL/min (90-130) L 02/11/25 10:56 Treatment plan:: new consult Regimen:: 1000 mg in ER pulse dosing CHECK TROUGH 3 @ 1200
[2025-02-11] MEDS: ipratropium-albuterol 3 mL Neb INHALATION (16:04)
[2025-02-11 16:14] LABS: Thyroid Stimulating Hormone 0.32 uIU/mL (0.27-4.20)
[2025-02-11] MEDS: enoxaparin 40 mg/0.4 mL Syringe SUBCUT (16:20)
--- NOTE | 2025-02-11 17:33 | PM.HP ---
Providers/Chief Complaint Admitting Physician: Stella Watson MD Primary Care Provider: Yobany Iverson Chief Complaint: abd pain, nausea, sweating History of Present Illness Kailyn Jeffers is a 54 year old female Who is presenting to the hospital today with chief complaints of feeling generalized unwell over the last 4 to 5 days. She states she has been experiencing abdominal pain, more over the left side of his belly, radiating forward. Denies any known history of renal stones. Denies any nausea vomiting or diarrhea. No sick contacts in her home. Denies fever but has been experiencing chills. In the emergency room she was noted to be hypotensive. She received 3 L fluid bolus after being found to have an elevated lactate. Labs also noted for acute kidney injury and a positive UA. Patient denies any dysuria. Denies any history of recurrent UTIs. Denies any recent surgical procedures. Past medical history notable for COPD. Denies any dyspnea currently. Review of Systems General: Reports: 10 or more systems reviewed and unremarkable except in HPI and below Const: Denies: fever(s), chills or body aches Eyes: Denies: change in vision, blurry vision or photophobia ENMT: Reports: hoarseness; Denies: throat pain, enlarged tonsils, odynophagia or nasal congestion Card: Denies: chest pain, palpitations, irregular heart rhythm, edema, swelling of feet/ankles, lightheadedness, pre-syncope, dyspnea on exertion or orthopnea Resp: Denies: dyspnea, productive cough, non-productive cough, wheezing, stridor, pain on inspiration, change in phlegm color, hemoptysis or chest congestion GI: Denies: abdominal pain, nausea, vomiting, hematemesis, coffee ground emesis, dysphagia, heartburn, diarrhea, constipation, GI cramping, change in stool character, hematochezia or melena : Denies: flank pain, difficulty voiding, dysuria, urinary frequency, urinary urgency, urinary hesitancy or hematuria Musc: Denies: neck pain, back pain, extremity pain, joint swelling, joint warmth or deformity Neuro: Denies: headache(s), numbness in extremities, weakness in extremities, sensory changes, difficulty walking, frequent falls, dizziness, vertigo, behavioral changes, Slurred speech present or seizure-like activity Psych: Denies: anxiety, depression, suicidal ideation or homicidal ideation Endo: Denies: polyuria, polydipsia, tired all the time, cold intolerance or hot flashes Jn/Lymph: Denies: easy bruising or easy bleeding Medications/Allergies Home Medications ?Medication ?Instructions ?Recorded ?Confirmed ?Last Taken ?Type acetaminophen 500 mg tablet 1,000 mg PO TID PRN Pain 12/03/19 02/11/25 2 Weeks Ago History (Tylenol Extra Strength) ~01/02/25 diclofenac sodium 75 mg 75 mg PO BID pain 04/24/22 02/11/25 02/08/25 History tablet,delayed release budesonide-formoterol HFA 160 1 puff inhalation DAILY 01/22/24 02/11/25 02/08/25 History mcg-4.5 mcg/actuation aerosol inhaler (Symbicort) naloxone 4 mg/actuation nasal 1 spray intranasal Q3M #2 ea 03/25/24 02/11/25 Unknown Rx spray (Narcan) buspirone 5 mg tablet 5 mg PO DAILY 01/15/25 02/11/25 02/08/25 History ipratropium 20 mcg-albuterol 100 20 - 100 puff inhalation DAILY 01/15/25 02/11/25 02/08/25 History mcg/actuation mist for inhalation (Combivent Respimat) oxycodone 10 mg tablet 10 mg PO Q4H PRN pain 7 days #40 01/28/25 02/11/25 Unknown Rx tabs albuterol sulfate 90 mcg/actuation 2 puff inhalation Q6H PRN 02/11/25 02/11/25 Unknown History aerosol inhaler (Ventolin HFA) Shortness Of Breath duloxetine 60 mg capsule,delayed 601 mg PO DAILY 02/11/25 02/11/25 02/08/25 History release hydrocodone 5 mg-acetaminophen 325 1 - 2 tab PO .Q4-6H PRN Pain 02/11/25 02/11/25 Unknown History mg tablet mupirocin 2 % topical ointment 1 applic topical BID PRN Skin 02/11/25 02/11/25 Unknown History Irritation pregabalin 200 mg capsule 200 mg PO BID 02/11/25 02/11/25 02/08/25 History trazodone 50 mg tablet 50 - 100 mg PO .bedtime PRN sleep 02/11/25 02/11/25 02/08/25 History Allergies Allergy/AdvReac Type Severity Reaction Status Date / Time bacitracin (From Neosporin Allergy BLISTERS Verified 12/29/24 10:45 ([id number])) neomycin (From Neosporin Allergy BLISTERS Verified 12/29/24 10:45 ([id number])) polymyxin B (From Neosporin Allergy BLISTERS Verified 12/29/24 10:45 ([id number])) PFSH Acute PFSH: Medical History Cigarette smoker motivated to quit Heavy cigarette smoker Alcohol use disorder, moderate, in sustained remission Major depressive disorder, recurrent severe without psychotic features Chronic post-traumatic stress disorder Generalized joint pain Lumbar spondylosis Spinal stenosis of lumbar region with radiculopathy Smoker Surgical History S/P tonsillectomy H/O spinal fusion 1998 [facility] C5-C6 DISCECTOMY/ FUSION/ FIXATION Status post carpal tunnel release of both wrists Status post delivery S/P excision of ganglion cyst S/P correction of deviated nasal septum Hx of foot surgery (~2017) RIGHT FOOT SURGERY POST WOUND NOT HEALING OSTEOMYLITIS Family History Father Cancer STOMACH CANCER Mother Dementia Other Heart disease Social History Smoking and tobacco/nicotine status: current every day tobacco/nicotine user cigarettes Years cigarettes smoked: 40 [ Other cigarette details: 1 PPD] Quit status (tobacco/nicotine): considering quitting Second hand smoke exposure: Yes Alcohol intake: current Alcohol intake frequency: holidays/special occasions only Substance/Drug Use: current Substance/Drug use frequency: few times a month Other substance/drug use details: smokes about once a week Adopted: No Caregiver/support person: No Lives independently: Yes Household members: none Housing: Apartment Marital status: Marital status details: since 2009 Number of children: 3 Number of grandchildren: 6 Highest education level completed: GED or Equivalent service: No Current occupational status: disabled Current occupational exposures/hazards: No Pets and animals: No Leisure activites: other Leisure activities details: TV and plant weinstein Sexually active: No Do you think of yourself as: Straight/Heterosexual Current gender identity: Female Celeste/Hinduism: Yazidism Special celeste needs: No Agree to transfusion: Yes Female Reproductive History: Para: 3 Spontaneous abortions: No Vitals/I&O/Wt Last Vital Signs Temp 97.8 F 02/11/25 11:28 Pulse 92 02/11/25 16:04 Resp 16 02/11/25 16:04 BP 118/58 02/11/25 15:55 Pulse Ox 98 02/11/25 16:11 O2 Del Method Nasal Cannula 02/11/25 16:11 O2 Flow Rate 2 02/11/25 16:11 02/11/25 02/11/25 02/11/25 06:59 14:59 22:59 Intake Total 31.667 / 31.667 Balance 31.667 / 31.667 Weight last 48 hrs Weight 95.254 kg Physical Exam Narrative: General: Lethargic, ill-appearing, AO x3 HEENT: PERRLA, pupils bilaterally equal and reactive, pallors not present Chest: Normal vesicular breath sounds, no added sounds, equal good air entry bilaterally CVS: S1-S2 regular, no murmurs, no tachycardia, no gallops, no rubs Abdomen: Soft, nontender, no organomegaly, bowel sounds present Neuro: No focal deficits, no facial deformity, AO x3, power 5/5 in all limbs Urinary Catheter Management: Silva: Cath Placed During This Visit: yes Urinary Catheter Date of Insertion: 02/11/25 Data 02/11/25 10:56 02/11/25 10:56 Micro: Microbiology 02/11/25 11:58 Blood Culture - Preliminary Blood SPECIMEN COLLECTED 02/11/25 11:48 Blood Culture - Preliminary Blood SPECIMEN COLLECTED Other data: Radiology Impressions Abdomen/Pelvis CT 02/11/25 11:34 IMPRESSION: 1. Mild renal enlargement with perinephric stranding and thickening along the pararenal fascia. No obstruction. Correlate for pyelonephritis or acute glomerulonephritis. 2. Increased attenuation within the gallbladder. Recommend RIGHT upper quadrant ultrasound. There is no adjacent inflammation. No bile duct dilatation. Stones or sludge may be present. 3. Normal appendix. 4. Silva catheter in a nondistended bladder. Chest X-Ray 02/11/25 11:34 IMPRESSION: Mild right basilar atelectasis or opacity. Gallbladder Ultrasound 02/11/25 11:34 IMPRESSION: 1. Mild sludge scattered throughout the gallbladder with a few tiny stones within the sludge. 2. No pericholecystic fluid or bile duct dilatation. Laboratory Results WBC 13.56 10^3/uL (3.29-11.43) H 02/11/25 10:56 RBC 4.47 10^6/uL (3.85-5.65) 02/11/25 10:56 Hgb 14.40 g/dL (11.27-16.99) 02/11/25 10:56 Hct 42.1 % (36-47) 02/11/25 10:56 MCV 94.2 fl (85-98) 02/11/25 10:56 MCH 32.2 pg (27-33) 02/11/25 10:56 MCHC 34.2 g/dL (30-55) 02/11/25 10:56 RDW 13.3 % (12.1-15.1) 02/11/25 10:56 Plt Count 83 10^3/cmm (157-399) L 02/11/25 10:56 MPV 13.4 fL (7.4-10.4) H 02/11/25 10:56 Neut % (Auto) 86.1 % 02/11/25 10:56 Lymph % (Auto) 6.0 % 02/11/25 10:56 [place] % (Auto) 4.4 % 02/11/25 10:56 Eos % (Auto) 0.9 % 02/11/25 10:56 Baso % (Auto) 0.9 % 02/11/25 10:56 Neut # (Auto) 11.68 10^3/uL (1.8-7.7) H 02/11/25 10:56 Lymph # (Auto) 0.8 10^3/uL (0.8-4.8) 02/11/25 10:56 [place] # (Auto) 0.6 10^3/uL (0.2-0.9) 02/11/25 10:56 Eos # (Auto) 0.1 10^3/uL (0.0-0.8) 02/11/25 10:56 Baso # (Auto) 0.1 10^3/uL (0.0-0.1) 02/11/25 10:56 Nucleated RBC % (auto) 0 % 02/11/25 10:56 Nucleated RBCs # 0.0 /100WBC 02/11/25 10:56 PT 14.50 SECONDS (12.1-14.9) 02/11/25 10:56 INR 1.06 (0.8-1.2) 02/11/25 10:56 Sodium 131 mmol/L (136-145) L 02/11/25 10:56 Potassium 3.8 mmol/L (3.5-5.1) 02/11/25 10:56 Chloride 90 mmol/L (98-107) L 02/11/25 10:56 Carbon Dioxide 26 mmol/L (22-29) 02/11/25 10:56 Anion Gap 18.8 (5-19) 02/11/25 10:56 BUN 46 mg/dL (6-20) H 02/11/25 10:56 Creatinine 4.1 mg/dL (0.5-0.9) H 02/11/25 10:56 GFR Calculation 11.3 mL/min (90-130) L 02/11/25 10:56 Glucose 108 mg/dL (65-115) 02/11/25 10:56 Calculated Osmolality 284 mOsm/kg (285-295) L 02/11/25 10:56 Lactic Acid 3.3 mmol/L (0.5-2.2) H 02/11/25 10:56 Lactic Acid (Sepsis) 2.2 mmol/L (0.5-2.2) 02/11/25 14:20 Calcium 8.5 mg/dL (8.5-10.5) 02/11/25 10:56 Total Bilirubin 3.6 mg/dL (0.15-1.2) H 02/11/25 10:56 AST 53 U/L (0-32) H 02/11/25 10:56 ALT 42 U/L (0-33) H 02/11/25 10:56 Alkaline Phosphatase 305 U/L (35-105) H 02/11/25 10:56 Total Protein 6.1 g/dL (6.6-8.7) L 02/11/25 10:56 Albumin 3.0 g/dL (3.5-5.2) L 02/11/25 10:56 Globulin 3.1 g/dL (1.3-4.6) 02/11/25 10:56 Lipase 17 U/L (13-60) 02/11/25 10:56 TSH 0.32 uIU/mL (0.27-4.20) 02/11/25 10:56 Urine Color Dark yellow (Yellow) A 02/11/25 12:35 Urine Appearance Cloudy (CLEAR) A 02/11/25 12:35 Urine pH 7 (5-7) 02/11/25 12:35 Ur Specific [place] 1.010 (1.005-1.030) 02/11/25 12:35 Urine Protein 3+ (Negative) H 02/11/25 12:35 Urine Glucose (UA) Norm (Normal) 02/11/25 12:35 Urine Ketones Negative (Negative) 02/11/25 12:35 Urine Blood 3+ (Negative) H 02/11/25 12:35 Urine Nitrate Negative (Negative) 02/11/25 12:35 Urine Bilirubin 1+ (Negative) H 02/11/25 12:35 Urine Urobilinogen 4 mg/dL (Negative) H 02/11/25 12:35 Ur Leukocyte Esterase 2+ (Negative) H 02/11/25 12:35 Urine RBC >100 /hpf (0-2) H 02/11/25 12:35 Urine WBC >100 /hpf (0-5) H 02/11/25 12:35 Ur Squamous Epith Cells 6-10 /hpf (0-5) 02/11/25 12:35 Amorphous Sediment Not Reportable 02/11/25 12:35 Urine Bacteria Exceeds /hpf (NONE) 02/11/25 12:35 Hyaline Casts 67.74 /lpf 02/11/25 12:35 Ethyl Alcohol < 10 mg/dL (0-10) 02/11/25 10:56 Hepatitis A IgM Ab Non-reactive (Nonreactive) 02/11/25 11:58 Hep Bs Antigen Non-reactive (Nonreactive) 02/11/25 11:58 Hep Bs Antibody < 3.5 (11.5-1000) L 02/11/25 11:58 Hep B Core Total Ab Non-reactive (Nonreactive) 02/11/25 11:58 Hepatitis C Antibody Non-reactive (Nonreactive) 02/11/25 11:58 A&P Assessment and plan (1) Pyelonephritis: (2) Hypotension: (3) Acute kidney injury: (4) Transaminitis: Plan 54-year-old lady presented to the hospital with chief complaints of being ill over the past 4 to 5 days. Labs are notable for ABDULAZIZ, transaminitis with elevated ALP, abdominal pain and hypotension upon arrival. UA positive however patient does not appear to have too many complaints pertaining to the urinary system. She denies any dysuria or increased frequency. However with clinical left flank tenderness cannot rule out the possibility of a pyelonephritis being the source of infection. With hypotension, leukocytosis concern for impending sepsis. She has received 3 L fluid bolus in the emergency room Capillary refill is currently normal. Will continue normal saline at 100 cc an hour Levophed to maintain MAP greater than 65 if needed. Currently blood pressure appears to have improved to 118/58 at the time of this assessment. Start empiric antibiotic coverage with piperacillin/tazobactam and vancomycin Blood culture obtained in the emergency room. Silva catheter to monitor accurate output. IV fluids to continue. Obtain CK to assess for rhabdomyolysis. Noted to have deranged LFTs with elevated T. bili, AST ALT and abnormal alkaline phosphatase. CT of the abdomen and pelvis and ultrasound of the gallbladder negative for any obvious obstruction or stones. Lipase normaal. Will obtain MRCP for further assessment and to definitively exclude cholangitis. DVT ppx: lovenox Full code PDMP PDMP Reviewed: Not Reviewed Attestations Medical Necessity Statement*: > 2 midnight stay will be needed for iv abx, cMRCP, IVF as above. Coding Level of Care Code Acute Code for Chg Fwd High MDM includes number and complexity of problems actively addressed during encounter, amount and/or complexity of data reviewed/ordered and described risk of complication, morbidity or mortality of management as documented Diagnoses Pyelonephritis N12 Hypotension I95.9 Acute kidney injury N17.9 Transaminitis R74.01
--- NOTE | 2025-02-11 18:47 | PC.NURSE ---
pt report taken from Christy at this time.
--- NOTE | 2025-02-11 20:29 | PC.RESP ---
In pt room to do neb but pt asked to be allowed to eat before neb. PT eating at this time.
--- NOTE | 2025-02-11 21:12 | PC.NURSE ---
report called to Luma SANCHEZ
--- NOTE | 2025-02-11 21:13 | PC.NURSE ---
pt o2 at 90%, RT put pt on 2L NC.
[2025-02-11] MEDS: sodium chloride 0.9% 1,000 ML 999 ML IV (22:12)
--- NOTE | 2025-02-11 22:12 | PC.NURSE ---
Patient arrived from ED, BP 76/54 automatic cuff and manual cuff 74/56. called and received orders for 1L bolus and if there is no improvement in BP transfer to ICU. Patient Alert and oriented c/o abdominal pain
[2025-02-11] MEDS: acetaminophen 325 mg Tablet 650 MG PO (23:33)
[2025-02-12] VITALS (71 sets, daily range): BP systolic 74–134; BP diastolic 56–93; PULSE 68–103; RESP 13–24; TEMP 36.4–36.7; O2SAT 84–99
[2025-02-12] MEDS: piperacillin-tazobactam 3.375 GM in sodium chloride 0.9% (plus) 50 ML IV ×2 (01:52→12:39)
[2025-02-12] MEDS: ipratropium-albuterol 3 mL Neb INHALATION ×5 (01:55→21:15)
--- NOTE | 2025-02-12 02:12 | XRR_ITS ---
PROCEDURE INFORMATION: Exam: XR Chest Exam date and time: 02/12/2025 2:38 AM Age: 54 years old Clinical indication: Cough and shortness of breath; New crackles in chest concern for fluid overload TECHNIQUE: Imaging protocol: Radiologic exam of the chest. Views: 1 view. COMPARISON: CR XR chest 1V portable [id number] 02/11/2025 10:38 AM FINDINGS: Lungs: Unremarkable. No consolidation. Pleural spaces: Unremarkable. No pleural effusion. No pneumothorax. Heart/Mediastinum: The heart is stable in size. Bones/joints: Unremarkable. XR/XR chest 1V portable [id number] IMPRESSION: No acute abnormality.
[2025-02-12] MEDS: midodrine 5 mg TABLET PO ×2 (02:25→03:24)
[2025-02-12 03:14] LABS: Basophils # 0.1 10^3/uL (0.0-0.1); Basophils % 0.8 %; Eosinophils # 0.1 10^3/uL (0.0-0.8); Eosinophils % 0.7 %; Hematocrit 36.8 % (36-47); Lymphocytes # 0.9 10^3/uL (0.8-4.8); Lymphocytes % 7.5 %; Mean Corpuscular HGB Conc 33.4 g/dL (30-55); Mean Corpuscular Volume 95.8 fl (85-98); Mean Platelet Volume 14.4 fL (7.4-10.4); Monocytes # 0.7 10^3/uL (0.2-0.9); Monocytes % 5.8 %; Neutrophils # 9.84 10^3/uL (1.8-7.7); Neutrophils % 84.1 %; Nucleated Red Blood Cells % 0.2 %; Platelet Count 61 10^3/cmm (157-399); Red Blood Count 3.84 10^6/uL (3.85-5.65); Red Cell Distribution Width 13.7 % (12.1-15.1)
[2025-02-12] MEDS: lactulose oral liq 20 gm/30 mL UDC 40 GM PO (03:24)
[2025-02-12 03:37] LABS: Alanine Aminotransferase 33 U/L (0-33); Albumin Level 2.5 g/dL (3.5-5.2); Alkaline Phosphatase 312 U/L (35-105); Anion Gap 17.9 (5-19); Aspartate Amino Transferase 40 U/L (0-32); Blood Urea Nitrogen 45 mg/dL (6-20); Calcium 7.2 mg/dL (8.5-10.5); Carbon Dioxide 20 mmol/L (22-29); Chloride 101 mmol/L (98-107); Creatinine Clr Calc Pharmacy 17.5182; Globulin 2.9 g/dL (1.3-4.6); Glomerular Filtration Rate 10.7 mL/min (90-130); Glucose 121 mg/dL (65-115); Magnesium 1.6 mg/dL (1.7-2.3); Osmolality Calculated 293 mOsm/kg (285-295); Potassium 3.9 mmol/L (3.5-5.1); Sodium 135 mmol/L (136-145); Total Bilirubin 3.7 mg/dL (0.15-1.2); Total Protein 5.4 g/dL (6.6-8.7)
[2025-02-12 03:49] LABS: Acinetobacter baumannii Not Detected (NOT DETECT); Bacteroides fragilis Not Detected (NOT DETECT); CTX-M Not Detected (NOT DETECT); Citrobacter Not Detected (NOT DETECT); Cronobacter sakazakii Not Detected (NOT DETECT); Enterobacter cloacae complex Not Detected (NOT DETECT); Enterobacter non cloacae Not Detected (NOT DETECT); Fusobacterium necrophorum Not Detected (NOT DETECT); Fusobacterium nucleatum Not Detected (NOT DETECT); Haemophilus influenzae Not Detected (NOT DETECT); IMP Resistance Gene Not Detected (NOT DETECT); KPC Resistance Gene Not Detected (NOT DETECT); Klebsiella pneumoniae group Not Detected (NOT DETECT); Morganella morganii Not Detected (NOT DETECT); NDM Resistance Gene Not Detected (NOT DETECT); Neisseria meningitidis Not Detected (NOT DETECT); OXA Resistance Gene Not Detected (NOT DETECT); Pan Candida Not Detected (NOT DETECT); Pan Gram-Positive Not Detected (NOT DETECT); Proteus mirabilis Not Detected (NOT DETECT); Pseudomonas aeruginosa Not Detected (NOT DETECT); Salmonella Not Detected (NOT DETECT); Serratia Not Detected (NOT DETECT); Serratia marcescens Not Detected (NOT DETECT); Stenotrophomonas maltophilia Not Detected (NOT DETECT); VIM Resistance Gene Not Detected (NOT DETECT)
--- NOTE | 2025-02-12 04:32 | PC.NURSE ---
0205- Notified Dr. Diaz for patient worsening wet cough and curse lung sounds. Patient did received 4L of IVF. REquesting CXR. BP 92/74 HR 103. Received orders to pause IVF and give 5 mg midodrine once. 0248- Notified Dr. Diaz CXR was done and that per patient she hasn't had a BM in weeks. MD to please orders. Received order to repeat BP and HR after midodrine administration. 0311- Notified Dr. Diaz BP is 74/63 map 66. MD to place orders for another 5mg midodrine and get manual BP. 0431-Obtained maunal BP getting 76/56. Notified MD of BP and that patient had critical labs regarding blood culture please see critical lab assessment. Received orders to check BP in 30 minutes then transfer to ICU.
[2025-02-12 04:36] LABS: Slide Review Slide Review Perform
--- NOTE | 2025-02-12 05:19 | PC.NURSE ---
Notified MD of BP 92/60 manually. Awaiting response. Patient resting bed at this time, questions answered.
--- NOTE | 2025-02-12 06:32 | PC.NURSE ---
0553- Received response regarding previous BP reading. Received orders to recheck BP both machine and manual. 0611- Machine reading 69/59 Manual reading 78/50's. Received orders to call a rapid. Rapid called at 0614. Staff at bedside includes this nurse (primary), Michaelle GIRON CSU, Olamide HS, Colten GIRON ICU, Chilo GIRON ER, Lucinda COLVIN MS, Guy RT, and Gloria Lab. Patient immediately transferred to ICU. Colten GIRON ICU starting levophed. Report given to BJ in person.
[2025-02-12] MEDS: budesonide 0.5 mg/2 mL Neb INHALATION ×2 (09:19→21:15)
[2025-02-12] MEDS: pantoprazole DR 40 mg Tablet PO (10:48)
[2025-02-12] MEDS: norepinephrine 4 MG/250 ML BAG 7.5 MG (11:49)
[2025-02-12 12:39] LABS: Vancomycin Trough 10.8 ug/mL (10-15)
[2025-02-12] MEDS: vancomycin 500 MG in sodium chloride 0.9% (plus) 100 ML 200 MG IV (13:50)
[2025-02-12] MEDS: sodium chloride 0.9% 1,000 ML 100 ML IV (14:22)
[2025-02-12] MEDS: heparin 5,000 unit/mL INJ 1 mL 5000 UNIT SUBCUT (14:22)
--- NOTE | 2025-02-12 15:14 | PM.TDS ---
Transfer Summary Providers Date of Admission: 02/11/25 14:05 Date of Discharge/Transfer: 02/12/25 Attending Provider at Admission: Stella Watson MD Attending Provider at Transfer: Stella Watson MD Primary Care Provider: Yobany Edouardno Transfer Plans: Anticipated date of transfer: 02/12/25. Diagnoses at Discharge Discharge Diagnosis (1) Pyelonephritis: Status: Acute (2) Hypotension: Status: Acute (3) Acute kidney injury: Status: Acute (4) Transaminitis: Status: Acute (5) Cholangitis: Status: Acute Reason for Visit Reason for Visit abd pain, nausea, sweating Hospital Course Hospital Course 54 year old female Who is presenting to the hospital on 02/11 with chief complaints of feeling generalized unwell over the last 4 to 5 days. She states she has been experiencing abdominal pain, located towards the left upper abdomen and then radiating inwards into the epigastric area. She has some tenderness over the epigastric region as well. Initially upon ER arrival she was hypotensive. She received 3 L fluids in the emergency room and was started on maintenance fluids afterwards. UA was positive and eventually culture is preliminary showing gram-negative rods. Overnight blood cultures were reported positive for E. coli, sensitivities are pending. Patient is currently on empiric treatment with piperacillin/tazobactam. Vancomycin was also initiated yesterday which has since been discontinued after blood culture results were obtained. Today she has been initiated on Levophed, currently at 4 mics. Patient was lethargic upon arrival, today her mentation is better. She had an ABDULAZIZ with creatinine at 4.1, trending today at 4.3. Urine output of 300 cc since admission. She is alert awake oriented and answer all questions. Initially clinical impression was that of pyelonephritis leading to bacteremia and septic shock, however she has also been noted to have deranged LFTs. T. bili at 3.6, AST ALT elevated in the 50s range, alkaline phosphatase at 300. Because of chief complaints of pain located in the epigastric region along with tenderness, clinical suspicion for cholangitis. Initially gallbladder ultrasound was performed yesterday which showed some gallbladder sludge and tiny stones. MRCP was performed today due to persisting concern for cholangitis. This shows diffuse periportal T2 signal abnormality along the intrahepatic ducts suspicious for cholangitis. Mild associated periportal edema. There were no gallbladder calculi. Normal CBD.There is mild gallbladder wall thickening presumed reactive from the cholangitis. With these findings concerned that patient needs an ERCP. We do not currently have the capability to perform ERCP at [facility] as we do not have any GI services. Patient is therefore being transferred to a higher center. Her other medical history is notable for COPD, chronic back pain. History of lumbar neurogenic claudication for which she underwent posterior fusion with instrumentation L3-S1. More recently she developed painful orthopedic hardware and underwent removal of removal of L3 screw on the right side and proximal sailaja from her spine on January 16, 2025. Her back wound has healed well overall. There is no drainage or other concerns for infection at the site at this present time. Physical Exam Narrative: General: No acute distress,ill apperaing, AO x3 HEENT: PERRLA, pupils bilaterally equal and reactive, pallors not present Chest: Normal vesicular breath sounds, no added sounds, equal good air entry bilaterally CVS: S1-S2 regular, no murmurs, no tachycardia, no gallops, no rubs Abdomen: Soft, nontender, no organomegaly, bowel sounds present Neuro: No focal deficits, no facial deformity, AO x3, power 5/5 in all limbs Urinary Catheter Management: Silva: Cath Placed During This Visit: yes Reason for Continuing Indwelling Catheter: Accurate Measurement of Urinary Output in Critically Ill Patients Urinary Catheter Date of Insertion: 02/11/25 TS Data Studies Completed and Pending Pending at discharge Category Date Time Status Blood Culture Stat Lab 02/11/25 11:48 Results Urine Culture Stat Lab 02/11/25 12:35 Results Completed Studies During Hospitalization Category Date Time Status CT abdomen renal stone [CT kidney stone 59844] Stat Cat Scan 02/11/25 11:34 Completed CXRP [XR chest 1V portable [id number]] Routine Exams 02/12/25 02:12 Completed XR chest 1V portable [id number] Stat Exams 02/11/25 11:34 Completed MR MRCP [id number] Routine MRI 02/12/25 17:41 Completed US gall bladder [id number] Stat Ultrasound 02/11/25 11:34 Completed Laboratory Last Values WBC 11.70 10^3/uL (3.29-11.43) H 02/12/25 03:05 RBC 3.84 10^6/uL (3.85-5.65) L 02/12/25 03:05 Hgb 12.30 g/dL (11.27-16.99) 02/12/25 03:05 Hct 36.8 % (36-47) 02/12/25 03:05 MCV 95.8 fl (85-98) 02/12/25 03:05 MCH 32.0 pg (27-33) 02/12/25 03:05 MCHC 33.4 g/dL (30-55) 02/12/25 03:05 RDW 13.7 % (12.1-15.1) 02/12/25 03:05 Plt Count 61 10^3/cmm (157-399) L 02/12/25 03:05 MPV 14.4 fL (7.4-10.4) H 02/12/25 03:05 Neut % (Auto) 84.1 % 02/12/25 03:05 Lymph % (Auto) 7.5 % 02/12/25 03:05 [place] % (Auto) 5.8 % 02/12/25 03:05 Eos % (Auto) 0.7 % 02/12/25 03:05 Baso % (Auto) 0.8 % 02/12/25 03:05 Neut # (Auto) 9.84 10^3/uL (1.8-7.7) H 02/12/25 03:05 Lymph # (Auto) 0.9 10^3/uL (0.8-4.8) 02/12/25 03:05 [place] # (Auto) 0.7 10^3/uL (0.2-0.9) 02/12/25 03:05 Eos # (Auto) 0.1 10^3/uL (0.0-0.8) 02/12/25 03:05 Baso # (Auto) 0.1 10^3/uL (0.0-0.1) 02/12/25 03:05 Nucleated RBC % (auto) 0.2 % 02/12/25 03:05 Nucleated RBCs # 0.0 /100WBC 02/12/25 03:05 PT 14.50 SECONDS (12.1-14.9) 02/11/25 10:56 INR 1.06 (0.8-1.2) 02/11/25 10:56 Sodium 135 mmol/L (136-145) L 02/12/25 03:05 Potassium 3.9 mmol/L (3.5-5.1) 02/12/25 03:05 Chloride 101 mmol/L (98-107) 02/12/25 03:05 Carbon Dioxide 20 mmol/L (22-29) L 02/12/25 03:05 Anion Gap 17.9 (5-19) 02/12/25 03:05 BUN 45 mg/dL (6-20) H 02/12/25 03:05 Creatinine 4.3 mg/dL (0.5-0.9) H 02/12/25 03:05 GFR Calculation 10.7 mL/min (90-130) L 02/12/25 03:05 Glucose 121 mg/dL (65-115) H 02/12/25 03:05 Calculated Osmolality 293 mOsm/kg (285-295) 02/12/25 03:05 Lactic Acid 3.3 mmol/L (0.5-2.2) H 02/11/25 10:56 Lactic Acid (Sepsis) 2.2 mmol/L (0.5-2.2) 02/11/25 14:20 Calcium 7.2 mg/dL (8.5-10.5) L 02/12/25 03:05 Magnesium 1.6 mg/dL (1.7-2.3) L 02/12/25 03:05 Total Bilirubin 3.7 mg/dL (0.15-1.2) H 02/12/25 03:05 AST 40 U/L (0-32) H 02/12/25 03:05 ALT 33 U/L (0-33) 02/12/25 03:05 Alkaline Phosphatase 312 U/L (35-105) H 02/12/25 03:05 Total Protein 5.4 g/dL (6.6-8.7) L 02/12/25 03:05 Albumin 2.5 g/dL (3.5-5.2) L 02/12/25 03:05 Globulin 2.9 g/dL (1.3-4.6) 02/12/25 03:05 Lipase 17 U/L (13-60) 02/11/25 10:56 TSH 0.32 uIU/mL (0.27-4.20) 02/11/25 10:56 Urine Color Dark yellow (Yellow) A 02/11/25 12:35 Urine Appearance Cloudy (CLEAR) A 02/11/25 12:35 Urine pH 7 (5-7) 02/11/25 12:35 Ur Specific [place] 1.010 (1.005-1.030) 02/11/25 12:35 Urine Protein 3+ (Negative) H 02/11/25 12:35 Urine Glucose (UA) Norm (Normal) 02/11/25 12:35 Urine Ketones Negative (Negative) 02/11/25 12:35 Urine Blood 3+ (Negative) H 02/11/25 12:35 Urine Nitrate Negative (Negative) 02/11/25 12:35 Urine Bilirubin 1+ (Negative) H 02/11/25 12:35 Urine Urobilinogen 4 mg/dL (Negative) H 02/11/25 12:35 Ur Leukocyte Esterase 2+ (Negative) H 02/11/25 12:35 Urine RBC >100 /hpf (0-2) H 02/11/25 12:35 Urine WBC >100 /hpf (0-5) H 02/11/25 12:35 Ur Squamous Epith Cells 6-10 /hpf (0-5) 02/11/25 12:35 Amorphous Sediment Not Reportable 02/11/25 12:35 Urine Bacteria Exceeds /hpf (NONE) 02/11/25 12:35 Hyaline Casts 67.74 /lpf 02/11/25 12:35 Vancomycin Trough 10.8 ug/mL (10-15) 02/12/25 12:08 Ethyl Alcohol < 10 mg/dL (0-10) 02/11/25 10:56 Hepatitis A IgM Ab Non-reactive (Nonreactive) 02/11/25 11:58 Hep Bs Antigen Non-reactive (Nonreactive) 02/11/25 11:58 Hep Bs Antibody < 3.5 (11.5-1000) L 02/11/25 11:58 Hep B Core Total Ab Non-reactive (Nonreactive) 02/11/25 11:58 Hepatitis C Antibody Non-reactive (Nonreactive) 02/11/25 11:58 Radiology Impressions Abdomen/Pelvis CT 02/11/25 11:34 IMPRESSION: 1. Mild renal enlargement with perinephric stranding and thickening along the pararenal fascia. No obstruction. Correlate for pyelonephritis or acute glomerulonephritis. 2. Increased attenuation within the gallbladder. Recommend RIGHT upper quadrant ultrasound. There is no adjacent inflammation. No bile duct dilatation. Stones or sludge may be present. 3. Normal appendix. 4. Silva catheter in a nondistended bladder. Gallbladder Ultrasound 02/11/25 11:34 IMPRESSION: 1. Mild sludge scattered throughout the gallbladder with a few tiny stones within the sludge. 2. No pericholecystic fluid or bile duct dilatation. Chest X-Ray 02/12/25 02:12 IMPRESSION: No acute abnormality. Cholangiopancreatography MRI 02/12/25 17:41 Impression: Exam is somewhat limited due to body habitus and breath-hold technique. 1. Diffuse periportal T2 signal abnormality along the intrahepatic ducts suspicious for cholangitis. Mild associated periportal edema. 2. No gallbladder calculi. Normal common bile duct 3. No hydronephrosis in either kidney. 4. No other acute findings. Recent Clincial Data Last Vital Signs Temp 98 F 02/12/25 08:15 Pulse 100 02/12/25 14:57 Resp 20 H 02/12/25 14:50 BP 131/89 02/12/25 13:30 Pulse Ox 87 L 02/12/25 14:50 O2 Del Method Nasal Cannula 02/12/25 09:10 O2 Flow Rate 2 02/12/25 09:10 Vital Signs Temp Pulse Resp BP Pulse Ox O2 Del Method O2 Flow Rate 02/12/25 14:57 100 02/12/25 14:50 98 20 H 87 L 02/12/25 13:30 94 14 131/89 02/12/25 13:00 93 20 H 107/77 02/12/25 12:30 94 18 100/69 02/12/25 12:00 86 13 78/59 02/12/25 11:30 93 21 H 113/78 02/12/25 11:00 93 14 83/61 02/12/25 10:34 97 16 02/12/25 09:30 98 16 100/69 94 02/12/25 09:25 100 02/12/25 09:10 101 H 18 96 Nasal Cannula 2 02/12/25 09:00 99 15 95 02/12/25 08:30 96 14 94/64 96 02/12/25 08:15 98 F 94 15 91/67 96 02/12/25 08:00 93 15 96/69 95 02/12/25 08:00 78/56 04/25 07:45 92 18 90/69 97 02/12/25 07:30 100 23 H 94/69 87 L 02/12/25 07:16 91 19 H 94/67 02/12/25 07:01 92 19 H 94/67 95 02/12/25 06:46 95 14 96/66 95 02/12/25 06:35 94 15 97/70 96 02/12/25 06:15 96 15 92/59 95 02/12/25 06:00 99 20 H 97/72 98 02/12/25 05:45 100 16 97/72 97 02/12/25 05:30 97 15 97/72 98 02/12/25 05:15 98 14 90/65 99 02/12/25 05:00 101 H 18 77/57 98 02/12/25 04:45 101 H 15 77/57 89 L 02/12/25 04:30 98 15 100/73 88 L 02/12/25 04:21 78/56 02/12/25 04:15 100 16 83/66 85 L 02/12/25 04:09 97 16 83/66 89 L Nasal Cannula 2 02/12/25 04:00 96 14 87/65 90 02/12/25 03:30 97 19 H 80/67 96 02/12/25 03:15 96 15 74/63 95 Intake & Output/Weight 02/10/25 02/11/25 02/12/25 02/13/25 06:59 06:59 06:59 06:59 Intake Total 5157.620 / 5157.620 1450 / 1450 Output Total 300 / 300 Balance 4857.620 / 4857.620 1450 / 1450 Weight 102.557 kg Vitals Last Vital Signs Temp 98 F 02/12/25 08:15 Pulse 100 02/12/25 14:57 Resp 20 H 02/12/25 14:50 BP 131/89 02/12/25 13:30 Pulse Ox 87 L 02/12/25 14:50 O2 Del Method Nasal Cannula 02/12/25 09:10 O2 Flow Rate 2 02/12/25 09:10 TS Medications Medications Acetaminophen (Acetaminophen 325 Mg Tablet) 650 mg PO Q6H PRN PRN Reason: Mild/Mod Pain Or Temp >/= 101 Last Admin: 02/11/25 23:33 Dose: 650 mg Albuterol/Ipratropium (Ipratropium-Albuterol 3 Ml Neb) 3 ml INHALATION Q6H.RESP [facility] Last Admin: 02/12/25 14:50 Dose: 3 ml Budesonide (Budesonide 0.5 Mg/2 Ml Neb) 0.5 mg INHALATION BID.RESPIRATORY [facility] Last Admin: 02/12/25 09:19 Dose: 0.5 mg Heparin Sodium (Porcine) (Heparin 5,000 Unit/Ml Inj 1 Ml) 5,000 unit SUBCUT Q12H [facility] Last Admin: 02/12/25 14:22 Dose: 5,000 unit Sodium Chloride (Sodium Chloride 0.9%) 1,000 mls @ 100 mls/hr IV .Q10H [facility] Last Admin: 02/12/25 14:22 Dose: 100 mls/hr Piperacillin Sod/Tazobactam (Sod 3.375 gm/ Sodium Chloride) 50 mls @ 12.5 mls/hr IV Q12H [facility] Last Admin: 02/12/25 12:39 Dose: 12.5 mls/hr Norepinephrine Bitartrate (Levophed) 4 mg in 250 mls @ 0 mls/hr IV .Q0M [facility]; Protocol Ondansetron HCl (Ondansetron 2 Mg/Ml Sdv 2 Ml) 4 mg IVP Q8H PRN PRN Reason: vomiting, or N/V if npo Pantoprazole Sodium (Pantoprazole Dr 40 Mg Tablet) 40 mg PO DAILY [facility] Last Admin: 02/12/25 10:48 Dose: 40 mg Discontinued Medications Albuterol/Ipratropium (Ipratropium-Albuterol 3 Ml Neb) 3 ml INHALATION Q6H [facility] Last Admin: 02/11/25 16:04 Dose: 3 ml Enoxaparin Sodium (Enoxaparin 40 Mg/0.4 Ml Syringe) 40 mg SUBCUT Q24H [facility] Last Admin: 02/11/25 16:20 Dose: 40 mg Enoxaparin Sodium (Enoxaparin 30 Mg/0.3 Ml Syringe) 30 mg SUBCUT Q24H [facility] Sodium Chloride (Sodium Chloride 0.9%) 2,857.62 mls @ 2,857.62 mls/hr 30 ml/kg infuse over 1 hr (2857.62 ml) IV .Q1H ONE Stop: 02/11/25 12:33 Last Infusion: 02/11/25 23:06 Dose: Infused Vancomycin HCl 1,000 mg/ (Sodium Chloride) 250 mls @ 250 mls/hr IV ONCE ONE; Protocol Stop: 02/11/25 12:33 Last Infusion: 02/11/25 23:06 Dose: Infused Piperacillin Sod/Tazobactam (Sod 3.375 gm/ Sodium Chloride) 50 mls @ 100 mls/hr IV ONCE ONE; Protocol Stop: 02/11/25 12:03 Last Infusion: 02/11/25 12:42 Dose: 0 mls/hr Norepinephrine Bitartrate (Levophed) 4 mg in 250 mls @ 0 mls/hr IV .Q0M PRICE; Protocol Piperacillin Sod/Tazobactam (Sod / Sodium Chloride) 50 mls @ 0 mls/hr [id number] CONT PRICE; Protocol Sodium Chloride (Sodium Chloride 0.9%) 1,000 mls @ 999 mls/hr IV .Q1H1M PRICE Stop: 02/11/25 23:15 Last Infusion: 02/11/25 23:20 Dose: Infused Sodium Chloride (Sodium Chloride 0.9% (100 Ml)) Confirm Administered Dose 100 mls @ as directed .ROUTE .STK-MED ONE Stop: 02/11/25 22:07 Last Admin: 02/11/25 23:08 Dose: Not Given Norepinephrine Bitartrate (Levophed) Confirm Administered Dose 4 mg in 250 mls @ as directed .ROUTE .STK-MED ONE Stop: 02/12/25 06:24 Last Admin: 02/12/25 11:49 Dose: 7.5 mls/hr Vancomycin HCl 500 mg/ Sodium (Chloride) 100 mls @ 200 mls/hr IV ONCE ONE Stop: 02/12/25 13:29 Last Infusion: 02/12/25 14:33 Dose: Infused Lactulose (Lactulose Oral Liq 20 Gm/30 Ml Udc) 40 gm PO ONCE ONE Stop: 02/12/25 02:49 Last Admin: 02/12/25 03:24 Dose: 40 gm Midodrine (Midodrine 5 Mg Tablet) 5 mg PO ONCE ONE Stop: 02/12/25 02:09 Last Admin: 02/12/25 02:25 Dose: 5 mg Midodrine (Midodrine 5 Mg Tablet) 5 mg PO ONCE ONE Stop: 02/12/25 03:14 Last Admin: 02/12/25 03:24 Dose: 5 mg Ondansetron HCl (Ondansetron 2 Mg/Ml Sdv 2 Ml) 4 mg IVP ONCE ONE Stop: 02/11/25 11:47 Last Admin: 02/11/25 12:23 Dose: 4 mg Vancomycin HCl (Vancomycin 1,000 Mg Sdv (Pharmacy Mix)) 0 mg XX PRN PRN PRN Reason: Pharmacy to Dose Allergies bacitracin (From Neosporin ([id number])) Allergy (Verified 12/29/24 10:45) BLISTERS neomycin (From Neosporin ([id number])) Allergy (Verified 12/29/24 10:45) BLISTERS polymyxin B (From Neosporin ([id number])) Allergy (Verified 12/29/24 10:45) BLISTERS Home Medications acetaminophen 500 mg tablet (Tylenol Extra Strength) 1,000 mg PO TID PRN Pain 12/03/19 [History Confirmed 02/11/25] diclofenac sodium 75 mg tablet,delayed release 75 mg PO BID pain 04/24/22 [History Confirmed 02/11/25] budesonide-formoterol HFA 160 mcg-4.5 mcg/actuation aerosol inhaler (Symbicort) 1 puff inhalation DAILY 01/22/24 [History Confirmed 02/11/25] naloxone 4 mg/actuation nasal spray (Narcan) 1 spray intranasal Q3M #2 ea 03/25/24 [Rx Confirmed 02/11/25] buspirone 5 mg tablet 5 mg PO DAILY 01/15/25 [History Confirmed 02/11/25] ipratropium 20 mcg-albuterol 100 mcg/actuation mist for inhalation (Combivent Respimat) 20 - 100 puff inhalation DAILY 01/15/25 [History Confirmed 02/11/25] oxycodone 10 mg tablet 10 mg PO Q4H PRN pain 7 days #40 tabs 01/28/25 [Rx Confirmed 02/11/25] albuterol sulfate 90 mcg/actuation aerosol inhaler (Ventolin HFA) 2 puff inhalation Q6H PRN Shortness Of Breath 02/11/25 [History Confirmed 02/11/25] duloxetine 60 mg capsule,delayed release 601 mg PO DAILY 02/11/25 [History Confirmed 02/11/25] hydrocodone 5 mg-acetaminophen 325 mg tablet 1 - 2 tab PO .Q4-6H PRN Pain 02/11/25 [History Confirmed 02/11/25] mupirocin 2 % topical ointment 1 applic topical BID PRN Skin Irritation 02/11/25 [History Confirmed 02/11/25] pregabalin 200 mg capsule 200 mg PO BID 02/11/25 [History Confirmed 02/11/25] trazodone 50 mg tablet 50 - 100 mg PO .bedtime PRN sleep 02/11/25 [History Confirmed 02/11/25] Discharge Plan Discharge Patient Disposition: Xfer Short-Term Hosp Condition: Stable Prescriptions: No Action acetaminophen [Tylenol Extra Strength] 500 mg tablet 1,000 mg PO TID PRN (Reason: Pain) budesonide-formoterol [Symbicort] 160-4.5 mcg/actuation HFA aerosol inhaler 1 puff inhalation DAILY diclofenac sodium 75 mg tablet,delayed release (DR/EC) 75 mg PO BID naloxone [Narcan] 4 mg/actuation spray,non-aerosol 1 spray intranasal Q3M Qty: 2 0RF Rx Instructions: spray 1 dose into ONE nostril; alternate nostrils w each dose until help arrives oxycodone 10 mg tablet 10 mg PO Q4H PRN (Reason: pain) 7 Days Qty: 40 0RF buspirone 5 mg tablet 5 mg PO DAILY Combivent Respimat 20-100 mcg/actuation mist 20 - 100 puff INHALATION DAILY mupirocin 2 % ointment 1 applic TOPICAL BID PRN (Reason: Skin Irritation) albuterol sulfate [Ventolin HFA] 90 mcg/actuation HFA aerosol inhaler 2 puff INHALATION Q6H PRN (Reason: Shortness Of Breath) duloxetine 60 mg capsule,delayed release(DR/EC) 601 mg PO DAILY pregabalin 200 mg capsule 200 mg PO BID trazodone 50 mg tablet 50 - 100 mg PO .bedtime PRN (Reason: sleep) hydrocodone-acetaminophen 5-325 mg tablet 1 - 2 tab PO .Q4-6H PRN (Reason: Pain) Referrals: Yobany Iverson [Primary Care Provider] - Transfer Attestations Time Spent in Transfer Care: greater than 30 min Quality Metrics Clinical Quality Measures [ No reported AMI, CVA or VTE this stay] Coding Level of Care Code Acute Code for Chg Fwd Diagnoses Pyelonephritis N12 Hypotension I95.9 Acute kidney injury N17.9 Transaminitis R74.01 Cholangitis K83.09
--- NOTE | 2025-02-12 17:41 | MR_ITS ---
WS: [id number] MRI/MRCP OF THE ABDOMEN WITHOUT GADOLINIUM ENHANCEMENT TECHNIQUE: Coronal T2 Fase BH, Axial T2 Fase BH, Axial T2 FS BH, Zxial 3D [place] BH, Axial DWI BH, 2D MRCP Radial BH, 3D MRCP (Resp) CLINICAL INFORMATION: evaluate for cholangitis COMPARISON: CT 02/11/2025 FINDINGS: Images are limited due to body habitus and breath-hold technique Diffuse fatty infiltration of the liver. Small esophageal hiatal hernia. Diffuse T2 signal abnormality along the intrahepatic ducts with periportal edema suspicious for cholangitis. RIGHT greater than LEFT perinephric edema similar to the prior CT. No hydronephrosis. Mild gallbladder wall thickening presumed reactive from the cholangitis. No visualized calculi. Normal common bile duct. Pancreas appears grossly normal considering limitations. No other acute findings MR/MR MRCP [id number] Impression: Exam is somewhat limited due to body habitus and breath-hold techni que. 1. Diffuse periportal T2 signal abnormality along the intrahepatic ducts suspi cious for cholangitis. Mild associated periportal edema. 2. No gallbladder calculi. Normal common bile duct 3. No hydronephrosis in either kidney. 4. No other acute findings.
[2025-02-13] VITALS (9 sets, daily range): BP systolic 93–127; BP diastolic 69–83; PULSE 89–95; RESP 11–17; TEMP 36.5–36.6; O2SAT 90–94
[2025-02-13] MEDS: piperacillin-tazobactam 3.375 GM in sodium chloride 0.9% (plus) 50 ML IV (01:10)
[2025-02-13] MEDS: sodium chloride 0.9% 1,000 ML 100 ML IV (01:10)
[2025-02-13] MEDS: heparin 5,000 unit/mL INJ 1 mL 5000 UNIT SUBCUT (01:11)
--- NOTE | 2025-02-13 02:33 | PC.NURSE ---
Pt sitting up in bed complaining of acid reflux. New telephone order for 55 mg GI cocktail PO one time per Dr. Diaz.
--- NOTE | 2025-02-13 02:37 | PC.NURSE ---
Pt sitting up in bed complaining of acid reflux. New telephone order for GI cocktail PO one time per Dr. Diaz.
[2025-02-13] MEDS: lidocaine 2% viscous 15 ML, aluminum-mag hydrox-simethicon 30 ML, sucralfate oral liq 1 GM PO (02:40)
[2025-02-13 04:18] LABS: Basophils # 0.1 10^3/uL (0.0-0.1); Basophils % 0.6 %; Eosinophils # 0.1 10^3/uL (0.0-0.8); Eosinophils % 0.6 %; Hematocrit 37.5 % (36-47); Lymphocytes # 1.2 10^3/uL (0.8-4.8); Lymphocytes % 7.5 %; Mean Corpuscular HGB Conc 33.3 g/dL (30-55); Mean Corpuscular Hemoglobin 31.7 pg (27-33); Mean Corpuscular Volume 95.2 fl (85-98); Monocytes # 1.1 10^3/uL (0.2-0.9); Monocytes % 6.9 %; Neutrophils # 13.33 10^3/uL (1.8-7.7); Neutrophils % 83.5 %; Nucleated Red Blood Cells % 0 %; Platelet Count 63 10^3/cmm (157-399); Red Blood Count 3.94 10^6/uL (3.85-5.65); Red Cell Distribution Width 14.1 % (12.1-15.1); White Blood Count 15.96 10^3/uL (3.29-11.43)
[2025-02-13 04:34] LABS: Alanine Aminotransferase 32 U/L (0-33); Albumin Level 2.5 g/dL (3.5-5.2); Alkaline Phosphatase 378 U/L (35-105); Anion Gap 16.5 (5-19); Aspartate Amino Transferase 37 U/L (0-32); Blood Urea Nitrogen 53 mg/dL (6-20); Calcium 7.6 mg/dL (8.5-10.5); Carbon Dioxide 23 mmol/L (22-29); Chloride 101 mmol/L (98-107); Globulin 3.1 g/dL (1.3-4.6); Glomerular Filtration Rate 8.8 mL/min (90-130); Glucose 108 mg/dL (65-115); Osmolality Calculated 299 mOsm/kg (285-295); Potassium 3.5 mmol/L (3.5-5.1); Sodium 137 mmol/L (136-145); Total Protein 5.6 g/dL (6.6-8.7)
[2025-02-13 04:47] LABS: Slide Review Slide Review Perform
--- NOTE | 2025-02-13 07:30 | PC.NURSE ---
Called [facility] transfer center. Room S299 assigned. Further updates given to Olamide at [facility]. All questions answered.
--- NOTE | 2025-02-13 08:30 | PC.NURSE ---
Pt discharged/transferred to [facility]. In care of Ambulance crew
--- NOTE | 2025-02-13 09:09 | PM.TDS ---
Transfer Summary Providers Date of Admission: 02/11/25 14:05 Date of Discharge/Transfer: 02/13/25 Attending Provider at Admission: Stella Watson MD Attending Provider at Transfer: Stella Watson MD Primary Care Provider: Yobany Edouardno Transfer Plans: Anticipated date of transfer: 02/13/25. Diagnoses at Discharge Discharge Diagnosis (1) Pyelonephritis: Status: Acute (2) Hypotension: Status: Acute (3) Acute kidney injury: Status: Acute (4) Transaminitis: Status: Acute (5) Cholangitis: Status: Acute Reason for Visit Reason for Visit abd pain, nausea, sweating Hospital Course Hospital Course 54 year old female Who is presenting to the hospital on 02/11 with chief complaints of feeling generalized unwell over the last 4 to 5 days. She states she has been experiencing abdominal pain, located towards the left upper abdomen and then radiating inwards into the epigastric area. She has some tenderness over the epigastric region as well. Initially upon ER arrival she was hypotensive. She received 3 L fluids in the emergency room and was started on maintenance fluids afterwards. UA was positive and eventually culture is preliminary showing gram-negative rods. Overnight blood cultures were reported positive for E. coli, sensitivities are pending. Patient is currently on empiric treatment with piperacillin/tazobactam. Vancomycin was also initiated yesterday which has since been discontinued after blood culture results were obtained. Today she has been initiated on Levophed, currently at 4 mics. Patient was lethargic upon arrival, today her mentation is better. She had an ABDULAZIZ with creatinine at 4.1, trending today at 4.3. Urine output of 300 cc since admission. She is alert awake oriented and answer all questions. Initially clinical impression was that of pyelonephritis leading to bacteremia and septic shock, however she has also been noted to have deranged LFTs. T. bili at 3.6, AST ALT elevated in the 50s range, alkaline phosphatase at 300. Because of chief complaints of pain located in the epigastric region along with tenderness, clinical suspicion for cholangitis. Initially gallbladder ultrasound was performed yesterday which showed some gallbladder sludge and tiny stones. MRCP was performed today due to persisting concern for cholangitis. This shows diffuse periportal T2 signal abnormality along the intrahepatic ducts suspicious for cholangitis. Mild associated periportal edema. There were no gallbladder calculi. Normal CBD.There is mild gallbladder wall thickening presumed reactive from the cholangitis. With these findings concerned that patient needs an ERCP. We do not currently have the capability to perform ERCP at [facility] as we do not have any GI services. Patient is therefore being transferred to a higher center. Her other medical history is notable for COPD, chronic back pain. History of lumbar neurogenic claudication for which she underwent posterior fusion with instrumentation L3-S1. More recently she developed painful orthopedic hardware and underwent removal of removal of L3 screw on the right side and proximal sailaja from her spine on January 16, 2025. Her back wound has healed well overall. There is no drainage or other concerns for infection at the site at this present time. Overnight hospitalist was able to call additional places and patient received a bed at [facility]. She transferred via EMS early in the am prior to my rounds. Physical Exam Urinary Catheter Management: Silva: Cath Placed During This Visit: yes Reason for Continuing Indwelling Catheter: Accurate Measurement of Urinary Output in Critically Ill Patients Urinary Catheter Date of Insertion: 02/11/25 TS Data Studies Completed and Pending Pending at discharge Category Date Time Status Blood Culture AM LABS Lab 02/13/25 04:09 Results Blood Culture Stat Lab 02/11/25 11:48 Results Urine Culture Stat Lab 02/11/25 12:35 Results Completed Studies During Hospitalization Category Date Time Status CT abdomen renal stone [CT kidney stone [id number]] Stat Cat Scan 02/11/25 11:34 Completed CXRP [XR chest 1V portable [id number]] Routine Exams 02/12/25 02:12 Completed XR chest 1V portable [id number] Stat Exams 02/11/25 11:34 Completed MR MRCP [id number] Routine MRI 02/12/25 17:41 Completed US gall bladder [id number] Stat Ultrasound 02/11/25 11:34 Completed Laboratory Last Values WBC 15.96 10^3/uL (3.29-11.43) H 02/13/25 04:05 RBC 3.94 10^6/uL (3.85-5.65) 02/13/25 04:05 Hgb 12.50 g/dL (11.27-16.99) 02/13/25 04:05 Hct 37.5 % (36-47) 02/13/25 04:05 MCV 95.2 fl (85-98) 02/13/25 04:05 MCH 31.7 pg (27-33) 02/13/25 04:05 MCHC 33.3 g/dL (30-55) 02/13/25 04:05 RDW 14.1 % (12.1-15.1) 02/13/25 04:05 Plt Count 63 10^3/cmm (157-399) L 02/13/25 04:05 MPV 14.0 fL (7.4-10.4) H 02/13/25 04:05 Neut % (Auto) 83.5 % 02/13/25 04:05 Lymph % (Auto) 7.5 % 02/13/25 04:05 [place] % (Auto) 6.9 % 02/13/25 04:05 Eos % (Auto) 0.6 % 02/13/25 04:05 Baso % (Auto) 0.6 % 02/13/25 04:05 Neut # (Auto) 13.33 10^3/uL (1.8-7.7) H 02/13/25 04:05 Lymph # (Auto) 1.2 10^3/uL (0.8-4.8) 02/13/25 04:05 [place] # (Auto) 1.1 10^3/uL (0.2-0.9) H 02/13/25 04:05 Eos # (Auto) 0.1 10^3/uL (0.0-0.8) 02/13/25 04:05 Baso # (Auto) 0.1 10^3/uL (0.0-0.1) 02/13/25 04:05 Nucleated RBC % (auto) 0 % 02/13/25 04:05 Nucleated RBCs # 0.0 /100WBC 02/13/25 04:05 PT 14.50 SECONDS (12.1-14.9) 02/11/25 10:56 INR 1.06 (0.8-1.2) 02/11/25 10:56 Sodium 137 mmol/L (136-145) 02/13/25 04:05 Potassium 3.5 mmol/L (3.5-5.1) 02/13/25 04:05 Chloride 101 mmol/L (98-107) 02/13/25 04:05 Carbon Dioxide 23 mmol/L (22-29) 02/13/25 04:05 Anion Gap 16.5 (5-19) 02/13/25 04:05 BUN 53 mg/dL (6-20) H 02/13/25 04:05 Creatinine 5.1 mg/dL (0.5-0.9) H 02/13/25 04:05 GFR Calculation 8.8 mL/min (90-130) L 02/13/25 04:05 Glucose 108 mg/dL (65-115) 02/13/25 04:05 Calculated Osmolality 299 mOsm/kg (285-295) H 02/13/25 04:05 Lactic Acid 3.3 mmol/L (0.5-2.2) H 02/11/25 10:56 Lactic Acid (Sepsis) 2.2 mmol/L (0.5-2.2) 02/11/25 14:20 Calcium 7.6 mg/dL (8.5-10.5) L 02/13/25 04:05 Magnesium 1.6 mg/dL (1.7-2.3) L 02/12/25 03:05 Total Bilirubin 5.0 mg/dL (0.15-1.2) H 02/13/25 04:05 AST 37 U/L (0-32) H 02/13/25 04:05 ALT 32 U/L (0-33) 02/13/25 04:05 Alkaline Phosphatase 378 U/L (35-105) H 02/13/25 04:05 Total Protein 5.6 g/dL (6.6-8.7) L 02/13/25 04:05 Albumin 2.5 g/dL (3.5-5.2) L 02/13/25 04:05 Globulin 3.1 g/dL (1.3-4.6) 02/13/25 04:05 Lipase 17 U/L (13-60) 02/11/25 10:56 TSH 0.32 uIU/mL (0.27-4.20) 02/11/25 10:56 Urine Color Dark yellow (Yellow) A 02/11/25 12:35 Urine Appearance Cloudy (CLEAR) A 02/11/25 12:35 Urine pH 7 (5-7) 02/11/25 12:35 Ur Specific [place] 1.010 (1.005-1.030) 02/11/25 12:35 Urine Protein 3+ (Negative) H 02/11/25 12:35 Urine Glucose (UA) Norm (Normal) 02/11/25 12:35 Urine Ketones Negative (Negative) 02/11/25 12:35 Urine Blood 3+ (Negative) H 02/11/25 12:35 Urine Nitrate Negative (Negative) 02/11/25 12:35 Urine Bilirubin 1+ (Negative) H 02/11/25 12:35 Urine Urobilinogen 4 mg/dL (Negative) H 02/11/25 12:35 Ur Leukocyte Esterase 2+ (Negative) H 02/11/25 12:35 Urine RBC >100 /hpf (0-2) H 02/11/25 12:35 Urine WBC >100 /hpf (0-5) H 02/11/25 12:35 Ur Squamous Epith Cells 6-10 /hpf (0-5) 02/11/25 12:35 Amorphous Sediment Not Reportable 02/11/25 12:35 Urine Bacteria Exceeds /hpf (NONE) 02/11/25 12:35 Hyaline Casts 67.74 /lpf 02/11/25 12:35 Vancomycin Trough 10.8 ug/mL (10-15) 02/12/25 12:08 Ethyl Alcohol < 10 mg/dL (0-10) 02/11/25 10:56 Hepatitis A IgM Ab Non-reactive (Nonreactive) 02/11/25 11:58 Hep Bs Antigen Non-reactive (Nonreactive) 02/11/25 11:58 Hep Bs Antibody < 3.5 (11.5-1000) L 02/11/25 11:58 Hep B Core Total Ab Non-reactive (Nonreactive) 02/11/25 11:58 Hepatitis C Antibody Non-reactive (Nonreactive) 02/11/25 11:58 Radiology Impressions Abdomen/Pelvis CT 02/11/25 11:34 IMPRESSION: 1. Mild renal enlargement with perinephric stranding and thickening along the pararenal fascia. No obstruction. Correlate for pyelonephritis or acute glomerulonephritis. 2. Increased attenuation within the gallbladder. Recommend RIGHT upper quadrant ultrasound. There is no adjacent inflammation. No bile duct dilatation. Stones or sludge may be present. 3. Normal appendix. 4. Silva catheter in a nondistended bladder. Gallbladder Ultrasound 02/11/25 11:34 IMPRESSION: 1. Mild sludge scattered throughout the gallbladder with a few tiny stones within the sludge. 2. No pericholecystic fluid or bile duct dilatation. Chest X-Ray 02/12/25 02:12 IMPRESSION: No acute abnormality. Cholangiopancreatography MRI 02/12/25 17:41 Impression: Exam is somewhat limited due to body habitus and breath-hold technique. 1. Diffuse periportal T2 signal abnormality along the intrahepatic ducts suspicious for cholangitis. Mild associated periportal edema. 2. No gallbladder calculi. Normal common bile duct 3. No hydronephrosis in either kidney. 4. No other acute findings. Recent Clincial Data Last Vital Signs Temp 97.7 F 02/13/25 08:27 Pulse 91 02/13/25 08:27 Resp 11 L 02/13/25 08:27 BP 93/69 02/13/25 08:27 Pulse Ox 94 02/13/25 08:27 O2 Del Method Room Air 02/13/25 07:30 O2 Flow Rate 2 02/13/25 02:00 Vital Signs Temp Pulse Resp BP Pulse Ox O2 Del Method O2 Flow Rate 02/13/25 08:27 97.7 F 91 11 L 93/69 94 02/13/25 07:42 97.7 F 93 12 93/69 02/13/25 07:30 97.7 F 93 12 93/69 90 Room Air 02/13/25 07:00 91 15 101/80 92 Room Air 02/13/25 06:00 89 02/13/25 04:05 97.8 F 02/13/25 02:00 95 17 94 Nasal Cannula 2 02/13/25 00:30 93 15 110/77 91 Room Air 02/13/25 00:00 94 12 127/83 91 Room Air 02/12/25 23:30 95 16 127/83 91 Room Air 02/12/25 23:00 96 14 97/66 90 Room Air 02/12/25 22:30 96 16 97/66 90 Room Air 02/12/25 22:00 96 17 129/74 91 Room Air 02/12/25 22:00 96 02/12/25 21:30 97 13 129/74 91 Room Air 02/12/25 21:22 98 02/12/25 21:16 99 17 92 Room Air Intake & Output/Weight 02/11/25 02/12/25 02/13/25 02/14/25 06:59 06:59 06:59 06:59 Intake Total 5157.620 / 5157.620 2900 / 2900 Output Total 300 / 300 500 / 500 Balance 4857.620 / 4857.620 2400 / 2400 Weight 102.557 kg 102.7 kg Vitals Last Vital Signs Temp 97.7 F 02/13/25 08:27 Pulse 91 02/13/25 08:27 Resp 11 L 02/13/25 08:27 BP 93/69 02/13/25 08:27 Pulse Ox 94 02/13/25 08:27 O2 Del Method Room Air 02/13/25 07:30 O2 Flow Rate 2 02/13/25 02:00 TS Medications Medications Discontinued Medications Acetaminophen (Acetaminophen 325 Mg Tablet) 650 mg PO Q6H PRN PRN Reason: Mild/Mod Pain Or Temp >/= 101 Last Admin: 02/11/25 23:33 Dose: 650 mg Albuterol/Ipratropium (Ipratropium-Albuterol 3 Ml Neb) 3 ml INHALATION Q6H PRICE Last Admin: 02/11/25 16:04 Dose: 3 ml Albuterol/Ipratropium (Ipratropium-Albuterol 3 Ml Neb) 3 ml INHALATION Q6H.RESP PRICE Last Admin: 02/13/25 08:19 Dose: Not Given Budesonide (Budesonide 0.5 Mg/2 Ml Neb) 0.5 mg INHALATION BID.RESPIRATORY PRICE Last Admin: 02/13/25 08:19 Dose: Not Given Lidocaine HCl 15 ml/ Al Hydrox /Mg Hydrox/Simethicone 30 ml/Sucralfate 1 gm 0 ml PO ONCE ONE Stop: 02/13/25 02:33 Last Admin: 02/13/25 02:40 Dose: 55 suspension Enoxaparin Sodium (Enoxaparin 40 Mg/0.4 Ml Syringe) 40 mg SUBCUT Q24H PRICE Last Admin: 02/11/25 16:20 Dose: 40 mg Enoxaparin Sodium (Enoxaparin 30 Mg/0.3 Ml Syringe) 30 mg SUBCUT Q24H PRICE Heparin Sodium (Porcine) (Heparin 5,000 Unit/Ml Inj 1 Ml) 5,000 unit SUBCUT Q12H PRICE Last Admin: 02/13/25 01:11 Dose: 5,000 unit Sodium Chloride (Sodium Chloride 0.9%) 2,857.62 mls @ 2,857.62 mls/hr 30 ml/kg infuse over 1 hr (2857.62 ml) IV .Q1H ONE Stop: 02/11/25 12:33 Last Infusion: 02/11/25 23:06 Dose: Infused Vancomycin HCl 1,000 mg/ (Sodium Chloride) 250 mls @ 250 mls/hr IV ONCE ONE; Protocol Stop: 02/11/25 12:33 Last Infusion: 02/11/25 23:06 Dose: Infused Piperacillin Sod/Tazobactam (Sod 3.375 gm/ Sodium Chloride) 50 mls @ 100 mls/hr IV ONCE ONE; Protocol Stop: 02/11/25 12:03 Last Infusion: 02/11/25 12:42 Dose: 0 mls/hr Sodium Chloride (Sodium Chloride 0.9%) 1,000 mls @ 100 mls/hr IV .Q10H [facility] Last Admin: 02/13/25 01:10 Dose: 100 mls/hr Norepinephrine Bitartrate (Levophed) 4 mg in 250 mls @ 0 mls/hr IV .Q0M PRICE; Protocol Piperacillin Sod/Tazobactam (Sod / Sodium Chloride) 50 mls @ 0 mls/hr [id number] PRICE; Protocol Piperacillin Sod/Tazobactam (Sod 3.375 gm/ Sodium Chloride) 50 mls @ 12.5 mls/hr IV Q12H [facility] Last Infusion: 02/13/25 05:40 Dose: Infused Sodium Chloride (Sodium Chloride 0.9%) 1,000 mls @ 999 mls/hr IV .Q1H1M PRICE Stop: 02/11/25 23:15 Last Infusion: 02/11/25 23:20 Dose: Infused Sodium Chloride (Sodium Chloride 0.9% (100 Ml)) Confirm Administered Dose 100 mls @ as directed .ROUTE .ST-MED ONE Stop: 02/11/25 22:07 Last Admin: 02/11/25 23:08 Dose: Not Given Norepinephrine Bitartrate (Levophed) Confirm Administered Dose 4 mg in 250 mls @ as directed .ROUTE .STK-MED ONE Stop: 02/12/25 06:24 Last Admin: 02/12/25 11:49 Dose: 7.5 mls/hr Norepinephrine Bitartrate (Levophed) 4 mg in 250 mls @ 0 mls/hr IV .Q0M PRICE; Protocol Vancomycin HCl 500 mg/ Sodium (Chloride) 100 mls @ 200 mls/hr IV ONCE ONE Stop: 02/12/25 13:29 Last Infusion: 02/12/25 14:33 Dose: Infused Lactulose (Lactulose Oral Liq 20 Gm/30 Ml Udc) 40 gm PO ONCE ONE Stop: 02/12/25 02:49 Last Admin: 02/12/25 03:24 Dose: 40 gm Meropenem (Meropenem 1,000 Mg Sdv) 1,000 mg IVP Q24H PRICE Midodrine (Midodrine 5 Mg Tablet) 5 mg PO ONCE ONE Stop: 02/12/25 02:09 Last Admin: 02/12/25 02:25 Dose: 5 mg Midodrine (Midodrine 5 Mg Tablet) 5 mg PO ONCE ONE Stop: 02/12/25 03:14 Last Admin: 02/12/25 03:24 Dose: 5 mg Ondansetron HCl (Ondansetron 2 Mg/Ml Sdv 2 Ml) 4 mg IVP ONCE ONE Stop: 02/11/25 11:47 Last Admin: 02/11/25 12:23 Dose: 4 mg Ondansetron HCl (Ondansetron 2 Mg/Ml Sdv 2 Ml) 4 mg IVP Q8H PRN PRN Reason: vomiting, or N/V if npo Pantoprazole Sodium (Pantoprazole Dr 40 Mg Tablet) 40 mg PO DAILY [facility] Last Admin: 02/12/25 10:48 Dose: 40 mg Vancomycin HCl (Vancomycin 1,000 Mg Sdv (Pharmacy Mix)) 0 mg XX PRN PRN PRN Reason: Pharmacy to Dose Allergies bacitracin (From Neosporin ([id number])) Allergy (Verified 12/29/24 10:45) BLISTERS neomycin (From Neosporin ([id number])) Allergy (Verified 12/29/24 10:45) BLISTERS polymyxin B (From Neosporin ([id number])) Allergy (Verified 12/29/24 10:45) BLISTERS Home Medications acetaminophen 500 mg tablet (Tylenol Extra Strength) 1,000 mg PO TID PRN Pain 12/03/19 [History Confirmed 02/11/25] diclofenac sodium 75 mg tablet,delayed release 75 mg PO BID pain 04/24/22 [History Confirmed 02/11/25] budesonide-formoterol HFA 160 mcg-4.5 mcg/actuation aerosol inhaler (Symbicort) 1 puff inhalation DAILY 01/22/24 [History Confirmed 02/11/25] naloxone 4 mg/actuation nasal spray (Narcan) 1 spray intranasal Q3M #2 ea 03/25/24 [Rx Confirmed 02/11/25] buspirone 5 mg tablet 5 mg PO DAILY 01/15/25 [History Confirmed 02/11/25] ipratropium 20 mcg-albuterol 100 mcg/actuation mist for inhalation (Combivent Respimat) 20 - 100 puff inhalation DAILY 01/15/25 [History Confirmed 02/11/25] oxycodone 10 mg tablet 10 mg PO Q4H PRN pain 7 days #40 tabs 01/28/25 [Rx Confirmed 02/11/25] albuterol sulfate 90 mcg/actuation aerosol inhaler (Ventolin HFA) 2 puff inhalation Q6H PRN Shortness Of Breath 02/11/25 [History Confirmed 02/11/25] duloxetine 60 mg capsule,delayed release 601 mg PO DAILY 02/11/25 [History Confirmed 02/11/25] hydrocodone 5 mg-acetaminophen 325 mg tablet 1 - 2 tab PO .Q4-6H PRN Pain 02/11/25 [History Confirmed 02/11/25] mupirocin 2 % topical ointment 1 applic topical BID PRN Skin Irritation 02/11/25 [History Confirmed 02/11/25] pregabalin 200 mg capsule 200 mg PO BID 02/11/25 [History Confirmed 02/11/25] trazodone 50 mg tablet 50 - 100 mg PO .bedtime PRN sleep 02/11/25 [History Confirmed 02/11/25] Discharge Plan Discharge Patient Disposition: Xfer Short-Term Hosp Condition: Stable Prescriptions: No Action acetaminophen [Tylenol Extra Strength] 500 mg tablet 1,000 mg PO TID PRN (Reason: Pain) budesonide-formoterol [Symbicort] 160-4.5 mcg/actuation HFA aerosol inhaler 1 puff inhalation DAILY diclofenac sodium 75 mg tablet,delayed release (DR/EC) 75 mg PO BID naloxone [Narcan] 4 mg/actuation spray,non-aerosol 1 spray intranasal Q3M Qty: 2 0RF Rx Instructions: spray 1 dose into ONE nostril; alternate nostrils w each dose until help arrives oxycodone 10 mg tablet 10 mg PO Q4H PRN (Reason: pain) 7 Days Qty: 40 0RF buspirone 5 mg tablet 5 mg PO DAILY Combivent Respimat 20-100 mcg/actuation mist 20 - 100 puff INHALATION DAILY mupirocin 2 % ointment 1 applic TOPICAL BID PRN (Reason: Skin Irritation) albuterol sulfate [Ventolin HFA] 90 mcg/actuation HFA aerosol inhaler 2 puff INHALATION Q6H PRN (Reason: Shortness Of Breath) duloxetine 60 mg capsule,delayed release(DR/EC) 601 mg PO DAILY pregabalin 200 mg capsule 200 mg PO BID trazodone 50 mg tablet 50 - 100 mg PO .bedtime PRN (Reason: sleep) hydrocodone-acetaminophen 5-325 mg tablet 1 - 2 tab PO .Q4-6H PRN (Reason: Pain) Referrals: Yobany Iverson [Primary Care Provider] - Transfer Attestations Time Spent in Transfer Care: greater than 30 min Quality Metrics Clinical Quality Measures [ No reported AMI, CVA or VTE this stay] Coding Level of Care Code Acute Code for Chg Fwd Diagnoses Pyelonephritis N12 Hypotension I95.9 Acute kidney injury N17.9 Transaminitis R74.01 Cholangitis K83.09
== END 2025-02-13 08:30 | disposition short-term general hospital (02) | DRG 690 ==
LOC: ER 11:49 → ER IP 14:05 → CSU 20:45 → ICU 02-12 06:21
PROVIDERS: Student in an Organized Health Care Education/Training Program; Admitting Provider Student in an Organized Health Care Education/Training Program; Emergency Provider Emergency Medicine; PCP Family Medicine; Visit Provider Student in an Organized Health Care Education/Training Program
DX: N10 Acute pyelonephritis (principal); K83.09 Other cholangitis; I95.9 Hypotension, unspecified; N17.9 Acute kidney failure, unspecified; R74.01 Elevation of levels of liver transaminase levels; F17.210 Nicotine dependence, cigarettes, uncomplicated; F32.9 Major depressive disorder, single episode, unspecified; J44.9 Chronic obstructive pulmonary disease, unspecified; G89.29 Other chronic pain; M54.9 Dorsalgia, unspecified; Z98.1 Arthrodesis status
CPT/HCPCS: 36415; 51702; 71045; 74176; 74181; 76705; 80053; 80202; 80307; 81001; 83605; 83690; 83735; 84443; 85025; 85610; 86705; 86706; 86709; 86803; 87040; 87077; 87086; 87150; 87186; 87205; 87340; 93005; 94640; 94664; 96365; 96366; 96367; 96372; 96375; 96376; 99285; A9270; J1644; J1650; J2405; J2543; J3370; J7030; J7050; J7626; J9999

== ENCOUNTER → 2025-03-31 16:05 | Outpatient (BNVA) | payer MEDICAID, SELFPAY | PROVIDERS: PCP Family Medicine; Visit Provider Orthopaedic Surgery | DX: M54.9 Dorsalgia, unspecified (principal); M48.062 Spinal stenosis, lumbar region with neurogenic claudication | CPT/HCPCS: 72100; 99024 ==

== ENCOUNTER 2025-04-07 08:30 | Oncology outpatient (recurring) (ONCR) | payer MEDICAID, SELFPAY ==
--- NOTE | 2025-04-07 08:30 | MR_ITS ---
WS: [id number] MRI LUMBAR SPINE NONCONTRAST TECHNIQUE: Sagittal T1, T2 and STIR imaging. Axial T1 and T2 imaging. CLINICAL INFORMATION: Back pain COMPARISON: MRI 2022 FINDINGS: Postoperative changes are new compared to previous. Pedicle screw fixation L4- S1. Pedicle screw removal at L3 with screw tracks. Sacroiliac fusion. Laminectomy defects in the lower lumbar spine. Central canal stenosis previously described at L4-5 has been decompressed. L1-L2: Mild facet arthropathy. Spinal canal and foramen are patent. L2-L3: Mild annular bulging. Mild central canal stenosis. Narrowing of the LEFT subarticular recess. Moderate facet arthropathy. Moderate LEFT foraminal narrowing. Impingement of the LEFT subarticular recess. L3-L4: Mild to moderate LEFT to RIGHT narrowing of the thecal sac. Moderate facet arthropathy. Moderate LEFT greater than RIGHT foraminal narrowing. L4-L5: Spinal canal has been decompressed. Moderate RIGHT bony foraminal narrowing. Mild LEFT bony foraminal narrowing. L5-S1: Spinal canal and foramen are patent. Visualized pelvic bony structures: Normal. Paravertebral soft tissues: Normal. Slightly aneurysmal infrarenal abdominal aorta measuring 2.6 x 2.5 cm with peripheral mural thrombus MR/MR lumbar spine wo con* [id number] IMPRESSION: 1. Central canal stenosis at L4-5 has been decompressed. 2. Postoperative changes pedicle screw fixation L4-S1 is new compared to previ ous. 3. Mild to moderate L3-4 LEFT to RIGHT narrowing of the thecal sac, just above the laminectomy defects. 4. Narrowing of the LEFT subarticular recess L2-3 with a LEFT subarticular pr otrusion appears progressed compared to previous. 5. Moderate LEFT L2-3 foraminal narrowing impinges the exiting LEFT L2 nerve r oot. This is also progressed. 6. Moderate LEFT L3-4 foraminal narrowing appears progressed. 7. Stable chronic moderate RIGHT L4-5 bony foraminal narrowing.
== END 2025-04-11 23:59 | disposition home or self-care (01) ==
LOC: ONCMED 09:38 → RAD 04-08 00:01 → ONCMED 04-08 10:18
PROVIDERS: PCP Family Medicine; Visit Provider Orthopaedic Surgery
DX: Z53.9 Procedure and treatment not carried out, unspecified reason (principal); M54.9 Dorsalgia, unspecified; M48.061 Spinal stenosis, lumbar region without neurogenic claudication; M48.00 Spinal stenosis, site unspecified
CPT/HCPCS: 72148; 99205

== ENCOUNTER 2025-04-12 14:48 | Inpatient (IN) | payer MEDICAID, SELFPAY ==
[2025-04-12] VITALS (23 sets, daily range): BP systolic 88–160; BP diastolic 57–119; PULSE 75–114; RESP 12–25; TEMP 36.2–37.3; O2SAT 74–100; BMI 31.4
--- NOTE | 2025-04-12 15:06 | ED_ITS ---
HPI - Weakness 2 General: Chief complaint: Weakness Stated complaint: NVD Time Seen by Provider: 04/12/25 15:06 History of Present Illness: 54-year-old female presents emergency ro om with shortness of breath fever complains of generalized pain particularly in her back she is on chronic narcotics for her back. No recent falls or trauma. Patient some mild dysuria urgency as well as some cough and shortness of breath. No focal abdominal pain at this time no flank pain. He has had nausea and vomiting no hematemesis no coffee-ground emesis. No specific chest pain Associated symptoms: Reports dysuria and nausea; Denies chest pain, chills, melena, fever(s) or vomiting Review of Systems 2 Const: Denies: fever(s) or chills Card: Denies: chest pain Resp: Reports: dyspnea, non-productive cough and chest congestion GI: Reports: abdominal pain and nausea; Denies: vomiting, hematemesis, coffee ground emesis, hematochezia or melena : Reports: dysuria, urinary frequency and urinary urgency; Denies: flank pain Musc: Denies: neck pain or back pain Skin/Breast: Denies: rash PFSH ED 2 PFSH: Medical History Cigarette smoker motivated to quit Heavy cigarette smoker Alcohol use disorder, moderate, in sustained remission Major depressive disorder, recurrent severe without psychotic features Chronic post-traumatic stress disorder Generalized joint pain Lumbar spondylosis Spinal stenosis of lumbar region with radiculopathy Smoker Surgical History S/P tonsillectomy H/O spinal fusion 1998 [facility] C5-C6 DISCECTOMY/ FUSION/ FIXATION Status post carpal tunnel release of both wrists Status post delivery S/P excision of ganglion cyst S/P correction of deviated nasal septum Hx of foot surgery (~2017) RIGHT FOOT SURGERY POST WOUND NOT HEALING OSTEOMYLITIS Family History Father Cancer STOMACH CANCER Mother Dementia Other Heart disease Social History Smoking and tobacco/nicotine status: current every day tobacco/nicotine user cigarettes Years cigarettes smoked: 40 [ Other cigarette details: 1 PPD] Quit status (tobacco/nicotine): considering quitting Second hand smoke exposure: Yes Alcohol intake: current Alcohol intake frequency: holidays/special occasions only Substance/Drug Use: current Substance/Drug use frequency: few times a month Other substance/drug use details: smokes about once a week Adopted: No Caregiver/support person: No Lives independently: Yes Household members: none Housing: Apartment Marital status: Marital status details: since 2009 Number of children: 3 Number of grandchildren: 6 Highest education level completed: GED or Equivalent service: No Current occupational status: disabled Current occupational exposures/hazards: No Pets and animals: No Leisure activites: other Leisure activities details: TV and plant weinstein Sexually active: No Do you think of yourself as: Straight/Heterosexual Current gender identity: Female Celeste/Spiritism: Buddhist Special celeste needs: No Agree to transfusion: Yes Female Reproductive History: Para: 3 Spontaneous abortions: No Physical Exam 2 Const: GENERAL APPEARANCE: cooperative ORIENTATION/CONSCIOUSNESS: Yes awake, Yes oriented to person, Yes oriented to place and Yes oriented to time HENMT: COMMON NORMALS: normocephalic, atraumatic and hearing grossly normal bilaterally HEAD & SCALP: normocephalic and atraumatic Resp: AUSCULTATION: rhonchi and wheezes Cardio: COMMON NORMALS: regular rate, regular rhythm and No murmurs present (Cardio) RATE: regular rate RHYTHM: regular rhythm GI: COMMON NORMALS: No hepatosplenomegaly present AUSCULTATION: Yes normoactive bowel sounds PALPATION: Yes Tenderness to palpation present (GI) (Generalized mild tenderness), No Guarding due to palpation present (GI) and Yes No hepatosplenomegaly present Extremity: COMMON NORMALS: normal to inspection, capillary refill normal, no clubbing, cyanosis or edema, no calf tenderness and no pedal edema Neuro: SENSORIUM/ORIENTATION: Yes oriented to person, Yes oriented to place and Yes oriented to time Skin: COMMON NORMALS: no rashes or lesions noted GENERAL SKIN EXAM: no rashes or lesions noted Course 2 Vital Signs: Vital signs: Vital Signs Temperature 98.7 F 04/13/25 04:00 Pulse Rate 83 04/13/25 05:30 Respiratory Rate 19 H 04/13/25 05:30 Blood Pressure 89/74 04/13/25 05:30 Pulse Oximetry 92 04/13/25 05:30 Oxygen Delivery Me thod Nasal Cannula 04/12/25 20:52 Oxygen Flow Rate 2 04/12/25 17:12 MDM - Weakness Medical Decision Making Right lower lobe pneumonia mild cystitis. Initially chest x-ray shows cystitis blood pressure decreased patient was given sepsis fluid bolus cultures done initially started on ceftriaxone and Zithromax based on pneumonia noted on chest x-ray. Mild cystitis as well. Discussed with hospitalist will admit to ICU due to hypotension with septic shock. Patient blood pressure does not improve will need to start on Levophed. Differential diagnosis includes pneumonia PE septicemia cystitis gastroenteritis viral infection COVID flu RSV cystitis nephrolithiasis Differential Diagnosis Likely anemia and sepsis Medical Records I reviewed the patient's medical records. Lab Data I reviewed the patient's lab results. 04/13/25 04:23 04/12/25 15:35 Radiology Impressions Chest X-Ray 04/12/25 15:50 IMPRESSION: As above. Chest/Abdomen/Pelvis CT 04/12/25 17:55 IMPRESSION: No acute findings. IMPRESSION: No acute findings. Laboratory Results WBC 12.71 10^3/uL (3.29-11.43) H 04/12/25 15:35 RBC 4.28 10^6/uL (3.85-5.65) 04/12/25 15:35 Hgb 13.20 g/dL (11.27-16.99) 04/12/25 15:35 Hct 40.2 % (36-47) 04/12/25 15:35 MCV 93.9 fl (85-98) 04/12/25 15:35 MCH 30.8 pg (27-33) 04/12/25 15:35 MCHC 32.8 g/dL (30-55) 04/12/25 15:35 RDW 14.1 % (12.1-15.1) 04/12/25 15:35 Plt Count 177 10^3/cmm (157-399) 04/12/25 15:35 MPV 12.6 fL (7.4-10.4) H 04/12/25 15:35 Neut % (Auto) 70.4 % 04/12/25 15:35 Lymph % (Auto) 20.9 % 04/12/25 15:35 [place] % (Auto) 7.2 % 04/12/25 15:35 Eos % (Auto) 0.6 % 04/12/25 15:35 Baso % (Auto) 0.6 % 04/12/25 15:35 Neut # (Auto) 8.94 10^3/uL (1.8-7.7) H 04/12/25 15:35 Lymph # (Auto) 2.7 10^3/uL (0.8-4.8) 04/12/25 15:35 [place] # (Auto) 0.9 10^3/uL (0.2-0.9) 04/12/25 15:35 Eos # (Auto) 0.1 10^3/uL (0.0-0.8) 04/12/25 15:35 Baso # (Auto) 0.1 10^3/uL (0.0-0.1) 04/12/25 15:35 Nucleated RBC % (auto) 0 % 04/12/25 15:35 Nucleated RBCs # 0.0 /100WBC 04/12/25 15:35 Sodium 134 mmol/L (136-145) L 04/12/25 15:35 Potassium 4.3 mmol/L (3.5-5.1) 04/12/25 15:35 Chloride 100 mmol/L (98-107) 04/12/25 15:35 Carbon Dioxide 22 mmol/L (22-29) 04/12/25 15:35 Anion Gap 16.3 (5-19) 04/12/25 15:35 BUN 11 mg/dL (6-20) 04/12/25 15:35 Creatinine 1.2 mg/dL (0.5-0.9) H 04/12/25 15:35 GFR Calculation 46.5 mL/min (90-130) L 04/12/25 15:35 Glucose 125 mg/dL (65-115) H 04/12/25 15:35 Calculated Osmolality 279 mOsm/kg (285-295) L 04/12/25 15:35 Lactic Acid 2.1 mmol/L (0.5-2.2) 04/12/25 15:35 Calcium 9.5 mg/dL (8.5-10.5) 04/12/25 15:35 Magnesium 1.7 mg/dL (1.7-2.3) 04/12/25 15:35 Total Bilirubin 0.3 mg/dL (0.15-1.2) 04/12/25 15:35 AST 11 U/L (0-32) 04/12/25 15:35 ALT 6 U/L (0-33) 04/12/25 15:35 Alkaline Phosphatase 98 U/L (35-105) 04/12/25 15:35 Troponin T Baseline 17 ng/L (0-10) H 04/12/25 15:35 Total Protein 7.8 g/dL (6.6-8.7) 04/12/25 15:35 Albumin 3.6 g/dL (3.5-5.2) 04/12/25 15:35 Globulin 4.2 g/dL (1.3-4.6) 04/12/25 15:35 Lipase 13 U/L (13-60) 04/12/25 15:35 Procalcitonin 0.56 ng/mL (0-0.5) H 04/12/25 15:35 TSH 0.67 uIU/mL (0.27-4.20) 04/12/25 15:35 Urine Color Yellow (Yellow) 04/12/25 17:18 Urine Appearance Clear (CLEAR) 04/12/25 17:18 Urine pH 6.5 (5-7) 04/12/25 17:18 Ur Specific Tok 1.004 (1.005-1.030) L 04/12/25 17:18 Urine Protein Negative (Negative) 04/12/25 17:18 Urine Glucose (UA) Negative (Normal) 04/12/25 17:18 Urine Ketones Negative (Negative) 04/12/25 17:18 Urine Blood Negative (Negative) 04/12/25 17:18 Urine Nitrate Negative (Negative) 04/12/25 17:18 Urine Bilirubin Negative (Negative) 04/12/25 17:18 Urine Urobilinogen 0.2 mg/dL (Negative) 04/12/25 17:18 Ur Leukocyte Esterase 1+ (Negative) A 04/12/25 17:18 Urine RBC 0-2 /hpf (0-2) 04/12/25 17:18 Urine WBC 11-20 /hpf (0-5) H 04/12/25 17:18 Ur Squamous Epith Cells 0-5 /hpf (0-5) 04/12/25 17:18 Amorphous Sediment Not Reportable 04/12/25 17:18 Urine Bacteria 4+ /hpf (NONE) H 04/12/25 17:18 Hyaline Casts 0.40 /lpf 04/12/25 17:18 Influenza A (PCR) Negative (Negative) 04/12/25 17:28 Influenza Type B (PCR) Negative (Negative) 04/12/25 17:28 RSV (PCR) Negative (Negative) 04/12/25 17:28 SARS-CoV-2 (PCR) Negative (Negative) 04/12/25 17:28 All radiology interpretation(s) finalized by discharge Discharge Plan Discharge Patient Disposition: Admitted As Inpatient Admit Provider: Сергей Aly Clinical Impression: Septic shock, Pneumonia, Cystitis Condition: Stable Coding Level of Care Code ED Pulling Unit Operator for Chg Fwd Related Data Home Medications ?Medication ?Instructions ?Recorded ?Confirmed acetaminophen 500 mg tablet 1,000 mg PO TID PRN Pain 0 12/03/19 03/31/25 (Tylenol Extra Strength) budesonide-formoterol HFA 160 1 puff inhalation DAILY 01/22/24 03/31/25 mcg-4.5 mcg/actuation aerosol inhaler (Symbicort) buspirone 5 mg tablet 5 mg PO DAILY 01/15/2503/31 ipratropium 20 mcg-albuterol 100 20 - 100 puff inhalat ion DAILY 01/15/25 03/31/25 mcg/actuation mist for inhalation (Combivent Respimat) albuterol sulfate 90 mcg/actuation 2 puff inhalation Q 6H PRN 02/11/25 03/31/25 aerosol inhaler (Ventolin HFA) Shortness Of Breath duloxetine 60 mg capsule,delayed 601 mg PO DAILY 02/1103/31/25 release mupirocin 2 % topical ointment 1 applic topical BID ME N Skin 02/11/25 03/31/25 Irritation pregabalin 200 mg capsule 200 mg PO BID 02/11/2503/31 trazodone 50 mg tablet 50 - 100 mg PO .bedtime PRN sleep 02/11/25 03/31/25 apixaban 5 mg tablet (Eliquis) 5 mg PO BID 03/25/25 Previous Rx's ?Medication ?Instructions ?Recorded naloxone 4 mg/actuation nasal 1 spray intranasal Q3M # 2 ea 03/25/24 spray (Narcan) oxycodone 10 mg tablet 10 mg PO Q4H PRN pain 7 days #40 01/28/25 tabs Allergies Allergy/AdvReac Type Severity Reaction Status Date / Time bacitracin (From Neosporin Allergy BLISTERS Verified 04/12/25 15:06 ([id number])) neomycin (From Neosporin Allergy BLISTERS Verified 04/12/25 15:06 ([id number])) polymyxin B (From Neosporin Allergy BLISTERS Verified 04/12/25 15:06 ([id number]))
[2025-04-12 15:40] LABS: Basophils # 0.1 10^3/uL (0.0-0.1); Basophils % 0.6 %; Eosinophils # 0.1 10^3/uL (0.0-0.8); Eosinophils % 0.6 %; Hematocrit 40.2 % (36-47); Lymphocytes # 2.7 10^3/uL (0.8-4.8); Lymphocytes % 20.9 %; Mean Corpuscular HGB Conc 32.8 g/dL (30-55); Mean Corpuscular Hemoglobin 30.8 pg (27-33); Mean Corpuscular Volume 93.9 fl (85-98); Mean Platelet Volume 12.6 fL (7.4-10.4); Monocytes # 0.9 10^3/uL (0.2-0.9); Monocytes % 7.2 %; Neutrophils # 8.94 10^3/uL (1.8-7.7); Neutrophils % 70.4 %; Nucleated Red Blood Cells % 0 %; Platelet Count 177 10^3/cmm (157-399); Red Blood Count 4.28 10^6/uL (3.85-5.65); Red Cell Distribution Width 14.1 % (12.1-15.1); White Blood Count 12.71 10^3/uL (3.29-11.43)
--- NOTE | 2025-04-12 15:50 | XRR_ITS ---
PROCEDURE INFORMATION: Exam: XR Chest Exam date and time: 04/12/2025 4:39 PM Age: 54 years old Clinical indication: Dyspnea; Additional info: Dyspnea/cough TECHNIQUE: Imaging protocol: Radiologic exam of the chest. Views: 1 view. COMPARISON: CR (CHEST, ) 02/12/2025 2:38 AM FINDINGS: Lungs: Subtle haziness to the right lower lobe. No lobar consolidation. Pleural spaces: Unremarkable. No pleural effusion. No pneumothorax. Heart/Mediastinum: Unremarkable. No cardiomegaly. Bones/joints: Unremarkable. XR/XR chest 1V portable [id number] IMPRESSION: As above.
[2025-04-12] MEDS: ondansetron 2 mg/ML SDV 2 mL 4 MG IVP (15:54)
[2025-04-12] MEDS: sodium chloride 0.9% 1,000 ML 999 ML IV ×2 (15:54→16:40)
[2025-04-12 15:55] LABS: Alanine Aminotransferase 6 U/L (0-33); Albumin Level 3.6 g/dL (3.5-5.2); Alkaline Phosphatase 98 U/L (35-105); Anion Gap 16.3 (5-19); Aspartate Amino Transferase 11 U/L (0-32); Blood Urea Nitrogen 11 mg/dL (6-20); Calcium 9.5 mg/dL (8.5-10.5); Carbon Dioxide 22 mmol/L (22-29); Chloride 100 mmol/L (98-107); Creatinine Clr Calc Pharmacy 58.6409; Globulin 4.2 g/dL (1.3-4.6); Glomerular Filtration Rate 46.5 mL/min (90-130); Glucose 125 mg/dL (65-115); Lipase 13 U/L (13-60); Magnesium 1.7 mg/dL (1.7-2.3); Osmolality Calculated 279 mOsm/kg (285-295); Potassium 4.3 mmol/L (3.5-5.1); Sodium 134 mmol/L (136-145); Total Bilirubin 0.3 mg/dL (0.15-1.2); Total Protein 7.8 g/dL (6.6-8.7)
[2025-04-12 16:22] LABS: Lactic Sepsis W/Reflex 2.1 mmol/L (0.5-2.2)
[2025-04-12 16:28] LABS: Reflex Lactate Order REFLEX LACTIC ORDERD
[2025-04-12] MEDS: cefTRIAXone 1,000 mg SDV 1000 MG IVP (17:20)
[2025-04-12] MEDS: AZITHROMYCIN ADD-Vantage 500 MG in 0.9% NaCl ADD-Vantage 250 ML 250 MG IV (17:24)
[2025-04-12 17:34] LABS: Bilirubin Urine Negative (Negative); Blood Urine Negative (Negative); Glucose Urine UA Negative (Normal); Ketones Urine Negative (Negative); Leukocyte Esterase Urine 1+ (Negative); Nitrate Urine Negative (Negative); Protein Urine Negative (Negative); Specific Gravity, Urine 1.004 (1.005-1.030); Urine Appearance Clear (CLEAR); Urine Color Yellow (Yellow); Urobilinogen Urine 0.2 mg/dL (Negative); pH Urine 6.5 (5-7)
[2025-04-12 17:39] LABS: Add Urine Microscopic? YES; Bacteria Urine 4+ /hpf; RBC Urine 0-2 /hpf (0-2); Squamous Epithelial Cell Urine 0-5 /hpf (0-5)
[2025-04-12 17:40] LABS: Add Urine Culture? Yes
--- NOTE | 2025-04-12 17:55 | CTR_ITS ---
PROCEDURE INFORMATION: Exam: CT Chest Without Contrast; Diagnostic Exam date and time: 04/12/2025 6:45 PM Age: 54 years old Clinical indication: Abnormal findings; Abnormal lab test; Elevated wbc; Other: N/a; Fever and shortness of breath and other: Hypotension; Prior surgery; Surgery date: 6+ months; Surgery type: Cervical fusion. Lumbosacral fusion. Csection; C/O SOB with nausea and fever. Patient hypotensive. Recent hospitalization for e. Coli. TECHNIQUE: Imaging protocol: Diagnostic computed tomography of the chest without contrast. Radiation optimization: All CT scans at this facility use at least one of these dose optimization techniques: automated exposure control; mA and/or kV adjustment per patient size (includes targeted exams where dose is matched to clinical indication); or iterative reconstruction. COMPARISON: CR (CHEST, ) 04/12/2025 4:39 PM RADIATION DOSE METRICS: Total DLP (mGy-cm): 1019.2 FINDINGS: Lungs: Centrilobular emphysema. Scattered peripheral interstitial scarring in both lungs. Calcified granulomas in the upper lobes. Mild dependent atelectasis in the lower lobes. No consolidation. Pleural spaces: Unremarkable. No pneumothorax. No pleural effusion. Heart: Unremarkable. No cardiomegaly. No pericardial effusion. Coronary arteries: Coronary artery calcifications. Lymph nodes: Calcified mediastinal and left hilar lymph nodes. Vasculature: Unremarkable. No aortic aneurysm. Bones/joints: Mild degenerative changes in the thoracic spine. No fracture. Soft tissues: Unremarkable. COMMENTS: The presence of pulmonary emphysema on CT is an independent risk factor for lung cancer. In the absence of a history or active diagnosis of lung cancer, it is recommended that this patient with emphysema be evaluated for enrollment in a low dose CT lung cancer screening program. PROCEDURE INFORMATION: Exam: CT Abdomen And Pelvis Without Contrast Exam date and time: 04/12/2025 6:45 PM Age: 54 years old Clinical indication: Abnormal findings; Abnormal lab test; Elevated wbc; Other: N/a; Fever and shortness of breath and other: Hypotension; Prior surgery; Surgery date: 6+ months; Surgery type: Cervical fusion. Lumbosacral fusion. Csection; C/O SOB with nausea and fever. Patient hypotensive. Recent hospitalization for e. Coli. TECHNIQUE: Imaging protocol: Computed tomography of the abdomen and pelvis without contrast. Radiation optimization: All CT scans at this facility use at least one of these dose optimization techniques: automated exposure control; mA and/or kV adjustment per patient size (includes targeted exams where dose is matched to clinical indication); or iterative reconstruction. COMPARISON: MR MRCP [id number] 02/12/2025 9:58 AM RADIATION DOSE METRICS: Total DLP (mGy-cm): 1019.2 FINDINGS: Liver: Normal. No mass. Gallbladder and biliary ducts: Normal. No calcified stones. No ductal dilation. Pancreas: Normal. No ductal dilation. Spleen: Calcified granulomas in the spleen. Adrenal glands: Normal. No mass. Kidneys and ureters: Normal. No hydronephrosis. Stomach and bowel: Mild diverticulosis of the distal colon. No diverticulitis. The stomach and small bowel are unremarkable. No wall thickening or obstruction. Appendix: The appendix is visualized and is normal. Intraperitoneal space: Unremarkable. No free air. No significant fluid collection. Vasculature: Calcified arterial plaque. Borderline aneurysmal dilatation of the infrarenal aorta measuring up to 3.0 cm. Lymph nodes: Unremarkable. No enlarged lymph nodes. Urinary bladder: Distended urinary bladder. No wall thickening. Reproductive: The uterus and ovaries are unremarkable. Bones/joints: Degenerative changes in the lumbar spine. Posterior mechanical fusion of L4-S1. Old L3 screw tracts. Screw fixation of the bilateral sacroiliac joints. L3-L5 decompressive laminectomies. No acute fracture. Soft tissues: Mild lumbar subcutaneous soft tissue edema and postsurgical scar. CT/[place] [id number] IMPRESSION: No acute findings. IMPRESSION: No acute findings.
--- NOTE | 2025-04-12 18:07 | PM.HP ---
Providers/Chief Complaint Primary Care Provider: Yobany Iverson Chief Complaint: NVD History of Present Illness Kailyn Jeffers is a 54 year old female with a past medical history of pulmonary embolism, on Eliquis, history of cardiac arrest/intubation,/respiratory failure secondary to septic shock and E. coli bacteremia, thrombocytopenia, current smoker, COPD, low back pain, who presents [facility] due to fatigue, malaise, fevers, chills, nausea, vomiting. Currently patient alert oriented x 3, following all commands, she tells me that for the last few days she has had fatigue, malaise, reported fevers, chills she had episode of nausea this morning, lightheadedness, she does report dysuria, no hematuria, no flank pain no history of kidney stones, does have a cough, does report smoking does report shortness of breath at times, recently she was Transferred rojas for E. coli bacteremia, she does not remember the details of her hospitalization but we will have to obtain records does report a cardiac arrest episode for 20 minutes, reports prolonged intubation for over 2 weeks, she denies any interventions such as stents placements in her kidneys, denies any ERCP or stent placement in her biliary tract but she is not exactly sure, we will have to request medical records Review of Systems Const: Reports: fever(s), chills, fatigue and malaise Card: Denies: chest pain Resp: Reports: dyspnea GI: Reports: abdominal pain, nausea and vomiting : Reports: difficulty voiding and dysuria; Denies: flank pain Medications/Allergies Home Medications ?Medication ?Instructions ?Recorded ?Confirmed ?Last Taken ?Type acetaminophen 500 mg tablet 1,000 mg PO TID PRN Pain 12/03/19 03/31/25 2 Weeks Ago History (Tylenol Extra Strength) ~01/02/25 budesonide-formoterol HFA 160 1 puff inhalation DAILY 01/22/24 03/31/25 02/08/25 History mcg-4.5 mcg/actuation aerosol inhaler (Symbicort) naloxone 4 mg/actuation nasal 1 spray intranasal Q3M #2 ea 03/25/24 03/31/25 Unknown Rx spray (Narcan) buspirone 5 mg tablet 5 mg PO DAILY 01/15/25 03/31/25 02/08/25 History ipratropium 20 mcg-albuterol 100 20 - 100 puff inhalation DAILY 01/15/25 03/31/25 02/08/25 History mcg/actuation mist for inhalation (Combivent Respimat) oxycodone 10 mg tablet 10 mg PO Q4H PRN pain 7 days #40 01/28/25 03/31/25 Unknown Rx tabs albuterol sulfate 90 mcg/actuation 2 puff inhalation Q6H PRN 02/11/25 03/31/25 Unknown History aerosol inhaler (Ventolin HFA) Shortness Of Breath duloxetine 60 mg capsule,delayed 601 mg PO DAILY 02/11/25 03/31/25 02/08/25 History release mupirocin 2 % topical ointment 1 applic topical BID PRN Skin 02/11/25 03/31/25 Unknown History Irritation pregabalin 200 mg capsule 200 mg PO BID 02/11/25 03/31/25 02/08/25 History trazodone 50 mg tablet 50 - 100 mg PO .bedtime PRN sleep 02/11/25 03/31/25 02/08/25 History apixaban 5 mg tablet (Eliquis) 5 mg PO BID 03/25/25 03/31/25 Unknown History Allergies Allergy/AdvReac Type Severity Reaction Status Date / Time bacitracin (From Neosporin Allergy BLISTERS Verified 04/12/25 15:06 ([id number])) neomycin (From Neosporin Allergy BLISTERS Verified 04/12/25 15:06 ([id number])) polymyxin B (From Neosporin Allergy BLISTERS Verified 04/12/25 15:06 ([id number])) PFSH Acute PFSH: Medical History Cigarette smoker motivated to quit Heavy cigarette smoker Alcohol use disorder, moderate, in sustained remission Major depressive disorder, recurrent severe without psychotic features Chronic post-traumatic stress disorder Generalized joint pain Lumbar spondylosis Spinal stenosis of lumbar region with radiculopathy Smoker Surgical History S/P tonsillectomy H/O spinal fusion 1998 [facility] C5-C6 DISCECTOMY/ FUSION/ FIXATION Status post carpal tunnel release of both wrists Status post delivery S/P excision of ganglion cyst S/P correction of deviated nasal septum Hx of foot surgery (~2017) RIGHT FOOT SURGERY POST WOUND NOT HEALING OSTEOMYLITIS Family History Father Cancer STOMACH CANCER Mother Dementia Other Heart disease Social History Smoking and tobacco/nicotine status: current every day tobacco/nicotine user cigarettes Years cigarettes smoked: 40 [ Other cigarette details: 1 PPD] Quit status (tobacco/nicotine): considering quitting Second hand smoke exposure: Yes Alcohol intake: current Alcohol intake frequency: holidays/special occasions only Substance/Drug Use: current Substance/Drug use frequency: few times a month Other substance/drug use details: smokes about once a week Adopted: No Caregiver/support person: No Lives independently: Yes Household members: none Housing: Apartment Marital status: Marital status details: since 2009 Number of children: 3 Number of grandchildren: 6 Highest education level completed: GED or Equivalent service: No Current occupational status: disabled Current occupational exposures/hazards: No Pets and animals: No Leisure activites: other Leisure activities details: TV and plant weinstein Sexually active: No Do you think of yourself as: Straight/Heterosexual Current gender identity: Female Celeste/Rastafarian: Baptist Special celeste needs: No Agree to transfusion: Yes Female Reproductive History: Para: 3 Spontaneous abortions: No Vitals/I&O/Wt Last Vital Signs Temp 99.1 F 04/12/25 14:57 Pulse 89 04/12/25 17:12 Resp 20 H 04/12/25 14:57 BP 88/57 04/12/25 17:12 Pulse Ox 97 04/12/25 17:12 O2 Del Method Nasal Cannula 04/12/25 17:12 O2 Flow Rate 2 04/12/25 17:12 04/12/25 04/12/25 04/12/25 06:59 14:59 22:59 Intake Total 0 0 1999 Balance 0 / 0 1999 Weight last 48 hrs Weight 88.451 kg Physical Exam Const: COMMON NORMALS: no acute distress and patient oriented x3 HENMT: COMMON NORMALS: normocephalic HEAD & SCALP: normocephalic Eye: COMMON NORMALS: Equal, round and reactive pupils present and EOMs intact bilaterally Neck/C-Spine: COMMON NORMALS: no JVD Lymph: LYMPHATIC: no lymphadenopathy noted Resp: COMMON NORMALS: normal respiratory effort, No retractions, No use of accessory muscles and clear to auscultation bilaterally AUSCULTATION: crackles and wheezes Cardio: COMMON NORMALS: no JVD, regular rate, regular rhythm, S1 normal heart sound present and S2 normal heart sound present RATE: regular rate RHYTHM: regular rhythm HEART SOUNDS: S1 normal heart sound present and S2 normal heart sound present GI: COMMON NORMALS: Normal to inspection, nondistended, normoactive bowel sounds present, Soft to palpation and non-tender : COMMON NORMALS: Yes no CVA tenderness OTHER: Sepsis examination, done 04/12/2025 at 6 PM, patient is septic, DP PT pulses palpable, cap refill less than 2 seconds, no mottling Extremity: COMMON NORMALS: no calf tenderness and no pedal edema Neuro: COMMON NORMALS: patient oriented x3, CN's II-XII intact bilaterally and moves all extremities Psych: COMMON NORMALS: mental status grossly normal Data 04/12/25 15:35 04/12/25 15:35 Micro: Microbiology 04/12/25 16:09 Blood Culture - Preliminary Blood SPECIMEN COLLECTED 04/12/25 16:08 Blood Culture - Preliminary Blood SPECIMEN COLLECTED A&P Assessment and plan (1) Septic shock: (2) Sepsis: (3) Healthcare-associated pneumonia: (4) Acute kidney injury: (5) UTI (urinary tract infection): (6) Pneumonia: Plan Septic shock, sepsis - Secondary to pneumonia - Secondary to urinary tract infection - Admit to ICU -Albumin therapy - Midodrine -If MAP is less than 65 we will start Levophed - Status post sepsis bolus - Follow-up cultures - Follow urine culture - Monitor clinical status closely - CT chest abdomen pelvis Urinary tract infection - History of E. coli bacteremia, UTI, sepsis, septic shock - Continue Zosyn Concerns for pneumonia - History of recent hospitalization - Concern for healthcare associate pneumonia - CT chest - Start vancomycin, Zosyn Acute kidney injury, likely secondary to sepsis, monitor urine output History of pulmonary embolism, continue Eliquis Full code Eliquis for DVT prophylaxis PDMP PDMP Reviewed: Last Reviewed 04/12/25 18:06 by Сергей Aly MD Attestations Medical Necessity Statement*: Patient requires hospitalization, inpatient mission, greater than 2 midnights for sepsis, septic shock secondary to UTI, pneumonia, ABDULAZIZ, Diagnoses Septic shock A41.9; R65.21 Sepsis A41.9 Healthcare-associated pneumonia J18.9 Acute kidney injury N17.9 UTI (urinary tract infection) N39.0 Pneumonia J18.9
[2025-04-12 18:09] LABS: Influenza A NEGATIVE (Negative); Influenza B NEGATIVE (Negative); Respiratory Syncytial Virus Ce NEGATIVE (Negative); SARS-CoV-2 PCR NEGATIVE (Negative)
[2025-04-12 18:34] LABS: Procalcitonin 0.56 ng/mL (0-0.5); Thyroid Stimulating Hormone 0.67 uIU/mL (0.27-4.20)
[2025-04-12] MEDS: pantoprazole 40 mg SDV IVP (18:34)
[2025-04-12 18:36] LABS: ABG PCO2 44.3 mmHg (35-45); ABG PH Result 7.35 (7.35-7.45); Arterial Blood Gas Hematocrit 38.6 % (37-47); Base Excess ABG -1.2 mmol/L (-2.0-2.0); Blood Gas Allen Test Pos; Blood Gas Operator Identificat AMH; Blood Gas Sample Site Radial, right; Blood Gas Sample Type Arterial; HCO3 ABG 24.6 mmol/L (22-26); Oxygen Device NC; PO2 ABG 65.5 mmHg (80.0-100.0); PO2 FiO2 Ratio Arterial Blood 233
--- NOTE | 2025-04-12 18:39 | ECG_ITS ---
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 Measurements Intervals [place] Rate: 81 P: 65 [place]: 156 QRS: 78 QRSD: 102 T: 50 QT: 387 QTc: 449 Interpretive Statements SINUS RHYTHM Compared to ECG 02/11/2025 11:36:22 Right-axis deviation no longer present Myocardial infarct finding no longer present T-wave abnormality no longer present Possible ischemia no longer present Electronically Signed On 04-14-2025 11:38:54 CDT by Zen Rhodes M.D. [id number] [id number]
[2025-04-12 18:48] LABS: Troponin(5th) Baseline 17 ng/L (0-10)
[2025-04-12] MEDS: piperacillin-tazobactam 3.375 GM in sodium chloride 0.9% (plus) 50 ML IV (19:15)
[2025-04-12] MEDS: morphine 4 mg/mL SDV 1 mL 2 MG IVP (19:29)
[2025-04-12] MEDS: sodium chloride 0.9% 1,000 ML 75 ML IV (19:49)
--- NOTE | 2025-04-12 20:49 | ECG_ITS ---
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
[2025-04-12] MEDS: vancomycin 1,750 MG/350 ML PIGGYBACK 175 MG IV (21:10)
[2025-04-12] MEDS: pregabalin 100 mg Capsule 200 MG PO (21:10)
[2025-04-12] MEDS: apixaban 5 mg Tablet PO (21:11)
[2025-04-12] MEDS: albumin 25 G/100 ML BAG 60 G IV (21:11)
[2025-04-12 21:53] LABS: Troponin 5 2HR 16.49 ng/L (0-10)
[2025-04-12 22:06] LABS: Troponin 5 2HR Delta -0.51 ABS# (0-10)
[2025-04-13] VITALS (71 sets, daily range): BP systolic 80–148; BP diastolic 54–93; PULSE 0–100; RESP 9–34; TEMP 36.4–37.1; O2SAT 81–99
--- NOTE | 2025-04-13 00:15 | ECG_ITS ---
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
[2025-04-13 01:29] LABS: Troponin 5 6HR 16.69 ng/L (0-10)
[2025-04-13 01:32] LABS: Troponin 5 6HR Delta -0.31 ng/L (0-12)
[2025-04-13] MEDS: midodrine 5 mg TABLET 10 MG PO ×3 (02:40→13:30)
[2025-04-13] MEDS: piperacillin-tazobactam 3.375 GM in sodium chloride 0.9% (plus) 50 ML IV ×3 (02:41→18:38)
[2025-04-13] MEDS: albumin 25 G/100 ML BAG 60 G IV ×2 (04:47→13:29)
[2025-04-13 05:47] LABS: Basophils # 0.1 10^3/uL (0.0-0.1); Basophils % 0.6 %; Eosinophils % 0.3 %; Hematocrit 34.3 % (36-47); Lymphocytes # 3.4 10^3/uL (0.8-4.8); Mean Corpuscular HGB Conc 31.5 g/dL (30-55); Mean Corpuscular Hemoglobin 30.6 pg (27-33); Mean Corpuscular Volume 97.2 fl (85-98); Mean Platelet Volume 12.9 fL (7.4-10.4); Monocytes % 8.3 %; Neutrophils % 63.4 %; Nucleated Red Blood Cells % 0 %; Platelet Count 143 10^3/cmm (157-399); Red Blood Count 3.53 10^6/uL (3.85-5.65); Red Cell Distribution Width 14.2 % (12.1-15.1); White Blood Count 12.46 10^3/uL (3.29-11.43)
[2025-04-13 06:38] LABS: Alanine Aminotransferase < 5 U/L (0-33); Albumin Level 3.5 g/dL (3.5-5.2); Alkaline Phosphatase 77 U/L (35-105); Aspartate Amino Transferase 10 U/L (0-32); Blood Urea Nitrogen 9 mg/dL (6-20); Calcium 8.8 mg/dL (8.5-10.5); Carbon Dioxide 21 mmol/L (22-29); Chloride 105 mmol/L (98-107); Creatinine Clr Calc Pharmacy 61.4896; Globulin 3.3 g/dL (1.3-4.6); Glomerular Filtration Rate 46.5 mL/min (90-130); Glucose 97 mg/dL (65-115); Magnesium 1.7 mg/dL (1.7-2.3); Osmolality Calculated 289 mOsm/kg (285-295); Phosphorus 3.8 mg/dL (2.5-4.5); Sodium 140 mmol/L (136-145); Total Bilirubin 0.3 mg/dL (0.15-1.2); Total Protein 6.8 g/dL (6.6-8.7)
[2025-04-13 06:49] LABS: NT Pro B Type Natriuretic Pept 450 pg/mL (0-125); Procalcitonin 1.27 ng/mL (0-0.5)
--- OUTSIDE RECORDS SUMMARY | 2025-04-13 06:55 | XMS_ITS | CCD ---
Author Name Interface, [id number] [place] [address] Organization [facility] [place] [address] Care Team Providers Care Solidworks Drafter Name Role Phone Katerina Mora Unavailable Unavailable Reason for Visit Social History Date Name Value Sex Female
--- OUTSIDE RECORDS SUMMARY | 2025-04-13 06:56 | XMS_ITS | Patient Health Record ---
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 (Z79.891) Active confirmed Problem Chronic pain (63334613) Other chronic pain (G89.29) Active confirmed Problem Degeneration of lumbar intervertebral disc (46041411) Other intervertebral disc degeneration, lumbar region (M51.36) Active confirmed Problem Right side sciatica (097998306326666) Sciatica, right side (M54.31) Active confirmed Problem Sciatica (04173188) Lumbago with sciatica, right side (M54.41) Active confirmed Problem Sciatica (10676734) Lumbago with sciatica, left side (M54.42) Active confirmed Problem Long-term current use of drug therapy (522500327) 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 (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) Active confirmed Problem Low back pain (finding) (399619388) Vertebrogenic low back pain (M54.51) Active confirmed Plan Of Treatment No Information Insurance Providers Payer Name Payer Address Payer Phone Subscriber Number Group Number Insured Name Patient Relationship to Insured Coverage Start Date Coverage End Date [place] [address] [place] [address] [id number] Kailyn Jeffers Self - patient is the insured Medical (General) History Medical History History ICD Code Chronic low back pain with sciatica snf prescription opiate use DDD lumbar Sciatica, right side COPD Stage 3 chronic kidney disease Radal nerve palsy Right foot drop Vitamin D deficiency Mixed hyperlipidemia
--- OUTSIDE RECORDS SUMMARY | 2025-04-13 06:56 | XMS_ITS | Patient Health Record ---
Author Organization [facility] Address [address] [place] [address] Care Team Providers Care Bit Sander Name Role Phone Bhavesh Harp Primary Care Provider Reason For Referral No Information Plan Of Treatment No Information Insurance Providers Payer Name Payer Address Payer Phone Subscriber Number Group Number Insured Name Patient Relationship to Insured Coverage Start Date Coverage End Date Medicaid [address] [place] [address] [id number] Kailyn Jeffers Self - patient is the insured Medicaid Dental [address] [place] [id number] [id number] Kailyn Jeffers Self - patient is the insured
[2025-04-13 07:03] LABS: C Reactive Protein 74.3 mg/L (0.0-4.9)
--- NOTE | 2025-04-13 08:19 | XR_ITS ---
WS: [id number] XR chest 1V portable [id number] REASON FOR EXAM: Post PICC insertion FINDINGS: A right arm PICC line has been placed. The tip of the catheter is in the distal SVC in a position appropriate for use. PICC line position was given to the x-ray technologist over the phone at 8:52 a.m. Interstitial and groundglass opacities in the right lower lung compatible with acute/subacute pneumonitis. Findings more prominent than on 04/12/2025. XR/XR chest 1V portable [id number] IMPRESSION: Right arm PICC line position as above.
[2025-04-13] MEDS: BuSPIRONE 10 mg Tablet 5 MG PO (08:24)
[2025-04-13] MEDS: pregabalin 100 mg Capsule 200 MG PO ×2 (08:24→17:01)
[2025-04-13] MEDS: duloxetine 60 mg Capsule PO (08:24)
[2025-04-13] MEDS: apixaban 5 mg Tablet PO ×2 (08:24→21:24)
[2025-04-13] MEDS: sodium chloride 0.9% 1,000 ML 75 ML IV (08:25)
[2025-04-13] MEDS: VANCOMYCIN ADD-Vantage 1,000 MG in 0.9% NaCl ADD-Vantage 250 ML 250 MG IV ×2 (08:25→19:43)
--- NOTE | 2025-04-13 08:29 | PC.PHAR ---
Will follow up with Sherri when they open at 9am.
[2025-04-13 08:40] LABS: Cortisol Random 7.29 ug/dL (2.47-19.5)
[2025-04-13] MEDS: cosyntropin 0.25 mg SDV IVP (08:55)
--- NOTE | 2025-04-13 09:09 | PICC.NOTE ---
Triple lumen PICC placed to right basilic vein. Referred to vascular access nurse for PICC placement due to poor access and possible need for vasopressors. Risks and benefits discussed and informed consent obtained from pt. Right arm assessed with right basilic vein measuring 3.4 mm, straight, and apparent best choice for placement. Using sterile technique and MST, right basilic vein accessed x 1 stick. Mid-arm circumference measured 10 cm from right AC 30 cm. Trimmed cath 43 cm with 0 cm external length noted. CXR shows tip in distal SVC, in good position for use per radiologist. Line secured with stat-lock. Insertion site covered with Biopatch and TSM. Report given to bedside nurse, BREE Nixon.
--- NOTE | 2025-04-13 09:58 | PC.PHAR ---
Current med list updated via [employer] with last fill date and day supply. Unable to wake pt.
[2025-04-13 10:02] LABS: Cosyntropin Baseline 15.48 mcg/dL
[2025-04-13 10:18] LABS: Cosyntropin 30 Minute 21.99 mcg/dL
[2025-04-13 10:57] LABS: Cosyntropin 1 Hour 25.83 mcg/dL
[2025-04-13] MEDS: oxyCODONE 5 mg IR Tab/Cap 10 MG PO (13:31)
--- NOTE | 2025-04-13 14:16 | PHA.VACGOAL ---
Vancomycin Goal - Goal Vancomycin Indication:: Other - Therapy Day of therpy:: Day []of [] . Actual body weight (kg): 214 lb - Data Labs: WBC 12.46 10^3/uL (3.29-11.43) H 04/13/25 04:23 RBC 3.53 10^6/uL (3.85-5.65) L 04/13/25 04:23 Hgb 10.80 g/dL (11.27-16.99) L 04/13/25 04:23 Hct 34.3 % (36-47) L 04/13/25 04:23 MCV 97.2 fl (85-98) 04/13/25 04:23 MCH 30.6 pg (27-33) 04/13/25 04:23 MCHC 31.5 g/dL (30-55) 04/13/25 04:23 RDW 14.2 % (12.1-15.1) 04/13/25 04:23 Sodium 140 mmol/L (136-145) 04/13/25 04:23 Potassium 4.0 mmol/L (3.5-5.1) 04/13/25 04:23 Chloride 105 mmol/L (98-107) 04/13/25 04:23 Carbon Dioxide 21 mmol/L (22-29) L 04/13/25 04:23 Anion Gap 18.0 (5-19) 04/13/25 04:23 BUN 9 mg/dL (6-20) 04/13/25 04:23 Creatinine 1.2 mg/dL (0.5-0.9) H 04/13/25 04:23 GFR Calculation 46.5 mL/min (90-130) L 04/13/25 04:23 Treatment plan:: new consult Regimen:: STARTED BY TELEPHARMACY, TROUGH 04/14
--- NOTE | 2025-04-13 15:22 | P.PN_ITS ---
Subjective 2 Subjective: Patient was seen this morning, she is alert and oriented x 3, following all commands, no abdominal pain, no fevers, no chills, no lightheadedness, no dizziness Vitals/I&O/Wt Last Vital Signs Temp 98.2 F 04/13/25 12:00 Pulse 70 04/13/25 13:48 Resp 17 04/13/25 13:31 BP 119/71 04/13/25 12:00 Pulse Ox 94 04/13/25 12:00 O2 Del Method Nasal Cannula 04/13/25 09:02 O2 Flow Rate 2 04/13/25 09:02 04/13/25 04/13/25 04/13/25 06:59 14:59 22:59 Intake Total 2100 / 7053.53 1195 / 1195 Output Total 900 / 900 1000 / 1000 Balance 1200 / 6153.53 195 / 195 Weight last 48 hrs Weight 97.069 kg Weight 97.5 kg Weight 88.451 kg Physical Exam 2 Const: COMMON NORMALS: no acute distress and patient oriented x3 Resp: COMMON NORMALS: normal respiratory effort, No retractions, No use of accessory muscles and clear to auscultation bilaterally AUSCULTATION: clear to auscultation bilaterally Cardio: COMMON NORMALS: regular rate, regular rhythm, S1 normal heart sound present and S2 normal heart sound present RATE: regular rate RHYTHM: r egular rhythm HEART SOUNDS: S1 normal heart sound present and S2 normal heart sound present GI: COMMON NORMALS: Normal to inspection, nondistended, normoactive bowel sounds present and non-tender Extremity: COMMON NORMALS: no pedal edema Neuro: COMMON NORMALS: patient oriented x3 Psych: COMMON NORMALS: mental status grossly normal Data 04/13/25 04:23 04/13/25 04:23 Micro: Microbiology 04/12/25 16:09 Blood Culture - Preliminary Blood SPECIMEN COLLECTED 04/12/25 16:08 Blood Culture - Preliminary Blood SPECIMEN COLLECTED A&P Assessment and plan (1) Septic shock: (2) Sepsis: (3) Healthcare-associated pneumonia: (4) Acute kidney injury: (5) UTI (urinary tract infection): (6) Pneumonia: Plan Septic shock, sepsis - Secondary to pneumonia - Secondary to urinary tract infection - Will moved to medical floors -Albumin therapy, de-escalated - Midodrine, de-escalate to midodrine 5 every 8 hours and likely discontinued - Blood pressure have been soft, in the past also check cortisol levels, cosyntropin test - Status post sepsis bolus - Follow-up cultures - Follow urine culture - Monitor clinical status closely - CT chest abdomen pelvis no acute findings Urinary tract infection - History of E. coli bacteremia, UTI, sepsis, septic shock - Continue Zosyn Concerns for pneumonia, right lower lobe pneumonia - History of recent hospitalization - Concern for healthcare associate pneumonia - CT chest no acute findings - Start vancomycin, Zosyn Acute kidney injury, likely secondary to sepsis, monitor urine output, resolving History of pulmonary embolism, continue Eliquis History of cardiac arrest, prolonged intubation, with septic shock secondary to E. coli bacteremia, UTI back in February 2025 Full code Eliquis for DVT prophylaxis PDMP PDMP Reviewed: Last Reviewed 04/12/25 18:13 by Сергей Aly MD Attestations 2 Medical Necessity Statement*: Patient requires hospitalization for sepsis secondary UTI, pneumonia Diagnoses Septic shock A41.9; R65.21 Sepsis A41.9 Healthcare-associated pneumonia J18.9 Acute kidney injury N17.9 UTI (urinary tract infection) N39.0 Pneumonia J18.9 Laterality: right Lung location: lower lobe of lung Pneumonia type: due to unspecified organism
[2025-04-13] MEDS: pantoprazole 40 mg SDV IVP (17:01)
[2025-04-13] MEDS: sodium chloride 0.9% 1,000 ML 50 ML IV (18:37)
[2025-04-13] MEDS: midodrine 5 mg TABLET PO (21:24)
[2025-04-14] VITALS (7 sets, daily range): BP systolic 116–151; BP diastolic 60–75; PULSE 64–71; RESP 14–16; TEMP 36.4–37.1; O2SAT 92–95
[2025-04-14] MEDS: acetaminophen 325 mg Tablet 650 MG PO (02:17)
[2025-04-14] MEDS: piperacillin-tazobactam 3.375 GM in sodium chloride 0.9% (plus) 50 ML IV (02:18)
[2025-04-14] MEDS: midodrine 5 mg TABLET PO (04:46)
[2025-04-14] MEDS: oxyCODONE 5 mg IR Tab/Cap PO (04:47)
[2025-04-14 05:03] LABS: Basophils # 0.1 10^3/uL (0.0-0.1); Basophils % 0.8 %; Eosinophils # 0.1 10^3/uL (0.0-0.8); Eosinophils % 1.2 %; Hematocrit 34.6 % (36-47); Lymphocytes # 3.4 10^3/uL (0.8-4.8); Lymphocytes % 30.8 %; Mean Corpuscular HGB Conc 30.9 g/dL (30-55); Mean Corpuscular Hemoglobin 30.1 pg (27-33); Mean Corpuscular Volume 97.5 fl (85-98); Mean Platelet Volume 12.9 fL (7.4-10.4); Monocytes # 1.1 10^3/uL (0.2-0.9); Monocytes % 10.2 %; Neutrophils # 6.15 10^3/uL (1.8-7.7); Neutrophils % 56.5 %; Nucleated Red Blood Cells % 0 %; Platelet Count 128 10^3/cmm (157-399); Red Blood Count 3.55 10^6/uL (3.85-5.65); Red Cell Distribution Width 13.7 % (12.1-15.1); White Blood Count 10.88 10^3/uL (3.29-11.43)
[2025-04-14 05:33] LABS: C Reactive Protein 83.5 mg/L (0.0-4.9)
[2025-04-14 05:39] LABS: Procalcitonin 0.89 ng/mL (0-0.5)
[2025-04-14 05:40] LABS: Alanine Aminotransferase 7 U/L (0-33); Albumin Level 3.6 g/dL (3.5-5.2); Alkaline Phosphatase 72 U/L (35-105); Aspartate Amino Transferase 17 U/L (0-32); Blood Urea Nitrogen 9 mg/dL (6-20); Calcium 8.8 mg/dL (8.5-10.5); Carbon Dioxide 23 mmol/L (22-29); Chloride 104 mmol/L (98-107); Creatinine Clr Calc Pharmacy 61.4896; Globulin 3.1 g/dL (1.3-4.6); Glomerular Filtration Rate 46.5 mL/min (90-130); Glucose 110 mg/dL (65-115); Magnesium 1.7 mg/dL (1.7-2.3); Osmolality Calculated 289 mOsm/kg (285-295); Phosphorus 2.4 mg/dL (2.5-4.5); Sodium 140 mmol/L (136-145); Total Bilirubin 0.4 mg/dL (0.15-1.2); Total Protein 6.7 g/dL (6.6-8.7)
[2025-04-14 05:46] LABS: NT Pro B Type Natriuretic Pept 2192 pg/mL (0-125)
[2025-04-14] MEDS: pregabalin 100 mg Capsule 200 MG PO (08:39)
[2025-04-14] MEDS: BuSPIRONE 10 mg Tablet 5 MG PO (08:40)
[2025-04-14] MEDS: polyethylene glycol 3350 Pkt 17 gm PO (08:40)
[2025-04-14] MEDS: VANCOMYCIN ADD-Vantage 1,000 MG in 0.9% NaCl ADD-Vantage 250 ML 250 MG IV (08:40)
[2025-04-14] MEDS: apixaban 5 mg Tablet PO (08:40)
[2025-04-14] MEDS: duloxetine 60 mg Capsule PO (08:40)
--- NOTE | 2025-04-14 11:44 | PM.DCS ---
Discharge Providers Date of Admission: 04/12/25 18:00 Date of Discharge: April 14, 2025 Attending Provider at Admission: Сергей Aly MD Attending Provider at Discharge: Сергей Aly MD Primary Care Provider: Yobany Iverson Diagnoses at Discharge Discharge Diagnosis (1) Septic shock: Status: Acute (2) Sepsis: Status: Acute (3) Healthcare-associated pneumonia: Status: Acute (4) Acute kidney injury: Status: Acute (5) UTI (urinary tract infection): Status: Acute (6) Pneumonia: Status: Acute Qualifiers: Laterality: right Lung location: lower lobe of lung Pneumonia type: due to unspecified organism Qualified Code(s): J18.9 - Pneumonia, unspecified organism Reason for Visit Reason for Visit: NVD Hospital Course Hospital Course Kailyn Jeffers is a 54 year old female with a past medical history of pulmonary embolism, on Eliquis, history of cardiac arrest/intubation,/respiratory failure secondary to septic shock and E. coli bacteremia, thrombocytopenia, current smoker, COPD, low back pain, who presents [facility] due to fatigue, malaise, fevers, chills, nausea, vomiting. Currently patient alert oriented x 3, following all commands, she tells me that for the last few days she has had fatigue, malaise, reported fevers, chills she had episode of nausea this morning, lightheadedness, she does report dysuria, no hematuria, no flank pain no history of kidney stones, does have a cough, does report smoking does report shortness of breath at times, recently she was Transferred rojas for E. coli bacteremia, she does not remember the details of her hospitalization but we will have to obtain records does report a cardiac arrest episode for 20 minutes, reports prolonged intubation for over 2 weeks, she denies any interventions such as stents placements in her kidneys, denies any ERCP or stent placement in her biliary tract but she is not exactly sure, we will have to request medical records Patient was admitted to [facility] for sepsis, septic toxic gonorrhea, UTI, monitored in ICU, on albumin, midodrine, broad-spectrum antibiotic therapy. Overall patient clinically improved, moved to medical floors, ambulating without significant hematology, normotensive, blood cultures so far no growth, urine cultures growing gram-negative rods. Patient has a history of E. coli bacteremia, E. coli species was resistant to fluoroquinolones. Will discharge patient with 7-day course of cefdinir doxycycline with close follow-up with primary care provider as outpatient. Patient was advised if she were to have any fevers or chills or lightheadedness tomorrow to go to the emergency room. For ABDULAZIZ, received IV fluids, discharge instructions to drink plenty of electrolyte balance fluids. For patient's recurrent UTIs, will have her follow-up with urology as outpatient, consider chronic antibiotic prophylaxis for recurrent UTIs. Physical Exam Const: COMMON NORMALS: no acute distress and patient oriented x3 Resp: COMMON NORMALS: normal respiratory effort, No retractions, No use of accessory muscles and clear to auscultation bilaterally AUSCULTATION: clear to auscultation bilaterally Cardio: COMMON NORMALS: regular rate, regular rhythm, S1 normal heart sound present and S2 normal heart sound present RATE: regular rate RHYTHM: regular rhythm HEART SOUNDS: S1 normal heart sound present and S2 normal heart sound present GI: COMMON NORMALS: Normal to inspection, nondistended, normoactive bowel sounds present and non-tender Extremity: COMMON NORMALS: no pedal edema Neuro: COMMON NORMALS: patient oriented x3 Psych: COMMON NORMALS: mental status grossly normal Discharge Data Studies Completed and Pending Completed Studies During Hospitalization Category Date Time Status CT chest abdomen pelvis [[place] [id number] Cat Scan 04/12/25 17:55 Completed ] Stat CXRP [XR chest 1V portable [id number]] Routine Exams 04/13/25 08:19 Completed XR chest 1V portable [id number] Stat Exams 04/12/25 15:50 Completed Pending at discharge Category Date Time Status Blood Culture Stat Lab 04/12/25 16:09 Results C Reactive Protein AM LABS Lab 04/15/25 04:00 Ordered Complete Blood Count w/Auto AM LABS Lab 04/15/25 04:00 Ordered Comprehensive Metabolic Panel AM LABS Lab 04/15/25 04:00 Ordered Magnesium AM LABS Lab 04/15/25 04:00 Ordered NT Pro B Type Natriuretic Pept QAM Lab 04/15/25 06:00 Ordered Phosphorus AM LABS Lab 04/15/25 04:00 Ordered Procalcitonin AM LABS Lab 04/15/25 04:00 Ordered Urinalysis Routine Lab 04/12/25 18:45 Ordered Urine Culture Stat Lab 04/12/25 17:18 Results Radiology Impressions Chest/Abdomen/Pelvis CT 04/12/25 17:55 IMPRESSION: No acute findings. IMPRESSION: No acute findings. Chest X-Ray 04/13/25 08:19 IMPRESSION: Right arm PICC line position as above. Laboratory Results WBC 10.88 10^3/uL (3.29-11.43) 04/14/25 04:41 RBC 3.55 10^6/uL (3.85-5.65) L 04/14/25 04:41 Hgb 10.70 g/dL (11.27-16.99) L 04/14/25 04:41 Hct 34.6 % (36-47) L 04/14/25 04:41 MCV 97.5 fl (85-98) 04/14/25 04:41 MCH 30.1 pg (27-33) 04/14/25 04:41 MCHC 30.9 g/dL (30-55) 04/14/25 04:41 RDW 13.7 % (12.1-15.1) 04/14/25 04:41 Plt Count 128 10^3/cmm (157-399) L 04/14/25 04:41 MPV 12.9 fL (7.4-10.4) H 04/14/25 04:41 Neut % (Auto) 56.5 % 04/14/25 04:41 Lymph % (Auto) 30.8 % 04/14/25 04:41 [place] % (Auto) 10.2 % 04/14/25 04:41 Eos % (Auto) 1.2 % 04/14/25 04:41 Baso % (Auto) 0.8 % 04/14/25 04:41 Neut # (Auto) 6.15 10^3/uL (1.8-7.7) 04/14/25 04:41 Lymph # (Auto) 3.4 10^3/uL (0.8-4.8) 04/14/25 04:41 [place] # (Auto) 1.1 10^3/uL (0.2-0.9) H 04/14/25 04:41 Eos # (Auto) 0.1 10^3/uL (0.0-0.8) 04/14/25 04:41 Baso # (Auto) 0.1 10^3/uL (0.0-0.1) 04/14/25 04:41 Nucleated RBC % (auto) 0 % 04/14/25 04:41 Nucleated RBCs # 0.0 /100WBC 04/14/25 04:41 Specimen Type Arterial 04/12/25 18:25 Sample Site Radial, right 04/12/25 18:25 ABG pH 7.35 (7.35-7.45) 04/12/25 18:25 ABG pCO2 44.3 mmHg (35-45) 04/12/25 18:25 ABG pO2 65.5 mmHg (80.0-100.0) L 04/12/25 18:25 ABG PO2/FiO2 Ratio 233 04/12/25 18:25 ABG HCO3 24.6 mmol/L (22-26) 04/12/25 18: ABG Base Excess -1.2 mmol/L (-2.0-2.0) 04/12/25 18:25 Damien Test Pos 04/12/25 18:25 Hematocrit 38.6 % (37-47) 04/12/25 18:25 O2 Delivery Device Nc 04/12/25 18:25 O2 Liters/Min 2.0 % 04/12/25 18:25 FiO2 28.0 % 04/12/25 18:25 Manager Cancer ID Amh 04/12/25 18:25 Sodium 140 mmol/L (136-145) 04/14/25 04:41 Potassium 4.0 mmol/L (3.5-5.1) 04/14/25 04:41 Chloride 104 mmol/L (98-107) 04/14/25 04:41 Carbon Dioxide 23 mmol/L (22-29) 04/14/25 04:41 Anion Gap 17.0 (5-19) 04/14/25 04:41 BUN 9 mg/dL (6-20) 04/14/25 04:41 Creatinine 1.2 mg/dL (0.5-0.9) H 04/14/25 04:41 GFR Calculation 46.5 mL/min (90-130) L 04/14/25 04:41 Glucose 110 mg/dL (65-115) 04/14/25 04:41 Calculated Osmolality 289 mOsm/kg (285-295) 04/14/25 04:41 Lactic Acid 2.1 mmol/L (0.5-2.2) 04/12/25 15:35 Lactic Acid (Sepsis) 1.0 mmol/L (0.5-2.2) 04/12/25 18:21 Calcium 8.8 mg/dL (8.5-10.5) 04/14/25 04:41 Phosphorus 2.4 mg/dL (2.5-4.5) L 04/14/25 04:41 Magnesium 1.7 mg/dL (1.7-2.3) 04/14/25 04:41 Total Bilirubin 0.4 mg/dL (0.15-1.2) 04/14/25 04:41 AST 17 U/L (0-32) 04/14/25 04:41 ALT 7 U/L (0-33) 04/14/25 04:41 Alkaline Phosphatase 72 U/L (35-105) 04/14/25 04:41 Troponin T Baseline 17 ng/L (0-10) H 04/12/25 15:35 Troponin T 120 Minute 16.49 ng/L (0-10) H 04/12/25 21:19 Delta Troponin T -0.51 ABS# (0-10) L 04/12/25 21:19 Troponin T Hi Sens 6Hr 16.69 ng/L (0-10) H 04/13/25 00:50 Troponin T Hi Sens 6Hr Delta -0.31 ng/L (0-12) L 04/13/25 00:50 C-Reactive Protein 83.5 mg/L (0.0-4.9) H 04/14/25 04:41 NT-Pro-B Natriuret Pep 2192 pg/mL (0-125) H 04/14/25 04:41 Total Protein 6.7 g/dL (6.6-8.7) 04/14/25 04:41 Albumin 3.6 g/dL (3.5-5.2) 04/14/25 04:41 Globulin 3.1 g/dL (1.3-4.6) 04/14/25 04:41 Lipase 13 U/L (13-60) 04/12/25 15:35 Procalcitonin 0.89 ng/mL (0-0.5) H 04/14/25 04:41 TSH 0.67 uIU/mL (0.27-4.20) 04/12/25 15:35 Random Cortisol 7.29 ug/dL (2.47-19.5) 04/13/25 04:23 Cortisol Response 04/13/25 08:13 Urine Color Yellow (Yellow) 04/12/25 17:18 Urine Appearance Clear (CLEAR) 04/12/25 17:18 Urine pH 6.5 (5-7) 04/12/25 17:18 Ur Specific [place] 1.004 (1.005-1.030) L 04/12/25 17:18 Urine Protein Negative (Negative) 04/12/25 17:18 Urine Glucose (UA) Negative (Normal) 04/12/25 17:18 Urine Ketones Negative (Negative) 04/12/25 17:18 Urine Blood Negative (Negative) 04/12/25 17:18 Urine Nitrate Negative (Negative) 04/12/25 17:18 Urine Bilirubin Negative (Negative) 04/12/25 17:18 Urine Urobilinogen 0.2 mg/dL (Negative) 04/12/25 17:18 Ur Leukocyte Esterase 1+ (Negative) A 04/12/25 17:18 Urine RBC 0-2 /hpf (0-2) 04/12/25 17:18 Urine WBC 11-20 /hpf (0-5) H 04/12/25 17:18 Ur Squamous Epith Cells 0-5 /hpf (0-5) 04/12/25 17:18 Amorphous Sediment Not Reportable 04/12/25 17:18 Urine Bacteria 4+ /hpf (NONE) H 04/12/25 17:18 Hyaline Casts 0.40 /lpf 04/12/25 17:18 Influenza A (PCR) Negative (Negative) 04/12/25 17:28 Influenza Type B (PCR) Negative (Negative) 04/12/25 17:28 RSV (PCR) Negative (Negative) 04/12/25 17:28 SARS-CoV-2 (PCR) Negative (Negative) 04/12/25 17:28 Vitals Last Vital Signs Temp 98.0 F 04/14/25 11:38 Pulse 71 04/14/25 11:38 Resp 16 04/14/25 11:38 BP 125/69 04/14/25 11:38 Pulse Ox 95 04/14/25 11:38 O2 Del Method Room Air 04/14/25 11:38 O2 Flow Rate 2 04/13/25 09:02 Discharge Plan Discharge Patient Disposition: Home Condition: Stable Prescriptions: New cefdinir 300 mg capsule 300 mg PO BID 7 Days Qty: 14 0RF doxycycline hyclate 100 mg tablet 100 mg PO BID 7 Days Qty: 14 0RF Continued acetaminophen [Tylenol Extra Strength] 500 mg tablet 1,000 mg PO TID PRN (Reason: Pain) budesonide-formoterol [Symbicort] 160-4.5 mcg/actuation HFA aerosol inhaler 1 puff inhalation DAILY Eliquis 5 mg tablet 5 mg PO BID naloxone [Narcan] 4 mg/actuation spray,non-aerosol 1 spray intranasal Q3M Qty: 2 0RF Rx Instructions: spray 1 dose into ONE nostril; alternate nostrils w each dose until help arrives buspirone 5 mg tablet 5 mg PO DAILY Combivent Respimat 20-100 mcg/actuation mist 20 - 100 puff INHALATION DAILY polyethylene glycol 3350 17 gram/dose powder 17 g PO DAILY oxycodone 5 mg tablet 5 mg PO TID PRN (Reason: Pain) mupirocin 2 % ointment 1 applic TOPICAL BID PRN (Reason: Skin Irritation) albuterol sulfate [Ventolin HFA] 90 mcg/actuation HFA aerosol inhaler 2 puff INHALATION Q6H PRN (Reason: Shortness Of Breath) duloxetine 60 mg capsule,delayed release(DR/EC) 601 mg PO DAILY pregabalin 200 mg capsule 200 mg PO BID trazodone 50 mg tablet 50 - 100 mg PO .bedtime PRN (Reason: sleep) Discharge Orders: Discharge Order (Routine); Ordered 04/14/25 Ordered By: Сергей Aly Referrals: Chip Haro MD [Referring, Urology] - 1 week Referral Note: referral sent Yobany Iverson [Primary Care Provider, Family Practice] - 04/20/25 3:40 pm Discharge Diet: Cardiac Discharge Activity: Resume usual activity Patient Instructions: Doxycycline (By mouth), Cefdinir (By mouth), Urinary Tract Infection in Women (GEN), Opioid Safety, Pneumonia Stoplight Activity Restrictions/Additional Instructions: --Please drink plenty of electrolyte balanced fluids - Take antibiotics as prescribed - If any fevers or chills please come back to emergency room Discharge Attestations Time Spent in Discharge Care*: greater than 30 min Quality Metrics Clinical Quality Measures [ No reported AMI, CVA or VTE this stay] Coding Level of Care Code 35253 Total time (in minutes) for Discharge: 45 Diagnoses Septic shock A41.9; R65.21 Sepsis A41.9 Healthcare-associated pneumonia J18.9 Acute kidney injury N17.9 UTI (urinary tract infection) N39.0 Pneumonia J18.9 Laterality: right Lung location: lower lobe of lung Pneumonia type: due to unspecified organism
--- NOTE | 2025-04-14 12:03 | PC.NURSE ---
Discharge instructions provided to pt and her family member. No questions or concerns at this time.
--- NOTE | 2025-04-14 12:19 | PC.NURSE ---
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 Returned to [facility] with Nurse chaka Valdez.
--- OUTSIDE RECORDS SUMMARY | 2025-05-17 19:00 | XMS_ITS | Clinical Summary ---
Author Organization Unknown Care Team Providers Care Panel Gluer Name Role Phone SILAS LEA, CIRILO Unavailable Unavailable KADY COLVIN, HERBERT Unavailable Unavailable RAMILA GIRON, [place] Unavailable Unavailable Payers Payer Name Policy Type Policy Number Effective Date Expira tion Date [employer] [place] [id number] [facility] [id number] Problems Condition Name Condition Details Condition Category Status Onset Date Resolution Date Last Treatment Date Treating Clinician Comments SEPSIS DUE TO ESCHERICHIA COLI [E. COLI] Active 03-20 00:00: 00 ACUTE KIDNEY FAILURE, UNSPECIFIED Active 11-12 00:00: 00 TUBULO-INTER STITIAL NEPHRITIS, NOT SPCF ACUTE OR CHRONIC Active 11-12 00:00: 00 PANLOBULAR EMPHYSEMA Active 11-12 00:00: 00 MAJOR DEPRESSIVE DISORDER, RECURRENT, MILD Active 11-12 00:00: 00 THROMBOCYTOP ENIA, UNSPECIFIED Active 11-12 00:00: 00 OTHER PULMONARY EMBOLISM WITHOUT ACUTE COR PULMONALE Active 11-12 00:00: 00 ANOXIC BRAIN DAMAGE, NOT ELSEWHERE CLASSIFIED Active 11-12 00:00: 00 BILATERAL PRIMARY OSTEOARTHRIT IS OF HIP Active 11-12 00:00: 00 ANEMIA, UNSPECIFIED Active 11-12 00:00: 00 ANXIETY DISORDER, UNSPECIFIED Active - 00:00: 00 ACUTE AND SUBACUTE HEPATIC FAILURE WITHOUT COMA Active 11-12 00:00: 00 MIXED HYPERLIPIDEM IA Active 11-12 00:00: 00 HYPO-OSMOLAL ITY AND HYPONATREMIA Active - 00:00: 00 VITAMIN D DEFICIENCY, UNSPECIFIED Active - 00:00: 00 ENCEPHALOPAT HY, UNSPECIFIED Active 11-12 00:00: 00 GASTRO-ESOPH AGEAL REFLUX DISEASE WITHOUT ESOPHAGITIS Active 11-12 00:00: 00 OTHER CONSTIPATION Active 11-12 00:00: 00 FIBROMYALGIA Active 11-12 00:00: 00 SCIATICA, RIGHT SIDE Active 11-12 00:00: 00 SCIATICA, LEFT SIDE Active 11-12 00:00: 00 OBSTRUCTIVE SLEEP APNEA (ADULT) (PEDIATRIC) Active 11-12 00:00: 00 OTHER CHRONIC PAIN Active 11-12 00:00: 00 NICOTINE DEPENDENCE, CIGARETTES, UNCOMPLICATE D Active 11-12 00:00: 00 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 Ordering Clinician Indication Dosage Frequency Signature (SIG) Comments Components albuterol sulfate HFA 90 mcg/actuati on aerosol inhaler 03-20 00:00: 00 Yes [id number] 2 puff EVERY 6 HOURS 2 puff EVERY 6 HOURS (route: inhalation ) Med Classific ation: Respirato ry Therapy Agents buspirone 5 mg tablet 03-20 00:00: 00 Yes [id number] 1 tablet 3 TIMES DAILY 1 tablet 3 TIMES DAILY (route: oral) Med Classific ation: Central Nervous System Agents Combivent Respimat 20 mcg-100 mcg/actuati on solution for inhalation 03-20 00:00: 00 Yes [id number] 1 puff EVERY 6 HOURS 1 puff EVERY 6 HOURS (route: inhalation ) Med Classific ation: Respirato ry Therapy Agents duloxetine 60 mg capsule,del ayed release 03-20 00:00: 00 Yes [id number] 1 capsule DAILY 1 capsule DAILY (route: oral) Med Classific ation: Central Nervous System Agents Eliquis 5 mg tablet 03-20 00:00: 00 Yes [id number] 1 tablet 2 TIMES DAILY 1 tablet 2 TIMES DAILY (route: oral) Med Classific ation: Hematolog ical Agents hydrocodone 5 mg-acetamin ophen 325 mg tablet 03-20 00:00: 00 Yes [id number] 1 tablet EVERY 6 HOURS 1 tablet EVERY 6 HOURS (route: oral) Med Classific ation: Analgesic , Anti-infl ammatory or Antipyret ic Miralax 17 gram/dose oral powder 03-20 00:00: 00 Yes [id number] 17 g DAILY 17 g CECILIA Y (route: oral) Med Classific ation: Gastroint estinal Therapy Agents pregabalin 200 mg capsule 03-20 00:00: 00 Yes [id number] 1 capsule 2 TIMES DAILY 1 capsule 2 TIMES DAILY (route: oral) Med Classific ation: Central Nervous System Agents Symbicort 160 mcg-4.5 mcg/actuati on HFA aerosol inhaler 03-20 00:00: 00 Yes [id number] 2 puff 2 TIMES DAILY 2 puff 2 TIMES DAILY (route: inhalation ) Med Classific ation: Respirato ry Therapy Agents trazodone 50 mg tablet 03-20 00:00: 00 Yes [id number] 1-2 tablet DAILY 1-2 tablet DAILY (route: oral) Med Classific ation: Central Nervous System Agents valacyclovi r 1 gram tablet 03-20 00:00: 00 Yes [id number] 1 tablet 3 TIMES DAILY 1 tablet 3 TIMES DAILY (route: oral) Med Classific ation: Anti-Infe ctive Agents Ventolin HFA 90 mcg/actuati on aerosol inhaler 03-20 00:00: 00 Yes [id number] 2 puff EVERY 6 HOURS 2 puff EVERY 6 HOURS (route: inhalation ) Med Classific ation: Respirato ry Therapy Agents nitrofurant oin 100 mg tablet 03-25 00:00: 00 04-02 23:59 :00 No [id number] 100 mg 2 TIMES DAILY 100 mg 2 TIMES DAILY (route: oral) Med Classific ation: Genitouri nary Therapy Vital Signs Vital Name Observation Time Observation Value Commen ts Temperature 2025-04-08 14:04:00.000 98.9 [degF] Temperature 2025-04-08 11:48:00.000 97 [degF] Temperature 2025-04-03 10:13:00.000 97.2 [degF] Temperature 2025-03-25 14:23:00.000 97.5 [degF] Temperature 2025-03-20 14:40:00.000 98.2 [degF] BMI (%) 2025-03-20 14:40:00.000 32 kg/m2 Height 2025-03-20 14:40:00.000 66 [in_us] Pulse 2025-04-08 14:04:00.000 77 /min Pulse 2025-04-08 11:48:00.000 78 /min Pulse 2025-04-03 10:13:00.000 100 /min Pulse 2025-03-25 14:23:00.000 89 /min Pulse 2025-03-20 14:40:00.000 99 /min O2 Saturation (%) 2025-04-08 14:04:00.000 98 % O2 Saturation (%) 2025-04-08 11:48:00.000 96 % O2 Saturation (%) 2025-04-03 10:13:00.000 96 % O2 Saturation (%) 2025-03-25 14:23:00.000 95 % O2 Saturation (%) 2025-03-20 14:40:00.000 95 % Respirations 2025-04-08 14:04:00.000 16 /min Respirations 2025-04-08 11:48:00.000 18 /min Respirations 2025-04-03 10:13:00.000 18 /min Respirations 2025-03-25 14:23:00.000 18 /min Respirations 2025-03-20 14:40:00.000 18 /min Weight (lbs) 2025-03-20 14:40:00.000 200 [lb_av] Systolic Blood Pressure 2025-04-08 14:04:00.000 146 mm [Hg] Systolic Blood Pressure 2025-04-08 11:48:00.000 128 mm [Hg] Systolic Blood Pressure 2025-04-03 10:13:00.000 96 mm[ Hg] Systolic Blood Pressure 2025-03-25 14:23:00.000 120 mm [Hg] Systolic Blood Pressure 2025-03-20 14:40:00.000 122 mm [Hg] Diastolic Blood Pressure 2025-04-08 14:04:00.000 98 mm [Hg] Diastolic Blood Pressure 2025-04-08 11:48:00.000 90 mm [Hg] Diastolic Blood Pressure 2025-04-03 10:13:00.000 66 mm [Hg] Diastolic Blood Pressure 2025-03-25 14:23:00.000 84 mm [Hg] Diastolic Blood Pressure 2025-03-20 14:40:00.000 64 mm [Hg] Plan of Treatment Planned Activity Planned Date Details Comments Future Scheduled Test SKILLED NU RSE TO EVALUATE PATIENT, IDENTIFY PRIMARY AND CO-MORBID CONDITIONS CODED PER CODING GUIDELINES INCLUDING SEPSIS DUE TO ESCHERICHIA COLI [E. COLI], ACUTE KIDNEY FAILURE, UNSPECIFIED, TUBULO-INTERSTITIAL NEPHRITIS, NOT SPCF ACUTE OR CHRONIC, PANLOBULAR EMPHYSEMA, MAJOR DEPRESSIVE DISORDER, RECURRENT, MILD, THROMBOCYTOPENIA, UNSPECIFIED, AND DEVELOP PATIENT SPECIFIC PLAN OF CARE THAT INCLUDES PATIENT GOAL FOR HOME HEALTH. [code = SKILLED NURSE TO EVALUATE PATIENT, IDENTIFY PRIMARY AND CO-MORBID CONDITIONS CODED PER CODING GUIDELINES INCLUDING SEPSIS DUE TO ESCHERICHIA COLI [E. COLI], ACUTE KIDNEY FAILURE, UNSPECIFIED, TUBULO-INTERSTITIAL NEPHRITIS, NOT SPCF ACUTE OR CHRONIC, PANLOBULAR EMPHYSEMA, MAJOR DEPRESSIVE DISORDER, RECURRENT, MILD, THROMBOCYTOPENIA, UNSPECIFIED, AND DEVELOP PATIENT SPECIFIC PLAN OF CARE THAT INCLUDES PATIENT GOAL FOR HOME HEALTH.] Future Scheduled Test [facility] MAY ACCEPT ORDERS FROM THE FOLLOWING PHYSICIANS: PCP, ON-CALL, AND ALL TREATING PHYSICIANS [code = HOME HEALTH AGENCY MAY ACCEPT ORDERS FROM THE FOLLOWING PHYSICIANS: PCP, ON-CALL, AND ALL TREATING PHYSICIANS] Future Scheduled Test SKILLED NU RSE FOR O/A, TEACHING RELATED TO E COLI FOR EARLY IDENTIFICATION OF EXACERBATION OF DISEASE PROCESS. [code = SKILLED NURSE FOR O/A, TEACHING RELATED TO E COLI FOR EARLY IDENTIFICATION OF EXACERBATION OF DISEASE PROCESS.] Future Scheduled Test SKILLED NU RSE FOR O/A AND SKILLED TEACHING RELATED TO SIGNS AND SYMPTOMS OF INFECTION AND INFECTION CONTROL MEASURES. [code = SKILLED NURSE FOR O/A AND SKILLED TEACHING RELATED TO SIGNS AND SYMPTOMS OF INFECTION AND INFECTION CONTROL MEASURES.] Future Scheduled Test SKILLED NU RSE FOR MONITORING, O/A AND TEACHING RELATED TO MANAGEMENT OF ANTICOAGULATION THERAPY INCLUDING DIET, MEDICATION SIDE EFFECTS, SAFETY MEASURES TO PREVENT INJURY, AND S/S TO REPORT. [code = SKILLED NURSE FOR MONITORING, O/A AND TEACHING RELATED TO MANAGEMENT OF ANTICOAGULATION THERAPY INCLUDING DIET, MEDICATION SIDE EFFECTS, SAFETY MEASURES TO PREVENT INJURY, AND S/S TO REPORT. ] Future Scheduled Test SKILLED NU RSE TO INSTRUCT PATIENT/CAREGIVER ON COPD TO INCLUDE TEACHING AND SELF-MANAGEMENT RELATED TO COPD DISEASE PROCESS, SIGNS AND SYMPTOMS, AND COMPLICATIONS. [code = SKILLED NURSE TO INSTRUCT PATIENT/CAREGIVER ON COPD TO INCLUDE TEACHING AND SELF-MANAGEMENT RELATED TO COPD DISEASE PROCESS, SIGNS AND SYMPTOMS, AND COMPLICATIONS.] Future Scheduled Test SKILLED NU RSE TO INSTRUCT PATIENT/CAREGIVER ON PREVENTION OF SEPSIS, AND SIGNS AND SYMPTOMS OF SEPSIS TO REPORT. [code = SKILLED NURSE TO INSTRUCT PATIENT/CAREGIVER ON PREVENTION OF SEPSIS, AND SIGNS AND SYMPTOMS OF SEPSIS TO REPORT.] Future Scheduled Test VIRTUAL SIT FREQUENCY: 12 PRN VIRTUAL VISITS MAY BE PERFORMED UTILIZING TELECOMMUNICATIONS SYSTEM TO OPTIMIZE SKILLED SERVICES FURNISHED ON THE PLAN OF CARE. SKILLED NURSE TO ESTABLISH SUPPORT MEASURES TO MINIMIZE RISK OF REHOSPITALIZATION, AND INSTRUCT PATIENT/CAREGIVER ON METHODS TO REDUCE AVOIDABLE HOSPITALIZATION. [code = VIRTUAL VISIT FREQUENCY: 12 PRN VIRTUAL VISITS MAY BE PERFORMED UTILIZING TELECOMMUNICATIONS SYSTEM TO OPTIMIZE SKILLED SERVICES FURNISHED ON THE PLAN OF CARE. SKILLED NURSE TO ESTABLISH SUPPORT MEASURES TO MINIMIZE RISK OF REHOSPITALIZATION, AND INSTRUCT PATIENT/CAREGIVER ON METHODS TO REDUCE AVOIDABLE HOSPITALIZATION.] Future Scheduled Test PATIENT VANESSA S A RISK OF HOSPITALIZATION AND ED USE. SKILLED NURSE TO ESTABLISH SUPPORT MEASURES TO MINIMIZE RISK OF HOSPITALIZATION AND ED USE, AND INSTRUCT PATIENT/CAREGIVER ON METHODS TO REDUCE AVOIDABLE HOSPITALIZATION AND ED USE. [code = PATIENT HAS A RISK OF HOSPITALIZATION AND ED USE. SKILLED NURSE TO ESTABLISH SUPPORT MEASURES TO MINIMIZE RISK OF HOSPITALIZATION AND ED USE, AND INSTRUCT PATIENT/CAREGIVER ON METHODS TO REDUCE AVOIDABLE HOSPITALIZATION AND ED USE.] Future Scheduled Test SKILLED NU RSE TO PROVIDE INSTRUCTION TO PATIENT/CAREGIVER RELATED TO DISCHARGE PLANNING. [code = SKILLED NURSE TO PROVIDE INSTRUCTION TO PATIENT/CAREGIVER RELATED TO DISCHARGE PLANNING.] Future Scheduled Test SKILLED NU RSE TO PERFORM ENVIRONMENTAL SAFETY RISK ASSESSMENT AND FALL RISK ASSESSMENT AND PROVIDE INSTRUCTION TO IMPLEMENT ENVIRONMENTAL SAFETY AND FALL PREVENTION STRATEGIES THROUGHOUT THE CERTIFICATION PERIOD. SKILLED NURSE WILL MAINTAIN SITUATIONAL AWARENESS AND WILL NOTIFY CLINICAL SURGICAL TECHNOLOGIST AND PHYSICIAN/PROVIDER WITH ANY CHANGE IN CONDITION. [code = SKILLED NURSE TO PERFORM ENVIRONMENTAL SAFETY RISK ASSESSMENT AND FALL RISK ASSESSMENT AND PROVIDE INSTRUCTION TO IMPLEMENT ENVIRONMENTAL SAFETY AND FALL PREVENTION STRATEGIES THROUGHOUT THE CERTIFICATION PERIOD. SKILLED NURSE WILL MAINTAIN SITUATIONAL AWARENESS AND WILL NOTIFY CLINICAL SURGICAL TECHNOLOGIST AND PHYSICIAN/PROVIDER WITH ANY CHANGE IN CONDITION.] Future Scheduled Test SKILLED NU RSE FOR OBSERVATION AND ASSESSMENT OF PATIENTS PAIN LEVEL AND EFFECTIVENESS OF PAIN MANAGEMENT REGIMEN. SKILLED NURSE TO INSTRUCT PATIENT/CAREGIVER REGARDING PHARMACOLOGIC AND NON-PHARMACOLOGIC PAIN CONTROL MEASURES. SKILLED NURSE TO REPORT TO PHYSICIAN IF PAIN IS UNCONTROLLED WITH CURRENT PAIN MANAGEMENT REGIMEN. [code = SKILLED NURSE FOR OBSERVATION AND ASSESSMENT OF PATIENTS PAIN LEVEL AND EFFECTIVENESS OF PAIN MANAGEMENT REGIMEN. SKILLED NURSE TO INSTRUCT PATIENT/CAREGIVER REGARDING PHARMACOLOGIC AND NON-PHARMACOLOGIC PAIN CONTROL MEASURES. SKILLED NURSE TO REPORT TO PHYSICIAN IF PAIN IS UNCONTROLLED WITH CURRENT PAIN MANAGEMENT REGIMEN.] Future Scheduled Test SKILLED NU RSE TO ASSESS PATIENT'S SKIN INTEGRITY AND INSTRUCT PATIENT/CAREGIVER ON MEASURES TO PREVENT PRESSURE ULCERS. [code = SKILLED NURSE TO ASSESS PATIENT'S SKIN INTEGRITY AND INSTRUCT PATIENT/CAREGIVER ON MEASURES TO PREVENT PRESSURE ULCERS.] Future Scheduled Test SKILLED NU RSE TO PROVIDE ASSESSMENT AND TEACHING/REINFORCEMENT OF MANAGEMENT OF DEPRESSION INCLUDING DISEASE PROCESS, MEDICATION MANAGEMENT, COPING SKILLS AND IDENTIFY CHANGES ASSOCIATED WITH DEPRESSIVE DISORDERS FOR EARLY INTERVENTION. [code = SKILLED NURSE TO PROVIDE ASSESSMENT AND TEACHING/REINFORCEMENT OF MANAGEMENT OF DEPRESSION INCLUDING DISEASE PROCESS, MEDICATION MANAGEMENT, COPING SKILLS AND IDENTIFY CHANGES ASSOCIATED WITH DEPRESSIVE DISORDERS FOR EARLY INTERVENTION. ] Future Scheduled Test SN TO INST RUCT PATIENT/CAREGIVER ON COPD MANAGEMENT UTILIZING THE BREATHING WITH CARE SPECIALTY PROGRAM. [code = SN TO INSTRUCT PATIENT/CAREGIVER ON COPD MANAGEMENT UTILIZING THE BREATHING WITH CARE SPECIALTY PROGRAM.] Future Scheduled Test SKILLED NU RSE TO REVIEW PATIENT MEDICATIONS (PRESCRIPTION/OTC). INSTRUCT PATIENT/CAREGIVER ON ALL MEDICATIONS INCLUDING PURPOSE, WHEN TO TAKE, IMPORTANCE OF MEDICATION ADHERENCE, MONITORING OF EFFECTIVENESS, ADVERSE DRUG REACTIONS, POSSIBLE SIDE EFFECTS, AND WHEN TO NOTIFY AGENCY OR PHYSICIAN/PROVIDER OF ANY CONCERNS. [code = SKILLED NURSE TO REVIEW PATIENT MEDICATIONS (PRESCRIPTION/OTC). INSTRUCT PATIENT/CAREGIVER ON ALL MEDICATIONS INCLUDING PURPOSE, WHEN TO TAKE, IMPORTANCE OF MEDICATION ADHERENCE, MONITORING OF EFFECTIVENESS, ADVERSE DRUG REACTIONS, POSSIBLE SIDE EFFECTS, AND WHEN TO NOTIFY AGENCY OR PHYSICIAN/PROVIDER OF ANY CONCERNS.] Goal Patient Goal - R EGAIN STRENGTH, STAY OUT OF HOSPITAL Goal Provider Goal - A PLAN OF CARE WILL BE ESTABLISHED THAT MEETS PATIENT'S JAIL NEEDS AND INCLUDES PATIENT GOAL FOR HOME HEALTH. Goal Provider Goal - ADDITIONAL ORDERS WILL BE RECEIVED FROM ALTERNATE PHYSICIAN IN A TIMELY MANNER THROUGHOUT THE CERTIFICATION PERIOD. Goal Provider Goal - EXACERBATIONS OF GASTROINTESTINAL DISEASE WILL BE PROMPTLY IDENTIFIED AND INTERVENTIONS IMPLEMENTED TO MINIMIZE RISKS TO PATIENT BY END OF EPISODE. Goal Provider Goal - PATIENT/CAREGIVER WILL VERBALIZE/DEMONSTRATE UNDERSTANDING OF S/S OF INFECTION AND INFECTION CONTROL MEASURES. SIGNS AND SYMPTOMS OF INFECTION WILL BE IDENTIFIED AND PHYSICIAN NOTIFIED FOR PROMPT INTERVENTION THROUGHOUT THE CERTIFICATION PERIOD. Goal Provider Goal - PATIENT/CAREGIVER WILL VERBALIZE/DEMONSTRATE UNDERSTANDING OF MANAGEMENT OF ANTICOAGULATION THERAPY AND PT/INR WILL BE MAINTAINED AT A THERAPEUTIC LEVEL BY END OF EPISODE. Goal Provider Goal - PATIENT/CAREGIVER WILL VERBALIZE/DEMONSTRATE KNOWLEDGE AND MANAGEMENT OF COPD BY END OF EPISODE. Goal Provider Goal - PATIENT WILL BE FREE FROM INFECTION AND PATIENT/CAREGIVER WILL VERBALIZE UNDERSTANDING OF SIGNS AND SYMPTOMS AND METHODS TO PREVENT SEPSIS BY END OF THE EPISODE. Goal Provider Goal - PATIENT/CAREGIVER WILL UTILIZE VIRTUAL VISITS TO ACHIEVE GOALS OUTLINED ON THE PLAN OF CARE. PATIENT WILL HAVE SUPPORT MEASURES ESTABLISHED TO PREVENT HOSPITALIZATION AND PATIENT/CAREGIVER WILL VERBALIZE/DEMONSTRATE METHODS TO REDUCE AVOIDABLE HOSPITALIZATION THROUGHOUT THE CERTIFICATION PERIOD. Goal Provider Goal - PATIENT WILL HAVE SUPPORT MEASURES ESTABLISHED TO PREVENT HOSPITALIZATION AND ED USE AND PATIENT/CAREGIVER WILL VERBALIZE/DEMONSTRATE METHODS TO REDUCE AVOIDABLE HOSPITALIZATION AND ED USE BY END OF EPISODE. Goal Provider Goal - PATIENT/CAREGIVER WILL VERBALIZE UNDERSTANDING OF DISCHARGE PLANNING INSTRUCTIONS BY DATE OF DISCHARGE. Goal Provider Goal - PATIENT/CAREGIVER WILL VERBALIZE/DEMONSTRATE EFFECTIVE ENVIRONMENTAL SAFETY AND FALL PREVENTION STRATEGIES, WILL REMAIN SAFE IN THE COMMUNITY, AND WILL BE FREE OF DANGER TO SELF AND OTHERS THROUGHOUT THE CERTIFICATION PERIOD. Goal Provider Goal - PATIENT/CAREGIVER WILL DEMONSTRATE UNDERSTANDING OF PHARMACOLOGIC AND NONPHARMACOLOGIC PAIN CONTROL MEASURES AND PATIENT WILL HAVE IMPROVEMENT IN PAIN INTERFERING WITH ACTIVITY EVIDENCED BY PAIN CONTROLLED AT LEVEL THAT IS ACCEPTABLE TO THE PATIENT BY END OF CERTIFICATION PERIOD. Goal Provider Goal - PATIENT/CAREGIVER WILL VERBALIZE UNDERSTANDING OF PRESSURE ULCER PREVENTION BY END OF THE EPISODE. Goal Provider Goal - PATIENT/CAREGIVER WILL VERBALIZE/DEMONSTRATE UNDERSTANDING OF THE MANAGEMENT OF DEPRESSION THROUGHOUT THE CERTIFICATION PERIOD AND SYMPTOMS ARE IDENTIFIED AND MANAGED TO MAINTAIN PATIENT SAFETY IN THE HOME. Goal Provider Goal - PATIENT/CAREGIVER WILL DEMONSTRATE MANAGEMENT OF COPD A RESULT OF PARTICIPATION IN BREATHING WITH CARE SPECIALTY PROGRAM. Goal Provider Goal - PATIENT/CAREGIVER WILL VERBALIZE UNDERSTANDING OF EDUCATION PROVIDED ON MEDICATIONS BY THE END OF THE CERTIFICATION PERIOD. Progress Notes Progress Notes <paragraph>[Visit Date: 2024 by HERBERT HILLMAN LPN]:</paragraph><paragraph>PATIENT AMB TO ANSWER DOOR WITHOUT ASSISTIVE DEVICE. POSTURE STOOPED AND STIFF. GAIT STEADY AND EVEN. A O X 4 WITH CLEAR SPEECH. VS OBTAINED AND WNL. LCTA WITH PRODUCTIVE COUGH. HR RRR. SKIN P/W/D. BS X 4 WITH ABD SOFT AND NONTENDER. LBM TODAY. DENIES N/V/D. C/O PAIN AT END OF URINATION. PATIENT TO F/U WITH PCP TOMORROW. EDUCATED ON SX OF RESPIRATORY INFECTION THAT NEEDS TO BE REPORTED. EDUCATED ON SX OF BOWEL BLOCKAGE. VOICES NO OTHER C/O AT THIS TIME. SHOWS NO SX OF ACUTE DISTRESS AT THIS TIME. LEFT IN CARE OF SELF.</paragraph> Encounters Start Date/Time End Date/Time Encounter Type Admission Type Attending [facility] Care Facility Care Department Encounter ID Discharge Date Discharge Status Discharge Condition Discharge Reason Percent Goals Met 2025-03-20 00:00:00 2025-05-18 00:00:00 Outpatient NEW ADMISSION [place] [facility] [id number] 15.79
== END 2025-04-14 12:09 | disposition home health service (06) | DRG 871 ==
LOC: ER 15:07 → ICU 04-13 06:17 → MEDSURG 04-13 17:49
PROVIDERS: Admitting Provider Family Medicine; Emergency Provider Family Medicine; PCP Family Medicine; Visit Provider Family Medicine
DX: A41.9 Sepsis, unspecified organism (principal); J18.9 Pneumonia, unspecified organism; R65.21 Severe sepsis with septic shock; N17.9 Acute kidney failure, unspecified; N39.0 Urinary tract infection, site not specified; J44.9 Chronic obstructive pulmonary disease, unspecified; F17.210 Nicotine dependence, cigarettes, uncomplicated; F32.9 Major depressive disorder, single episode, unspecified; Z86.711 Personal history of pulmonary embolism; Z79.01 Long term (current) use of anticoagulants; Z87.440 Personal history of urinary (tract) infections
CPT/HCPCS: 36415; 36573; 36592; 36600; 71045; 71250; 74176; 80053; 81001; 82533; 82803; 83605; 83690; 83735; 83880; 84100; 84145; 84443; 84484; 85025; 86140; 87040; 87077; 87086; 87186; 87637; 93005; 94664; 96365; 96366; 96367; 96375; 96376; 97161; 97165; 99285; C1751; J0456; J0696; J0834; J2270; J2405; J2470; J2543; J3370; J3372; J7030; J7050; J9999; P9046

== ENCOUNTER → 2025-04-28 08:24 | Outpatient (BNVA) | payer MEDICAID, SELFPAY | PROVIDERS: PCP Family Medicine; Visit Provider Orthopaedic Surgery | DX: Z98.1 Arthrodesis status (principal); G89.18 Other acute postprocedural pain | CPT/HCPCS: 72100; 99024 ==

== ENCOUNTER 2025-05-26 20:02 | Emergency (ER) | payer MEDICAID, SELFPAY ==
--- OUTSIDE RECORDS SUMMARY | 2025-05-26 20:06 | XMS_ITS | CCD ---
Author Name Interface, [id number] [address] Organization [facility] [place] [address] Care Team Providers Care Culinary Director Name Role Phone Katerina Mora Unavailable Unavailable Reason for Visit Social History Date Name Value Sex Female
--- OUTSIDE RECORDS SUMMARY | 2025-05-26 20:06 | XMS_ITS | Patient Health Record ---
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 (Z79.891) Active confirmed Problem Chronic pain (65918672) Other chronic pain (G89.29) Active confirmed Problem Degeneration of lumbar intervertebral disc (44169569) Other intervertebral disc degeneration, lumbar region (M51.36) Active confirmed Problem Right side sciatica (822674518589070) Sciatica, right side (M54.31) Active confirmed Problem Sciatica (29381056) Lumbago with sciatica, right side (M54.41) Active confirmed Problem Sciatica (47834471) Lumbago with sciatica, left side (M54.42) Active confirmed Problem Long-term current use of drug therapy (166311026) Other long-term (current) drug therapy (Z79.899) Active confirmed Problem Low back pain (finding) (741463570) Vertebrogenic low back pain (M54.51) Active confirmed Plan Of Treatment No Information Insurance Providers Payer Name Payer Address Payer Phone Subscriber Number Group Number Insured Name Patient Relationship to Insured Coverage Start Date Coverage End Date [place] [address] [place] [address] [id number] Kailyn Jeffers Self - patient is the insured Medical (General) History Medical History History ICD Code Chronic low back pain with sciatica care home prescription opiate use DDD lumbar Sciatica, right side COPD Stage 3 chronic kidney disease Radal nerve palsy Right foot drop Vitamin D deficiency Mixed hyperlipidemia
--- OUTSIDE RECORDS SUMMARY | 2025-05-26 20:06 | XMS_ITS | CCD ---
Author Name Interface, [id number] [address] Organization [facility] [place] [address] Care Team Providers Care Livestock Farmworker Name Role Phone Katerina Mora Unavailable Unavailable Reason for Visit Social History
--- OUTSIDE RECORDS SUMMARY | 2025-05-26 20:06 | XMS_ITS | Patient Health Record ---
Author Organization [facility] Address [address] [place] [address] Care Team Providers Care Hydraulic Rockbreaker Operator Name Role Phone Bhavesh Harp Primary Care Provider [phone] Reason For Referral No Information Plan Of Treatment No Information Insurance Providers Payer Name Payer Address Payer Phone Subscriber Number Group Number Insured Name Patient Relationship to Insured Coverage Start Date Coverage End Date Medicaid [address] [place] [address] [id number] Kailyn Jeffers Self - patient is the insured Medicaid Dental [address] [place] [id number] Kailyn Jeffers Self - patient is the insured
[2025-05-26 20:10] VITALS: BP 144/99; PULSE 82; RESP 16; TEMP 36.4; O2SAT 96; BMI 32.3
[2025-05-26 20:38] LABS: Hematocrit 47.9 % (36-47); Hemoglobin 15.90 g/dL (11.27-16.99); Mean Corpuscular HGB Conc 33.2 g/dL (30-55); Mean Corpuscular Hemoglobin 29.3 pg (27-33); Mean Corpuscular Volume 88.4 fl (85-98); Platelet Count 198 10^3/cmm (157-399); Red Blood Count 5.42 10^6/uL (3.85-5.65); White Blood Count 10.40 10^3/uL (3.29-11.43)
[2025-05-26 20:44] VITALS: BP 147/88; PULSE 81; RESP 16; O2SAT 97
[2025-05-26 20:53] LABS: Alanine Aminotransferase 8 U/L (0-33); Albumin Level 4.4 g/dL (3.5-5.2); Alkaline Phosphatase 98 U/L (35-105); Anion Gap 22.5 (5-19); Aspartate Amino Transferase 14 U/L (0-32); Blood Urea Nitrogen 20 mg/dL (6-20); Calcium 9.9 mg/dL (8.5-10.5); Carbon Dioxide 20 mmol/L (22-29); Chloride 101 mmol/L (98-107); Creatinine Clr Calc Pharmacy 47.5122; Globulin 3.9 g/dL (1.3-4.6); Glucose 88 mg/dL (65-115); Lipase 16 U/L (13-60); Osmolality Calculated 292 mOsm/kg (285-295); Potassium 3.5 mmol/L (3.5-5.1); Sodium 140 mmol/L (136-145); Total Protein 8.3 g/dL (6.6-8.7)
[2025-05-26 21:00] VITALS: BP 139/96; PULSE 74; RESP 16; O2SAT 97
[2025-05-26 21:19] LABS: Absolute Segmented Neutrophil 3.8 10/cmm (1.6-7.1); Atypical Lymphs 16.0 % (0-5); Slide Review Slide Review Perform; Total Cells Counted 100 (0-100)
--- NOTE | 2025-05-26 21:32 | XRR_ITS ---
PROCEDURE INFORMATION: Exam: XR Chest Exam date and time: 05/26/2025 9:33 PM Age: 54 years old Clinical indication: Shortness of breath; Prior surgery; Surgery date: 6+ months; Surgery type: C. Spine; Additional info: SOB TECHNIQUE: Imaging protocol: Radiologic exam of the chest. Views: 1 view. COMPARISON: CR XR chest 1V portable [id number] 04/13/2025 8:47 AM FINDINGS: Lungs: Bibasilar strand-like reticulation unchanged from 04/13/2025. No new opacity . Small calcified right apical granuloma. Pleural spaces: Unremarkable. No pleural effusion. No pneumothorax. Heart/Mediastinum: Unremarkable. No cardiomegaly. Bones/joints: Partially imaged cervical fusion hardware. XR/XR chest 1V portable [id number] IMPRESSION: No new airspace opacity. Mild chronic bibasilar reticular interstitial opacities or scarring again demonstrated.
[2025-05-26] MEDS: methylPREDNISolone sod succ 125 mg/2 mL INJ IVP (21:53)
[2025-05-26 21:56] VITALS: PULSE 73; RESP 18; O2SAT 99
[2025-05-26 21:59] VITALS: PULSE 83; RESP 18; O2SAT 97
[2025-05-26 22:00] VITALS: BP 133/87; PULSE 84; RESP 16; O2SAT 93
[2025-05-26 22:36] LABS: Glucose Urine UA Negative (Normal); Nitrate Urine Negative (Negative); Specific Gravity, Urine 1.018 (1.005-1.030)
[2025-05-26 22:41] LABS: Add Urine Microscopic? YES
[2025-05-26 23:10] LABS: UA Slide Review UA Slide Review Perf
--- NOTE | 2025-05-26 23:53 | CTR_ITS ---
PROCEDURE INFORMATION: Exam: CT Abdomen And Pelvis With Contrast Exam date and time: 05/27/2025 1:02 AM Age: 54 years old Clinical indication: Abdominal pain; Flank; Right; Additional info: Flank pain TECHNIQUE: Imaging protocol: Computed tomography of the abdomen and pelvis with contrast. Radiation optimization: All CT scans at this facility use at least one of these dose optimization techniques: automated exposure control; mA and/or kV adjustment per patient size (includes targeted exams where dose is matched to clinical indication); or iterative reconstruction. Contrast material: OMNI 350; Contrast volume: 100 ml; Contrast route: INTRAVENOUS (IV); COMPARISON: 1. CT lumbar spine wo con* [id number] 11/27/2024 3:49 PM 2. MR MRCP [id number] 02/12/2025 9:[address] kidney stone [id number] 02/11/2025 12:44 PM RADIATION DOSE METRICS: Total DLP (mGy-cm): 850.9 FINDINGS: Lungs: Mild dependent atelectasis. Diaphragm: Small hiatal hernia. Liver: Normal. No mass. Gallbladder and biliary ducts: Normal. No calcified stones. No ductal dilation. Pancreas: Normal. No ductal dilation. Spleen: No splenomegaly. Calcified granulomata. Adrenal glands: Normal. No mass. Kidneys and ureters: Heterogeneous striated enhancement pattern of both kidneys. Otherwise unremarkable. Stomach and bowel: Unremarkable. No bowel dilatation to suggest obstruction. Appendix: No evidence of appendicitis. Intraperitoneal space: Unremarkable. No free air. No significant fluid collection. Vasculature: Moderate systemic atherosclerosis with stable fusiform infrarenal abdominal aortic dilatation measuring 2.8 cm. Lymph nodes: Unremarkable. No enlarged lymph nodes. Urinary bladder: Underdistended urinary bladder with circumferential wall thickening. Reproductive: Unremarkable as visualized. Bones/joints: No acute fracture. Degenerative changes along the spine and sacroiliac joints. Stable lumbar spine postsurgical changes with posterior instrumented fusion hardware from L4-S1 and hardware fixation of bilateral sacroiliac joints. Stable appearance of residual screw tracts at the L3 vertebra with stable appearance of corticated bilateral pedicle defects. Soft tissues: Unremarkable. CT/CT abdomen pelvis w con* [id number] IMPRESSION: 1. Findings of ascending urinary tract infection with bladder wall thickening suggestive of cystitis and heterogeneous striated enhancement pattern of both kidneys typical of pyelonephritis. 2. Additional chronic and incidental findings as above.
[2025-05-27] VITALS: BP 109/83; PULSE 72; RESP 16; O2SAT 95
--- NOTE | 2025-05-27 00:06 | ED_ITS ---
Documented by User: Radha Pino NP 05/27/25 18:39 HPI - Abdominal Pain 2 General: Chief Complaint: Abdominal Pain Stated Complaint: n/v/f/d, lower back pain, abd pain Time Seen by Provider: 05/26/25 20:47 History of Present Illness: 54-year-old female patient presents to [facility] emergency department complaining of nausea vomiting back and flank pain that radiates around into her abdomen. Patient states that she has had bodyaches. Patient denies chest pain or shortness of breath patient states she is a smoker and has felt wheezy. Patient denies any fever. Patient denies any cough or congestion. Related Data Home Medications ?Medication ?Instructions ?Recorded ?Confirmed acetaminophen 500 mg tablet 1,000 mg PO TID PRN Pain 0 12/03/19 04/28/25 (Tylenol Extra Strength) budesonide-formoterol HFA 160 1 puff inhalation DAILY 01/22/24 04/28/25 mcg-4.5 mcg/actuation aerosol inhaler (Symbicort) buspirone 5 mg tablet 5 mg PO DAILY 01/15/2504/28 ipratropium 20 mcg-albuterol 100 20 - 100 puff inhalat ion DAILY 01/15/25 04/28/25 mcg/actuation mist for inhalation (Combivent Respimat) albuterol sulfate 90 mcg/actuation 2 puff inhalation Q 6H PRN 02/11/25 04/28/25 aerosol inhaler (Ventolin HFA) Shortness Of Breath duloxetine 60 mg capsule,delayed 601 mg PO DAILY 02/1104/28/25 release mupirocin 2 % topical ointment 1 applic topical BID GA N Skin 02/11/25 04/28/25 Irritation pregabalin 200 mg capsule 200 mg PO BID 02/11/2504/28 trazodone 50 mg tablet 50 - 100 mg PO .bedtime PRN sleep 02/11/25 04/28/25 apixaban 5 mg tablet (Eliquis) 5 mg PO BID 03/25/25 oxycodone 5 mg tablet 5 mg PO TID PRN Pain 5 04/28/25 polyethylene glycol 3350 17 17 g PO DAILY 06/02/25 06/ 17/25 gram/dose oral powder Previous Rx's ?Medication ?Instructions ?Recorded naloxone 4 mg/actuation nasal 1 spray intranasal Q3M # 2 ea 03/25/24 spray (Narcan) cefdinir 300 mg capsule 300 mg PO BID 10 days #20 ca ps 05/27/25 Allergies Allergy/AdvReac Type Severity Reaction Status Date / Time bacitracin (From Neosporin Allergy BLISTERS Verified 05/26/25 20:18 ([id number])) neomycin (From Neosporin Allergy BLISTERS Verified 05/26/25 20:18 ([id number])) polymyxin B (From Neosporin Allergy BLISTERS Verified 05/26/25 20:18 ([id number])) Review of Systems 2 General: Reports: 10 or more systems reviewed and unremarkable except in HPI and below PFSH ED 2 PFSH: Medical History Cigarette smoker motivated to quit Heavy cigarette smoker Alcohol use disorder, moderate, in sustained remission Major depressive disorder, recurrent severe without psychotic features Chronic post-traumatic stress disorder Generalized joint pain Lumbar spondylosis Spinal stenosis of lumbar region with radiculopathy Smoker Surgical History (Updated 04/15/25 @ 00:00 by RACHELLE Momin) S/P tonsillectomy H/O spinal fusion 1998 [facility] C5-C6 DISCECTOMY/ FUSION/ FIXATION Status post carpal tunnel release of both wrists Status post delivery S/P excision of ganglion cyst S/P correction of deviated nasal septum Hx of foot surgery (~2017) RIGHT FOOT SURGERY POST WOUND NOT HEALING OSTEOMYLITIS Family History Father Cancer STOMACH CANCER Mother Dementia Other Heart disease Social History Smoking and tobacco/nicotine status: former use of tobacco/nicotine Quit status (tobacco/nicotine): considering quitting Second hand smoke exposure: Yes Alcohol intake: current Alcohol intake frequency: holidays/special occasions only Substance/Drug Use: current Substance/Drug use frequency: few times a month Other substance/drug use details: smokes about once a week Adopted: No Caregiver/support person: No Lives independently: Yes Household members: none Housing: Apartment Marital status: Marital status details: since 2009 Number of children: 3 Number of grandchildren: 6 Highest education level completed: GED or Equivalent service: No Current occupational status: disabled Current occupation: disabled Current occupational exposures/hazards: No Pets and animals: No Leisure activites: other Leisure activities details: TV and plant weinstein Sexually active: No Do you think of yourself as: Straight/Heterosexual Current gender identity: Female Celeste/Anglican: Worship Special celeste needs: No Agree to transfusion: Yes Female Reproductive History: Para: 3 Spontaneous abortions: No Physical Exam 2 Const: GENERAL APPEARANCE: cooperative ORIENTATION/CONSCIOUSNESS: Yes awake, Yes oriented to person, Yes oriented to place and Yes oriented to time HENMT: COMMON NORMALS: normocephalic, atraumatic and hearing grossly normal bilaterally HEAD & SCALP: normocephalic and atraumatic Resp: AUSCULTATION: rhonchi and wheezes Cardio: COMMON NORMALS: regular rate, regular rhythm and No murmurs present (Cardio) RATE: regular rate RHYTHM: regular rhythm GI: COMMON NORMALS: No hepatosplenomegaly present AUSCULTATION: Yes normoactive bowel sounds PALPATION: Yes Tenderness to palpation present (GI) (Generalized mild tenderness), No Guarding due to palpation present (GI) and Yes No hepatosplenomegaly present Extremity: COMMON NORMALS: normal to inspection, capillary refill normal, no clubbing, cyanosis or edema, no calf tenderness and no pedal edema Neuro: SENSORIUM/ORIENTATION: Yes oriented to person, Yes oriented to place and Yes oriented to time Skin: COMMON NORMALS: no rashes or lesions noted GENERAL SKIN EXAM: no rashes or lesions noted Course 2 Vital Signs: Vital signs: Vital Signs Temperature 97.5 F L 05/26/25 20:10 Pulse Rate 71 05/27/25 03:36 Respiratory Rate 16 05/27/25 03:36 Blood Pressure 137/87 05/27/25 03:36 Pulse Oximetry 97 05/27/25 03:36 Oxygen Delivery Me thod Room Air 05/27/25 03:00 MDM - Abdominal Pain Medical Decision Making 54-year-old female patient presents to the emergency department complaining of nausea vomiting back and flank pain that radiates around into her abdomen. Patient states that she has had bodyaches. Patient denies chest pain or shortness of breath patient states she is a smoker and has felt wheezy. Patient denies any fever. Patient denies any cough or congestion. Lab Data 05/26/25 20:25 05/26/25 20:25 Labs/Radiology: Radiology Impressions Chest X-Ray 05/26/25 21:32 IMPRESSION: No new airspace opacity. Mild chronic bibasilar reticular interstitial opacities or scarring again demonstrated. Abdomen/Pelvis CT 05/26/25 23:53 IMPRESSION: 1. Findings of ascending urinary tract infection with bladder wall thickening suggestive of cystitis and heterogeneous striated enhancement pattern of both kidneys typical of pyelonephritis. 2. Additional chronic and incidental findings as above. Laboratory Results WBC 10.40 10^3/uL (3.29-11.43) 05/26/25 20: RBC 5.42 10^6/uL (3.85-5.65) 05/26/25 20: Hgb 15.90 g/dL (11.27-16.99) 05/26/25 20:25 Hct 47.9 % (36-47) H 05/26/25 20:25 MCV 88.4 fl (85-98) 05/26/25 20: MCH 29.3 pg (27-33) 05/26/25 20: MCHC 33.2 g/dL (30-55) 05/26/25 20: RDW 14.3 % (12.1-15.1) 05/26/25 20: Plt Count 198 10^3/cmm (157-399) 05/26/25 20:25 MPV 12.0 fL (7.4-10.4) H 05/26/25 20:25 Lymph % (Auto) Not Reportable 05/26/25 20:25 [place] % (Auto) Not Reportable 05/26/25 20:25 Lymph # (Auto) Not Reportable 05/26/25 20:25 [place] # (Auto) Not Reportable 05/26/25 20:25 Total Counted 100 (0-100) 05/26/25 20: Atypical Lymphs % 16.0 % (0-5) H 05/26/25 20:25 Segmented Neutrophils 37 % 05/26/25 20:25 Band Neutrophils Not Reportable 05/26/25 20:25 Absolute Lymphocytes 5.6 10^3/cmm (1.2-3.4) H 05/26/25 20:25 Lymphocytes (Manual) 38 % 05/26/25 20:25 Monocytes (Manual) 8.0 % 05/26/25 20:25 Absolute Monocytes 0.8 10^3/cmm (0.1-0.6) H 05/26/25 20:25 Eosinophils (Manual) 1 % 05/26/25 20:25 Absolute Eosinophils 0.1 10^3/cmm (0.0-0.7) 05/26/25 20:25 Basophils (Manual) 0.0 % 05/26/25 20:25 Absolute Basophils 0.0 10^3/cmm (0.0-0.2) 05/26/25 20:25 Platelet Estimate Normal (Normal) 05/26/25 20:25 Sodium 140 mmol/L (136-145) 05/26/25 20: Potassium 3.5 mmol/L (3.5-5.1) 05/26/25 20:25 Chloride 101 mmol/L (98-107) 05/26/25 20:25 Carbon Dioxide 20 mmol/L (22-29) L 05/26/25 20:25 Anion Gap 22.5 (5-19) H 05/26/25 20:25 BUN 20 mg/dL (6-20) 05/26/25 20:25 Creatinine 1.5 mg/dL (0.5-0.9) H 05/26/25 20:25 GFR Calculation 35.9 mL/min (90-130) L 05/26/25 20:25 Glucose 88 mg/dL (65-115) 05/26/25 20:25 Calculated Osmolality 292 mOsm/kg (285-295) 05/26/25 20:25 Calcium 9.9 mg/dL (8.5-10.5) 05/26/25 20:25 Total Bilirubin 0.4 mg/dL (0.15-1.2) 05/26/25 20:25 AST 14 U/L (0-32) 05/26/25 20:25 ALT 8 U/L (0-33) 05/26/25 20:25 Alkaline Phosphatase 98 U/L (35-105) 05/26/25 20:25 Total Protein 8.3 g/dL (6.6-8.7) 05/26/25 20:25 Albumin 4.4 g/dL (3.5-5.2) 05/26/25 20: Globulin 3.9 g/dL (1.3-4.6) 05/26/25 20:25 Lipase 16 U/L (13-60) 05/26/25 20:25 Urine Color Yellow (Yellow) 05/26/25 22:18 Urine Appearance Cloudy (CLEAR) A 05/26/25 22:18 Urine pH 5.5 (5-7) 05/26/25 22:18 Ur Specific [place] 1.018 (1.005-1.030) 05/26/25 22:18 Urine Protein 1+ (Negative) A 05/26/25 22:18 Urine Glucose (UA) Negative (Normal) 05/26/25 22:18 Urine Ketones 1+ (Negative) H 05/26/25 22:18 Urine Blood Non-haemolysed trace (Negative) 05/26/25 22:18 Urine Nitrate Negative (Negative) 05/26/25 22:18 Urine Bilirubin Negative (Negative) 05/26/25 22:18 Urine Urobilinogen 1.0 mg/dL (Negative) 05/26/25 22:18 Ur Leukocyte Esterase 2+ (Negative) A 05/26/25 22:18 Urine RBC 11-20 /hpf (0-2) H 05/26/25 22:18 Urine WBC >100 /hpf (0-5) H 05/26/25 22:18 Ur Squamous Epith Cells 0-5 /hpf (0-5) 05/26/25 22:18 Amorphous Sediment Not Reportable 05/26/25 22:18 Urine Bacteria 4+ /hpf (NONE) H 05/26/25 22:18 Hyaline Casts 11.31 /lpf 05/26/25 22:18 Urine Mucus 2+ /hpf 05/26/25 22:18 Discharge Plan Discharge Patient Disposition: Home Clinical Impression: Pyelonephritis Condition: Stable Prescriptions: New cefdinir 300 mg capsule 300 mg PO BID 10 Days Qty: 20 0RF No Action acetaminophen [Tylenol Extra Strength] 500 mg tablet 1,000 mg PO TID PRN (Reason: Pain) budesonide-formoterol [Symbicort] 160-4.5 mcg/actuation HFA aerosol inhaler 1 puff inhalation DAILY Eliquis 5 mg tablet 5 mg PO BID naloxone [Narcan] 4 mg/actuation spray,non-aerosol 1 spray intranasal Q3M Qty: 2 0RF Rx Instructions: spray 1 dose into ONE nostril; alternate nostrils w each dose until help arrives buspirone 5 mg tablet 5 mg PO DAILY Combivent Respimat 20-100 mcg/actuation mist 20 - 100 puff INHALATION DAILY polyethylene glycol 3350 17 gram/dose powder 17 g PO DAILY oxycodone 5 mg tablet 5 mg PO TID PRN (Reason: Pain) mupirocin 2 % ointment 1 applic TOPICAL BID PRN (Reason: Skin Irritation) albuterol sulfate [Ventolin HFA] 90 mcg/actuation HFA aerosol inhaler 2 puff INHALATION Q6H PRN (Reason: Shortness Of Breath) duloxetine 60 mg capsule,delayed release(DR/EC) 601 mg PO DAILY pregabalin 200 mg capsule 200 mg PO BID trazodone 50 mg tablet 50 - 100 mg PO .bedtime PRN (Reason: sleep) Discharge Orders: Discharge ED (Routine); Ordered 05/27/25 Ordered By: Yobany Rodriguez Referrals: Yobany Iverson [Primary Care Provider, Family Practice] Patient Instructions: Patient Portal & Yue Instructions, Pyelonephritis Activity Restrictions/Additional Instructions: You were prescribed antibiotics for bilateral kidney infections based on prior urine culture results. If you have worsening pain, fever, confusion, dysuria, frequency, please return to the emergency department as you may require IV antibiotics Print Language: Colombian Coding Level of Care Code ED Supervisor Dyer for Chg Fwd Documented by User: Yobany Rodriguez MD 05/27/25 03:33 HPI - Abdominal Pain 2 General: Chief Complaint: Abdominal Pain Stated Complaint: n/v/f/d, lower back pain, abd pain Time Seen by Provider: 05/26/25 20:47 Related Data Home Medications ?Medication ?Instructions ?Recorded ?Confirmed acetaminophen 500 mg tablet 1,000 mg PO TID PRN Pain 0 12/03/19 04/28/25 (Tylenol Extra Strength) budesonide-formoterol HFA 160 1 puff inhalation DAILY 01/22/24 04/28/25 mcg-4.5 mcg/actuation aerosol inhaler (Symbicort) buspirone 5 mg tablet 5 mg PO DAILY 01/15/2504/28 ipratropium 20 mcg-albuterol 100 20 - 100 puff inhalat ion DAILY 01/15/25 04/28/25 mcg/actuation mist for inhalation (Combivent Respimat) albuterol sulfate 90 mcg/actuation 2 puff inhalation Q 6H PRN 02/11/25 04/28/25 aerosol inhaler (Ventolin HFA) Shortness Of Breath duloxetine 60 mg capsule,delayed 601 mg PO DAILY 02/1104/28/25 release mupirocin 2 % topical ointment 1 applic topical BID GA N Skin 02/11/25 04/28/25 Irritation pregabalin 200 mg capsule 200 mg PO BID 02/11/2504/28 trazodone 50 mg tablet 50 - 100 mg PO .bedtime PRN sleep 02/11/25 04/28/25 apixaban 5 mg tablet (Eliquis) 5 mg PO BID 03/25/25 oxycodone 5 mg tablet 5 mg PO TID PRN Pain 5 04/28/25 polyethylene glycol 3350 17 17 g PO DAILY 04/13/25 gram/dose oral powder Previous Rx's ?Medication ?Instructions ?Recorded naloxone 4 mg/actuation nasal 1 spray intranasal Q3M # 2 ea 03/25/24 spray (Narcan) cefdinir 300 mg capsule 300 mg PO BID 10 days #20 ca ps 05/27/25 Allergies Allergy/AdvReac Type Severity Reaction Status Date / Time bacitracin (From Neosporin Allergy BLISTERS Verified 05/26/25 20:18 ([id number])) neomycin (From Neosporin Allergy BLISTERS Verified 05/26/25 20:18 ([id number])) polymyxin B (From Neosporin Allergy BLISTERS Verified 05/26/25 20:18 ([id number])) PFSH ED 2 PFSH: Medical History Cigarette smoker motivated to quit Heavy cigarette smoker Alcohol use disorder, moderate, in sustained remission Major depressive disorder, recurrent severe without psychotic features Chronic post-traumatic stress disorder Generalized joint pain Lumbar spondylosis Spinal stenosis of lumbar region with radiculopathy Smoker Surgical History (Updated 04/15/25 @ 00:00 by RACHELLE Momin) S/P tonsillectomy H/O spinal fusion 1998 [facility] C5-C6 DISCECTOMY/ FUSION/ FIXATION Status post carpal tunnel release of both wrists Status post delivery S/P excision of ganglion cyst S/P correction of deviated nasal septum Hx of foot surgery (~2017) RIGHT FOOT SURGERY POST WOUND NOT HEALING OSTEOMYLITIS Family History Father Cancer STOMACH CANCER Mother Dementia Other Heart disease Social History Smoking and tobacco/nicotine status: former use of tobacco/nicotine Quit status (tobacco/nicotine): considering quitting Second hand smoke exposure: Yes Alcohol intake: current Alcohol intake frequency: holidays/special occasions only Substance/Drug Use: current Substance/Drug use frequency: few times a month Other substance/drug use details: smokes about once a week Adopted: No Caregiver/support person: No Lives independently: Yes Household members: none Housing: Apartment Marital status: Marital status details: since 2009 Number of children: 3 Number of grandchildren: 6 Highest education level completed: GED or Equivalent service: No Current occupational status: disabled Current occupation: disabled Current occupational exposures/hazards: No Pets and animals: No Leisure activites: other Leisure activities details: TV and plant weinstein Sexually active: No Do you think of yourself as: Straight/Heterosexual Current gender identity: Female Celeste/Anglican: Worship Special celeste needs: No Agree to transfusion: Yes Course 2 Vital Signs: Vital signs: Vital Signs Temperature 97.5 F L 05/26/25 20:10 Pulse Rate 71 05/27/25 03:36 Respiratory Rate 16 05/27/25 03:36 Blood Pressure 137/87 05/27/25 03:36 Pulse Oximetry 97 05/27/25 03:36 Oxygen Delivery Me thod Room Air 05/27/25 03:00 MDM - Abdominal Pain Medical Decision Making 54-year-old female patient presents to the emergency department complaining of nausea vomiting back and flank pain that radiates around into her abdomen. Patient states that she has had bodyaches. Patient denies chest pain or shortness of breath patient states she is a smoker and has felt wheezy. Patient denies any fever. Patient denies any cough or congestion. Patient signed out to me, Dr. Rodriguez, at shift change pending CT scan urinalysis shows concern for UTI. CT scan shows bilateral perinephric stranding consistent with pyelonephritis. She was given a single dose of IV ceftriaxone and will be discharged with cefdinir based on prior urine culture results. She was offered hospitalization but she states that her niece is getting in 2 days and she cannot be in the hospital at that time. She knows that if symptoms get worse she should return to the emergency department for IV antibiotics.. Lab Data 05/26/25 20:25 05/26/25 20:25 Labs/Radiology: Radiology Impressions Chest X-Ray 05/26/25 21:32 IMPRESSION: No new airspace opacity. Mild chronic bibasilar reticular interstitial opacities or scarring again demonstrated. Abdomen/Pelvis CT 05/26/25 23:53 IMPRESSION: 1. Findings of ascending urinary tract infection with bladder wall thickening suggestive of cystitis and heterogeneous striated enhancement pattern of both kidneys typical of pyelonephritis. 2. Additional chronic and incidental findings as above. Laboratory Results WBC 10.40 10^3/uL (3.29-11.43) 05/26/25 20:25 RBC 5.42 10^6/uL (3.85-5.65) 05/26/25 20:25 Hgb 15.90 g/dL (11.27-16.99) 05/26/25 20: Hct 47.9 % (36-47) H 05/26/25 20:25 MCV 88.4 fl (85-98) 05/26/25 20:25 MCH 29.3 pg (27-33) 05/26/25 20: MCHC 33.2 g/dL (30-55) 05/26/25 20:25 RDW 14.3 % (12.1-15.1) 05/26/25 20:25 Plt Count 198 10^3/cmm (157-399) 05/26/25 20:25 MPV 12.0 fL (7.4-10.4) H 05/26/25 20:25 Lymph % (Auto) Not Reportable 05/26/25 20:25 [place] % (Auto) Not Reportable 05/26/25 20:25 Lymph # (Auto) Not Reportable 05/26/25 20:25 [place] # (Auto) Not Reportable 05/26/25 20:25 Total Counted 100 (0-100) 05/26/25 20:25 Atypical Lymphs % 16.0 % (0-5) H 05/26/25 20:25 Segmented Neutrophils 37 % 05/26/25 20:25 Band Neutrophils Not Reportable 05/26/25 20:25 Absolute Lymphocytes 5.6 10^3/cmm (1.2-3.4) H 05/26/25 20:25 Lymphocytes (Manual) 38 % 05/26/25 20:25 Monocytes (Manual) 8.0 % 05/26/25 20:25 Absolute Monocytes 0.8 10^3/cmm (0.1-0.6) H 05/26/25 20:25 Eosinophils (Manual) 1 % 05/26/25 20:25 Absolute Eosinophils 0.1 10^3/cmm (0.0-0.7) 05/26/25 20:25 Basophils (Manual) 0.0 % 05/26/25 20:25 Absolute Basophils 0.0 10^3/cmm (0.0-0.2) 05/26/25 20:25 Platelet Estimate Normal (Normal) 05/26/25 20:25 Sodium 140 mmol/L (136-145) 05/26/25 20:25 Potassium 3.5 mmol/L (3.5-5.1) 05/26/25 20:25 Chloride 101 mmol/L (98-107) 05/26/25 20:25 Carbon Dioxide 20 mmol/L (22-29) L 05/26/25 20:25 Anion Gap 22.5 (5-19) H 05/26/25 20:25 BUN 20 mg/dL (6-20) 05/26/25 20:25 Creatinine 1.5 mg/dL (0.5-0.9) H 05/26/25 20:25 GFR Calculation 35.9 mL/min (90-130) L 05/26/25 20:25 Glucose 88 mg/dL (65-115) 05/26/25 20:25 Calculated Osmolality 292 mOsm/kg (285-295) 05/26/25 20: Calcium 9.9 mg/dL (8.5-10.5) 05/26/25: Total Bilirubin 0.4 mg/dL (0.15-1.2) 05/26/25 20:25 AST 14 U/L (0-32) 05/26/25 20:25 ALT 8 U/L (0-33) 05/26/25 20: Alkaline Phosphatase 98 U/L (35-105) 05/26/25 20: Total Protein 8.3 g/dL (6.6-8.7) 05/26/25: Albumin 4.4 g/dL (3.5-5.2) 05/26/25: Globulin 3.9 g/dL (1.3-4.6) 05/26/25: Lipase 16 U/L (13-60) 05/26/25 20:25 Urine Color Yellow (Yellow) 05/26/25 22:18 Urine Appearance Cloudy (CLEAR) A 05/26/25 22:18 Urine pH 5.5 (5-7) 05/26/25 22:18 Ur Specific [place] 1.018 (1.005-1.030) 05/26/25:18 Urine Protein 1+ (Negative) A 05/26/25:18 Urine Glucose (UA) Negative (Normal) 05/26/25:18 Urine Ketones 1+ (Negative) H 05/26/25 22:18 Urine Blood Non-haemolysed trace (Negative) 05/26/25 22:18 Urine Nitrate Negative (Negative) 05/26/25 22:18 Urine Bilirubin Negative (Negative) 05/26/25 22:18 Urine Urobilinogen 1.0 mg/dL (Negative) 05/26/25 22:18 Ur Leukocyte Esterase 2+ (Negative) A 05/26/25 22:18 Urine RBC 11-20 /hpf (0-2) H 05/26/25 22:18 Urine WBC >100 /hpf (0-5) H 05/26/25 22:18 Ur Squamous Epith Cells 0-5 /hpf (0-5) 05/26/25 22:18 Amorphous Sediment Not Reportable 05/26/25 22:18 Urine Bacteria 4+ /hpf (NONE) H 05/26/25 22:18 Hyaline Casts 11.31 /lpf 05/26/25 22:18 Urine Mucus 2+ /hpf 05/26/25 22:18 All radiology interpretation(s) finalized by discharge Discharge Plan Discharge Patient Disposition: Home Clinical Impression: Pyelonephritis Condition: Stable Prescriptions: New cefdinir 300 mg capsule 300 mg PO BID 10 Days Qty: 20 0RF No Action acetaminophen [Tylenol Extra Strength] 500 mg tablet 1,000 mg PO TID PRN (Reason: Pain) budesonide-formoterol [Symbicort] 160-4.5 mcg/actuation HFA aerosol inhaler 1 puff inhalation DAILY Eliquis 5 mg tablet 5 mg PO BID naloxone [Narcan] 4 mg/actuation spray,non-aerosol 1 spray intranasal Q3M Qty: 2 0RF Rx Instructions: spray 1 dose into ONE nostril; alternate nostrils w each dose until help arrives buspirone 5 mg tablet 5 mg PO DAILY Combivent Respimat 20-100 mcg/actuation mist 20 - 100 puff INHALATION DAILY polyethylene glycol 3350 17 gram/dose powder 17 g PO DAILY oxycodone 5 mg tablet 5 mg PO TID PRN (Reason: Pain) mupirocin 2 % ointment 1 applic TOPICAL BID PRN (Reason: Skin Irritation) albuterol sulfate [Ventolin HFA] 90 mcg/actuation HFA aerosol inhaler 2 puff INHALATION Q6H PRN (Reason: Shortness Of Breath) duloxetine 60 mg capsule,delayed release(DR/EC) 601 mg PO DAILY pregabalin 200 mg capsule 200 mg PO BID trazodone 50 mg tablet 50 - 100 mg PO .bedtime PRN (Reason: sleep) Discharge Orders: Discharge ED (Routine); Ordered 05/27/25 Ordered By: Yobany Rodriguez Referrals: Yobany Iverson [Primary Care Provider, Family Practice] Patient Instructions: Patient Portal & Yue Instructions, Pyelonephritis Activity Restrictions/Additional Instructions: You were prescribed antibiotics for bilateral kidney infections based on prior urine culture results. If you have worsening pain, fever, confusion, dysuria, frequency, please return to the emergency department as you may require IV antibiotics Print Language: Colombian Coding Level of Care Code ED Supervisor Dyer for Corazon Goldstein
[2025-05-27 01:00] VITALS: BP 138/86; PULSE 83; RESP 16; O2SAT 96
[2025-05-27] MEDS: iohexol 350 mg/mL 500 mL Btl (per mL) IV (01:04)
[2025-05-27 02:00] VITALS: BP 131/84; PULSE 82; RESP 16; O2SAT 95
[2025-05-27 03:00] VITALS: BP 127/90; PULSE 73; RESP 16; O2SAT 97
[2025-05-27] MEDS: cefTRIAXone 1,000 mg SDV 1000 MG IVP (03:18)
[2025-05-27 03:36] VITALS: BP 137/87; PULSE 71; RESP 16; O2SAT 97
== END 2025-05-27 03:39 | disposition home or self-care (01) ==
PROVIDERS: Emergency Medicine; Emergency Provider Student in an Organized Health Care Education/Training Program; PCP Family Medicine
DX: N12 Tubulo-interstitial nephritis, not specified as acute or chronic (principal); Z79.01 Long term (current) use of anticoagulants; Z87.891 Personal history of nicotine dependence
CPT/HCPCS: 36415; 71045; 74177; 80053; 81001; 83690; 85007; 85025; 87077; 87086; 87186; 94640; 96374; 96375; 99285; J0696; J2919; J9999